=== PATIENT | female | born 1935 | race Caucasian/White ===

== ENCOUNTER → 2016-07-02 | Outpatient (CLI) | payer BC ==
[~2016-07-02] MED LIST: ADVIN25/60 INH; ALBU1AER9 INH; DABI150C PO; LEVO-18 PO; LEVO25TA5 PO; LORA-741 PO; TPRSR/25 PO; TSSP PO
--- NOTE | 2016-07-02 11:59 | DIAGNOSTIC IMAGING REPORT ---
CHEST 2 VIEWS ROUTINE CLINICAL HISTORY: COUGH DIFFICULTY BREATHING COMPARISON STUDY: 10/17/2015 FINDINGS: The cardiac and mediastinal contours are normal. There is no evidence of focal pulmonary consolidation. There is no evidence of failure. No pleural effusions are visualized.[ IMPRESSION: No active disease in the chest. Electronically signed by: Daniel Key M.D. 07/02/2016 11:57 AM Dictated Date/Time: 07/02/2016 11:57 AM
== END | disposition home or self-care (01) ==
LOC: C.RADPV 11:33
PROVIDERS: ATTEND Nurse Practitioner
DX: R05 Cough (principal)

== ENCOUNTER → 2016-07-09 | Outpatient (CLI) | payer BC ==
[2016-07-09 12:51] LABS: BASO % 0.3 %; BASO ABS # 0.03 K/uL (0-0.2); COMPLETE YES; EOS % 1.1 %; HEMATOCRIT 41.7 % (37-47); IG% 0.6 %; LYMPH % 19.6 %; MEAN CELL VOLUME 93.9 fL (80-100); MEAN CORPUSCULAR HEMOGLOBIN 32.7 pg (25-34); MEAN CORPUSCULAR HGB CONC 34.8 g/dl (32-36); MEAN PLATELET VOLUME 11.2 fL (7.4-10.4); MONO % 8.2 %; NEUT % 70.2 %; PLATELET COUNT 352 K/uL (130-400); RED BLOOD COUNT 4.44 M/uL (4.2-5.4); WHITE BLOOD COUNT 10.73 K/uL (4.8-10.8)
[2016-07-09 13:10] LABS: ALT/SGPT 27 U/L (12-78); BLOOD UREA NITROGEN 14 mg/dl (7-18); BUN/CREATININE RATIO 21.8 (10-20); CALCIUM 9.4 mg/dl (8.5-10.1); CARBON DIOXIDE 26 mmol/L (21-32); CHLORIDE 95 mmol/L (98-107); CREATININE 0.62 mg/dl (0.60-1.20); GLUCOSE 84 mg/dl (70-99); POTASSIUM 4.3 mmol/L (3.5-5.1); SODIUM 132 mmol/L (136-145)
[2016-07-09 13:20] LABS: ALB/GLOB RATIO 0.8 (0.9-2); ALKALINE PHOSPHATASE 91 U/L (45-117); AST/SGOT 21 U/L (15-37)
== END | disposition home or self-care (01) ==
LOC: C.LABPVFM 10:11
PROVIDERS: ATTEND Nurse Practitioner
DX: I10 Essential (primary) hypertension (principal); E55.9 Vitamin D deficiency, unspecified

== ENCOUNTER → 2016-08-02 | Outpatient (CLI) | payer BC | END | disposition home or self-care (01) | LOC: C.MAMM 14:09 | PROVIDERS: ATTEND Family Medicine | DX: M81.0 Age-related osteoporosis without current pathological fracture (principal); M85.88 Other specified disorders of bone density and structure, other site; M85.851 Other specified disorders of bone density and structure, right thigh; M85.852 Other specified disorders of bone density and structure, left thigh ==

== ENCOUNTER → 2016-08-11 | Outpatient (CLI) | payer BC | END | disposition home or self-care (01) | LOC: C.LABPVFM 12:20 | PROVIDERS: ATTEND Family Medicine | DX: R05 Cough (principal) ==

== ENCOUNTER → 2016-08-12 | Outpatient (CLI) | payer BC | END | disposition home or self-care (01) | LOC: C.LABPVFM 10:04 | PROVIDERS: ATTEND Family Medicine | DX: R05 Cough (principal) ==

== ENCOUNTER → 2016-08-13 | Outpatient (CLI) | payer BC ==
--- NOTE | 2016-08-13 09:48 | DIAGNOSTIC IMAGING REPORT ---
ULTRASOUND KIDNEYS AND BLADDER CLINICAL HISTORY: Hyponatremia. COMPARISON STUDY: Abdominal CT dated 12/31/2009. TECHNIQUE: Real-time, grayscale, and color flow sonography of the kidneys and bladder is performed. Images are reviewed in the transverse and longitudinal planes. FINDINGS: Kidneys: The kidneys are normal in size and echotexture. The right kidney measures 9.1 x 3.3 x 4.6 cm and the left kidney measures 9.8 x 4.8 x 4.8 cm. There is no hydronephrosis. No shadowing renal calculi are identified. There is no sonographic evidence of contour deforming renal mass lesion. No perinephric fluid is identified. Bladder: The bladder is normal in appearance. Bilateral ureteral jets were seen. Pleural spaces: There is a small right pleural effusion with associated volume of 75 cc. IMPRESSION: 1. The kidneys are normal in size and without hydronephrosis. 2. The bladder is normal as imaged. 3. Small right pleural effusion. Electronically signed by: Joe Simon M.D. 08/13/2016 9:46 AM Dictated Date/Time: 08/13/2016 9:45 AM
== END | disposition home or self-care (01) ==
LOC: C.ULTR 09:07
PROVIDERS: ATTEND Family Medicine
DX: E87.1 Hypo-osmolality and hyponatremia (principal)

== ENCOUNTER → 2016-08-24 | Outpatient (CLI) | payer BC ==
--- NOTE | 2016-08-24 13:02 | DIAGNOSTIC IMAGING REPORT ---
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 Cough. COMPARISON STUDY: Chest CT July 15, 2014 and chest radiograph July 02, 2016. CT DOSE: 208.73 mGy.cm TECHNIQUE: Axial images of the chest were obtained without IV contrast. Images were reviewed in the axial, sagittal, and coronal planes. IV contrast was not administered for this examination. FINDINGS: No enlarged axillary, mediastinal or hilar lymph nodes are present. Size of the heart is at the upper limits of normal. Small right and trace left pleural effusions are present. There is mild groundglass opacity. There is mild interlobular septal thickening. This suggests mild pulmonary edema. Scattered minimal tree-in-bud opacities are noted within the lungs and are most evident within the anterior basilar segment of the right lower lobe. There is no lobar consolidation. Central airways are patent. No cavitation is present. Bony thorax is stable. Upper abdomen is unremarkable on this unenhanced exam. IMPRESSION: 1. Small right and trace left pleural effusions. 2. Mild groundglass opacities and interlobular septal thickening which suggests mild pulmonary edema. 3. Minimal scattered tree-in-bud opacities, most evident within the right lower lobe. The findings suggest bronchiolitis and likely reflect a mild infectious process. No confluent consolidation. Electronically signed by: Reginaldo Barnes M.D. 08/24/2016 1:01 PM Dictated Date/Time: 08/24/2016 12:54 PM
== END | disposition home or self-care (01) ==
LOC: C.CTS 12:21
PROVIDERS: ATTEND Internal Medicine Pulmonary Disease
DX: B44.89 Other forms of aspergillosis (principal); J90 Pleural effusion, not elsewhere classified

== ENCOUNTER → 2016-08-27 | Outpatient (CLI) | payer BC | END | disposition home or self-care (01) | LOC: C.LABPVFM 10:14 | PROVIDERS: ATTEND Internal Medicine Pulmonary Disease | DX: B44.89 Other forms of aspergillosis (principal) ==

== ENCOUNTER → 2016-10-06 | Outpatient (CLI) | payer BC ==
--- NOTE | 2016-10-06 11:20 | DIAGNOSTIC IMAGING REPORT ---
LUMBAR SPINE MRI HISTORY: Right-sided back and leg pain. TECHNIQUE: Multiplanar multisequence MRI of the lumbar spine was performed without the use of contrast. COMPARISON: None. FINDINGS: For the purpose of the report the L5-S1 disc space will be located on axial image 23 of 25. Moderate dextroscoliosis. 5 mm of anterolisthesis of L4 on L5 and 9 mm of anterolisthesis of L5 on S1. Moderate to severe facet degenerative changes at L4-L5 and L5-S1. Moderate to severe disc space narrowing at L1-L2, L2-L3, and L5-S1. There is mild disc space narrowing at L3-L4 and L4-L5. There are endplate osteophytes seen at L1-L3. Endplate edema and mild prevertebral edema at L2-L3 is likely due to the degenerative change. No definite fractures identified. The conus terminates at the L1 level. The visualized retroperitoneal soft tissues are unremarkable. L1-L2: Small broad-based posterior disc bulge without significant central canal narrowing. There is mild left neural foraminal narrowing. L2-L3: Broad-based posterior disc bulge with mild ligamentum and facet hypertrophy resulting in mild central canal and mild right neural foraminal narrowing. There is moderate left neural foraminal narrowing. L3-L4: Broad-based posterior disc bulge with ligamentum and facet hypertrophy resulting in mild central canal and mild bilateral neural foraminal narrowing. L4-L5: Broad-based posterior disc bulge with ligamentum and facet hypertrophy. In conjunction with the spondylolisthesis this results in moderate central canal and mild to moderate bilateral neural foraminal narrowing. L5-S1: Broad-based posterior disc bulge with facet hypertrophy. In conjunction with the spondylolisthesis this results in moderate central canal narrowing and severe right neural foraminal narrowing. There is moderate to severe left neural foraminal narrowing. IMPRESSION: 1. Moderate dextroscoliosis. 2. Anterolisthesis of L4 on L5 and L5 on S1 as described above. 3. Multilevel degenerative disc disease as described above most pronounced at the L4-L5 and L5-S1 levels which results in moderate central canal narrowing. Electronically signed by: Bk Alvarez M.D. 10/06/2016 11:19 AM Dictated Date/Time: 10/06/2016 11:07 AM
== END | disposition home or self-care (01) ==
LOC: C.MRI 09:39
PROVIDERS: ATTEND Orthopaedic Surgery Orthopaedic Surgery of the Spine
DX: M54.5 Low back pain (principal); M41.80 Other forms of scoliosis, site unspecified; M43.16 Spondylolisthesis, lumbar region; M51.36 Other intervertebral disc degeneration, lumbar region; M51.37 Other intervertebral disc degeneration, lumbosacral region; I10 Essential (primary) hypertension

== ENCOUNTER → 2016-10-06 | Outpatient (CLI) | payer BC ==
[2016-10-06 10:33] LABS: BLOOD UREA NITROGEN 24 mg/dl (7-18); BUN/CREATININE RATIO 38.1 (10-20); CARBON DIOXIDE 31 mmol/L (21-32); CHLORIDE 97 mmol/L (98-107); CREATININE 0.62 mg/dl (0.60-1.20); GLUCOSE 71 mg/dl (70-99); POTASSIUM 4.5 mmol/L (3.5-5.1); SODIUM 133 mmol/L (136-145)
[2016-10-06 10:34] LABS: PHOSPHORUS 3.9 mg/dl (2.5-4.9)
== END | disposition home or self-care (01) ==
LOC: C.LAB 09:40
PROVIDERS: ATTEND Internal Medicine Nephrology
DX: I10 Essential (primary) hypertension (principal)

== ENCOUNTER → 2016-10-27 | Outpatient (CLI) | payer BC ==
[2016-10-27 18:37] LABS: BLOOD UREA NITROGEN 16 mg/dl (7-18); CALCIUM 9.2 mg/dl (8.5-10.1); CARBON DIOXIDE 31 mmol/L (21-32); CHLORIDE 93 mmol/L (98-107); GLUCOSE 87 mg/dl (70-99); PHOSPHORUS 3.4 mg/dl (2.5-4.9); POTASSIUM 4.5 mmol/L (3.5-5.1); SODIUM 130 mmol/L (136-145)
== END | disposition home or self-care (01) ==
LOC: C.LABPVFM 11:52
PROVIDERS: ATTEND Internal Medicine Nephrology
DX: E22.2 Syndrome of inappropriate secretion of antidiuretic hormone (principal); B44.89 Other forms of aspergillosis

== ENCOUNTER → 2016-12-02 | Outpatient (CLI) | payer BC ==
--- NOTE | 2016-12-02 13:49 | MAMMOGRAPHY REPORT ---
UNILATERAL LEFT DIGITAL DIAGNOSTIC MAMMOGRAM TOMOSYNTHESIS WITH CAD AND TARGETED LEFT ULTRASOUND: 12/02 CLINICAL HISTORY: 81-year-old woman presents after her physician found a lump in the lateral left demetra ast. Patient is unable to feel the lump herself. No skin erythema, thickening or nipple discharge. No family history of breast cancer. TECHNIQUE: Left breast tomosynthesis in addition to standard 2D mammography was performed. Current st udy was also evaluated with a Computer Aided Detection (CAD) system. COMPARISON: Comparison is made to exams dated: 12/30/2015 mammogram, 12/24/2014 mammogram, 09/19/2012 ma mmogram, 09/08/2010 mammogram - [facility], 09/23/2008, and 09/21/2007. BREAST COMPOSITION: There are scattered areas of fibroglandular density in the left breast. FINDINGS: No new suspicious mass, architectural distortion or cluster of microcalcifications is seen in the left breast. A skin palpable marker was not placed as the patient is unable to feel the lump herself. Targeted ultrasound was performed in the area of palpable lump identified by her physician, in the ap proximate 3:00 left breast, 4 cm from the nipple. Real-time high-resolution ultrasound performed fro m the 2:00, 3:00 and 4:00 axes demonstrates no suspicious solid or cystic mass. Normal fibroglandula r tissue is seen. IMPRESSION: ACR BI-RADS CATEGORY 2: BENIGN, TARGETED ULTRASOUND ACR BI-RADS CATEGORY 2: BENIGN Stable mammographic appearance of the left breast. There is no mammographic or targeted sonographic evidence of malignancy. No suspicious mammographic or sonographic abnormality is identified to expla in the palpable lump in the lateral left breast, identified by the patient's physician. Therefore, c linical follow-up is recommended, as biopsy of a clinically suspicious mass should not be precluded b y negative imaging. Otherwise, return to annual screening mammography schedule (due December 2016). Approximately 10% of breast cancers are not detected with mammography. A negative mammographic report should not delay biopsy if a clinically suggestive mass is present. Ann Mckeon M.D. ay/:12/02/2016 13:20:23 Accounting Manager Cpa: Maia Velazquez, [facility] letter sent: Normal 1/2 BI-RADS Code: ACR BI-RADS Category 2: Benign Ultrasound BI-RADS: ACR BI-RADS Category 2: Benign
== END | disposition home or self-care (01) ==
LOC: C.MAMM 12:49
PROVIDERS: ATTEND Family Medicine
DX: N63 Unspecified lump in breast (principal)

== ENCOUNTER → 2016-12-23 | Outpatient (CLI) | payer BC ==
[2016-12-23 18:30] LABS: BLOOD UREA NITROGEN 18 mg/dl (7-18); BUN/CREATININE RATIO 28.3 (10-20); CALCIUM 8.4 mg/dl (8.5-10.1); CARBON DIOXIDE 29 mmol/L (21-32); CHLORIDE 98 mmol/L (98-107); CREATININE 0.63 mg/dl (0.60-1.20); GLUCOSE 77 mg/dl (70-99); PHOSPHORUS 3.9 mg/dl (2.5-4.9); POTASSIUM 4.4 mmol/L (3.5-5.1); SODIUM 133 mmol/L (136-145)
== END | disposition home or self-care (01) ==
LOC: C.LABPVFM 10:28
PROVIDERS: ATTEND Internal Medicine Nephrology
DX: E03.9 Hypothyroidism, unspecified (principal); E22.2 Syndrome of inappropriate secretion of antidiuretic hormone

== ENCOUNTER → 2017-01-07 | Outpatient (CLI) | payer BC ==
--- NOTE | 2017-01-07 11:20 | DIAGNOSTIC IMAGING REPORT ---
CHEST 2 VIEWS ROUTINE HISTORY: 81 years-old Female R05 acute cough COMPARISON: Chest radiograph 07/02/2016, chest CT 08/24/2016 TECHNIQUE: Frontal and lateral views of the chest FINDINGS: Cardiomediastinal and hilar silhouettes are within normal limits. There is atherosclerosis of the aorta. Lungs are mildly hyperinflated. There is no pneumothorax, pleural effusion, focal airspace consolidation or overt pulmonary edema. There is convex left curvature of the lumbar spine with multilevel degenerative changes present. IMPRESSION: Mild hyperinflation without acute cardiopulmonary process. The above report was generated using voice recognition software. It may contain grammatical, syntax or spelling errors. Electronically signed by: Anthony Kitchen M.D. 01/07/2017 11:18 AM Dictated Date/Time: 01/07/2017 11:17 AM
== END | disposition home or self-care (01) ==
LOC: C.RAD1850 10:57
PROVIDERS: ATTEND Physician Assistant
DX: R05 Cough (principal)

== ENCOUNTER → 2017-05-03 | Outpatient (CLI) | payer BC ==
[2017-05-03 17:58] LABS: BLOOD UREA NITROGEN 21 mg/dl (7-18); BUN/CREATININE RATIO 34.9 (10-20); CALCIUM 8.9 mg/dl (8.5-10.1); CARBON DIOXIDE 29 mmol/L (21-32); CHLORIDE 97 mmol/L (98-107); CREATININE 0.61 mg/dl (0.60-1.20); GLUCOSE 93 mg/dl (70-99); MAGNESIUM 2.2 mg/dl (1.8-2.4); POTASSIUM 4.1 mmol/L (3.5-5.1); SODIUM 131 mmol/L (136-145)
[2017-05-03 17:59] LABS: PHOSPHORUS 3.9 mg/dl (2.5-4.9)
== END | disposition home or self-care (01) ==
LOC: C.LABPVFM 13:17
PROVIDERS: ATTEND Internal Medicine Nephrology
DX: E22.2 Syndrome of inappropriate secretion of antidiuretic hormone (principal)

== ENCOUNTER → 2017-06-01 | Outpatient (CLI) | payer BC ==
--- NOTE | 2017-06-01 15:45 | DIAGNOSTIC IMAGING REPORT ---
BILATERAL LOWER EXTREMITY VENOUS DOPPLER HISTORY: Acute pain of the right lower extremity R23.4 Recent skin [id number] COMPARISON STUDY: None. FINDINGS: There is normal compressibility, flow, and augmentation within the bilateral lower extremity deep venous systems. IMPRESSION: No sonographic evidence of deep venous thrombosis within the right or left lower extremity. Electronically signed by: Anthony Kitchen M.D. 06/01/2017 3:44 PM Dictated Date/Time: 06/01/2017 3:43 PM
--- NOTE | 2017-06-01 15:55 | DIAGNOSTIC IMAGING REPORT ---
ARTERIAL DOPPLER ULTRASOUND LOWER EXTREMITY BILATERAL CLINICAL HISTORY: R23.4 Recent skin [id number] possible arterial insufficiency. COMPARISON STUDY: No previous studies for comparison. FINDINGS: Color flow and spectral waveform analysis was performed. The right arm brachial systolic pressure was 178 mmHg. The left arm brachial systolic pressure was 177 mmHg. The right posterior tibial systolic pressure was 190 mmHg. The left posterior tibial systolic pressure was 189 mmHg. The right dorsalis pedis systolic pressure was 187 mmHg. The left dorsalis pedis systolic pressure was 188 mmHg. The ankle arm indices were normal bilaterally measuring 1.1. No elevated velocities are visualized. On the right there is triphasic flow within the common femoral superficial femoral and popliteal arteries. There is biphasic flow within the anterior tibial. There is triphasic flow within the posterior tibial. There is biphasic flow within the peroneal. In the left. There is triphasic flow within the common femoral and superficial femoral arteries. There is biphasic flow within the popliteal anterior tibial arteries. There is triphasic flow within the posterior tibial and peroneal arteries. IMPRESSION: No evidence of lower extremity arterial stenosis. Electronically signed by: Daniel Key M.D. 06/01/2017 3:54 PM Dictated Date/Time: 06/01/2017 3:51 PM
== END | disposition home or self-care (01) ==
LOC: C.ULTR 14:00
PROVIDERS: ATTEND Family Medicine
DX: R23.4 Changes in skin texture (principal); M79.604 Pain in right leg

== ENCOUNTER → 2017-06-13 | Outpatient (CLI) | payer BC | END | disposition home or self-care (01) | LOC: C.RDSM 09:00 | PROVIDERS: ATTEND Physical Medicine & Rehabilitation Sports Medicine | DX: M25.511 Pain in right shoulder (principal); M25.512 Pain in left shoulder ==

== ENCOUNTER → 2017-06-21 | Outpatient (CLI) | payer BC ==
--- NOTE | 2017-06-21 14:11 | DIAGNOSTIC IMAGING REPORT ---
FLUOROSCOPIC GUIDED LEFT SHOULDER ARTHROGRAM FLUOROSCOPY TIME: 5 seconds. HISTORY: Left shoulder pain.. PROCEDURE: After obtaining written informed consent, the patient was placed supine on the fluoroscopy table. A suitable site for needle insertion was marked using fluoroscopic guidance. The left shoulder was prepped and draped in the usual sterile fashion. 1% lidocaine was used for skin, subcutaneous and deep soft tissue anesthesia. Under intermittent fluoroscopic guidance, a 22 gauge 1.5 inch needle was inserted into the left glenohumeral joint. A total of 14 cc of one-to-one mixture of dilute Gadavist and Optiray 300 were injected. The needle was then removed. There were no apparent complications. The patient was transported to MR for further imaging. IMPRESSION: Fluoroscopic-guided left shoulder arthrogram without immediate complication. Total injected volume was 14 cc. MR portion of the examination will be dictated separately. Electronically signed by: Bk Alvarez M.D. 06/21/2017 2:10 PM Dictated Date/Time: 06/21/2017 2:10 PM
--- NOTE | 2017-06-22 07:38 | DIAGNOSTIC IMAGING REPORT ---
L UPPER EXTREMITY JOINT W/ CLINICAL HISTORY: 81 years-old Female with LT SHOULDER PAIN. Chronic left shoulder pain COMPARISON: Left shoulder radiographs 06/13/2017. TECHNIQUE: Multiplanar, multi sequence MRI of the left shoulder was performed following the intra-articular administration of contrast solution containing Gadavist. FINDINGS: The large field view kier pleater localizer images demonstrate no gross abnormality. ROTATOR CUFF: There is mild fraying of the anterior insertional fibers supraspinatus tendon suggesting low-grade articular sided insertional tearing. No high-grade or full-thickness tear. Mild supraspinatus and infraspinatus tendinosis. The teres minor tendon appears intact. Moderate tendinosis of the subscapularis tendon with interstitial contrast, likely secondary to recent procedure. No full-thickness tear. The rotator cuff musculature is normal in morphology and signal. BICEPS TENDON: The longhead biceps tendon is intact. No evidence of tendinosis. The biceps mitchel and anchor are intact. LABRUM: There is multifocal irregularity of the labrum which appears diminutive. Tear of the anterior and posterior portions of the superior labrum which is likely chronic without associated edema to suggest acute tear. There is no evidence for a paralabral cyst. GLENOHUMERAL JOINT: Severe joint space narrowing with multifocal chondral thinning and prominent marginal spurring with subchondral sclerosis involves the glenohumeral joint with large subchondral cysts within the glenoid. No definite intra-articular loose body identified. No acute fracture or dislocation identified. ACROMIOCLAVICULAR JOINT: Only minimal degenerative changes of the AC joint. No evidence of os acromiale. There is trace subacromial/subdeltoid bursitis. OUTLET SPACES: The suprascapular notch and quadrilateral space are without obstructing or space occupying lesions. BONE MARROW: No focal abnormality, fracture or marrow occupying lesion. SOFT TISSUES: The periarticular soft tissues are unremarkable. IMPRESSION: 1. Severe osteoarthritis of the left glenohumeral joint with chondral thinning, prominent marginal spurring and large subchondral cysts within the glenoid. No definite intra-articular loose body identified. 2. Mild fraying of the anterior insertional supraspinatus tendon without high-grade partial, full-thickness tear or retraction identified. Mild supraspinatus and infraspinatus tendinosis without muscular atrophy. 3. Intact long head biceps tendon. 4. Trace subacromial/subdeltoid bursitis. The above report was generated using voice recognition software. It may contain grammatical, syntax or spelling errors. Electronically signed by: Anthony Kitchen M.D. 06/22/2017 7:37 AM Dictated Date/Time: 06/21/2017 3:03 PM
== END | disposition home or self-care (01) ==
LOC: C.MRIBC 13:03
PROVIDERS: ATTEND Physical Medicine & Rehabilitation Sports Medicine
DX: M25.511 Pain in right shoulder (principal); M25.512 Pain in left shoulder; M19.012 Primary osteoarthritis, left shoulder; M75.92 Shoulder lesion, unspecified, left shoulder; M85.40 Solitary bone cyst, unspecified site

== ENCOUNTER 2020-02-14 08:03 | Inpatient (IN) ==
[2020-02-14] MEDS ORDERED: ASPIRIN CHEW 324 MG PO STA (08:21)
[2020-02-14] MEDS ORDERED: NITROGLYCERIN SL 0.4 MG/TAB TAB SL PRN ×2 (08:21→12:56)
--- NOTE | 2020-02-14 08:28 | Emergency Department Note ---
History of Present Illness General Chief complaint: Chest Pain Stated complaint: CHEST PAIN,HTN Time Seen by Provider: 02/14/20 08:11 Source: patient Mode of arrival: ambulatory Limitations: no limitations History of Present Illness Maximum Pain Intensity: 5 This patient is an 84-year-old female who presents to the emergency department accompanied by a friend for evaluation of chest pain. Patient reports she has had central chest pain which started about 2 hours prior to arrival. The patient reports she had gone outside to sweep up her shed and when she came back inside and started making coffee, she developed a pain in the center of her chest. She reports the pain is a 5/10. It feels like a pressure in the center of her chest. Pain is slightly worse on the left side of her chest. Pain does not radiate anywhere. She denies shortness of breath, nausea/vomiting or recent illness. She checked her blood pressure and noted it was very elevated. Patient has a history of asthma and reports that she used her albuterol inhaler without any improvement of the pain. She states that nothing makes the pain better or worse. It is not exertional. She has a history of atrial fibrillation and also notes that her blood pressure has been elevated recently and she has been working with her asset protection assistant and primary care provider to help control this. She denies any history of MO, noting that her most recent stress test was in 2004. She follows with Dr. Bal from cardiology. Home Medications Home Medications Medication Instructions Recorded Confirmed Type cholecalciferol (vitamin D3) 50 2,000 units PO DAILY 08/28/18 02/14/20 History mcg (2,000 unit) capsule lutein 20 mg capsule 20 mg PO DAILY 08/28/18 02/14/20 History calcium carbonate 500 mg calcium 500 mg PO DAILY tab 01/09/19 02/14/20 History (1,250 mg) chewable tablet omega-3 fatty acids 1,000 mg 1,000 mg PO DAILY 01/09/19 02/14/20 History capsule acetaminophen 500 mg capsule 500 mg PO BID PRN cap 03/20/19 02/14/20 History biotin 2,500 mcg capsule 2,500 mcg PO DAILY cap 03/20/19 02/14/20 History glucosamine sulfate 500 mg capsule 500 mg PO DAILY cap 03/20/19 02/14/20 History metoprolol tartrate 50 mg tablet 75 mg PO BID #90 tab 06/19/19 02/14/20 Rx apixaban 5 mg tablet 5 mg PO BID #60 tab 09/07/19 02/14/20 Rx montelukast 10 mg tablet 10 mg PO DAILY #90 tab 10/29/19 02/14/20 Rx albuterol sulfate 90 mcg/actuation 2 puffs INHALATION QID PRN gm 12/24/19 02/14/20 History aerosol inhaler budesonide-formoterol HFA 160 2 puffs INHALATION BID gm 12/24/19 02/14/20 History mcg-4.5 mcg/actuation aerosol inhaler zolpidem 5 mg tablet 5 mg PO DAILY #30 tab 01/23/20 02/14/20 Rx levothyroxine 25 mcg tablet 25 mcg PO DAILY #90 tab 02/08/20 02/14/20 Rx losartan 100 mg tablet 100 mg PO DAILY #90 tab 02/08/20 02/14/20 Rx Allergies Allergy/AdvReac Type Severity Reaction Status Date / Time clomipramine AdvReac Intermediate FLU-LIKE Verified 02/14/20 08:53 SYMPTOMS Dust Mite Extract Allergy Unknown Unknown Uncoded 02/14/20 08:53 Past Med/Surg History Medical History Diverticulosis Hypertension SIADH (syndrome of inappropriate ADH production) Surgical History H/O cataract removal with insertion of prosthetic lens H/O shoulder surgery History of dilatation and curettage History of gynecological procedure Insertion of pessary History of tooth extraction S/P cataract surgery S/P T&A (status post tonsillectomy and adenoidectomy) Family History Father Family history of asthma Pneumonia H/O heart bypass surgery Osteoporosis Asthma Mother Hypertension Osteoporosis Denies family history of Ovarian cancer Prostate cancer Myocardial infarction Breast cancer Colorectal cancer Social History Smoking Status: Former smoker Second Hand Exposure: No; Hx Alcohol Use: Yes Alcohol type: wine Hx Substance Use: No Preferred Language: Azerbaijani Communication Ability: Effective Visual Impairment: Limited Hearing Ability: Normal Clinical Operations Leader Required: No Beliefs That Will Affect Care: None marital status: single Current Living Situation: Spouse Current Living Situation Comment: in a house current occupational status: employed Other Information That Helps Us Care for You: No Feels Safe at Home: Yes Safety Concerns: Feels Safe At This Time caffeine: Yes Dental Care, Regularly: Yes Physical Activity Frequency: 3-4 Times per Week Seatbelt Use: always Sunscreen Use: Yes Review of Systems A total of 10 systems reviewed and were otherwise negative Physical Exam Vital Signs Vital Signs - 24 hr 02/14/20 08:07 02/14/20 08:18 02/14/20 08:35 Temperature 36.3 C L Temperature Source Oral Pulse Rate 97 H 87 Pulse Rate [Apical] 91 H Pulse Rhythm Irregular Pulse Rhythm [Apical] Irregular Pulse Strength [Apical] Normal Respiratory Rate 18 22 22 Respiratory Effort / Characteristics Non-Labored Spontaneous Non-Labored Spontaneous Respiratory Depth Normal Normal Respiratory Pattern Regular Blood Pressure 199/135 H Blood Pressure [Left Arm] 216/137 H Blood Pressure Mean 156 Blood Pressure Mean [Left Arm] 163 Blood Pressure Position Sitting Blood Pressure Position [Left Arm] Lying Pulse Oximetry 96 96 96 Oxygen Delivery Method Room Air Room Air Room Air Sepsis Recent Fever Within 48 Hours No Sepsis New/Unexplained Change in Mental Status N/A Sepsis Action Taken by Nursing No Action Required 02/14/20 10:12 02/14/20 12:08 Temperature Temperature Source Pulse Rate Pulse Rate [Apical] 89 95 H Pulse Rhythm Pulse Rhythm [Apical] Irregular Pulse Strength [Apical] Normal Respiratory Rate 20 20 Respiratory Effort / Characteristics Non-Labored Spontaneous Respiratory Depth Normal Respiratory Pattern Regular Blood Pressure Blood Pressure [Left Arm] 173/123 H 155/106 H Blood Pressure Mean Blood Pressure Mean [Left Arm] 139 122 Blood Pressure Position Blood Pressure Position [Left Arm] Sitting Pulse Oximetry 95 95 Oxygen Delivery Method Room Air Room Air Sepsis Recent Fever Within 48 Hours Sepsis New/Unexplained Change in Mental Status Sepsis Action Taken by Nursing VITALS: Vitals are noted on the nurse's note and reviewed by myself. GENERAL: This is an 84-year-old female, in no acute distress, nondiaphoretic. SKIN: The skin was without rashes. EARS: Moderate amount of cerumen in bilateral external auditory canals. EYES: Pupils equal round and reactive to light and accommodation. MOUTH: Mucous membranes moist. Tonsils are not enlarged. Pharynx without e rythema or exudate. NECK: Supple without nuchal rigidity. No lymphadenopathy. HEART: Regular rate, irregular rhythm without murmurs gallops or rubs. LUNGS: Clear to auscultation bilaterally without wheezes, rales or rhonchi. No retractions or accessory muscle use. ABDOMEN: Positive bowel sounds x 4. Soft, nontender to palpation. EXTREMITIES: No edema or calf tenderness. NEURO: Patient was alert and oriented to person place and time. Course Reevaluation(s) Reevaluation #1: Patient was reevaluated and reports her chest pain has resolved after the nitro. 0.5 inch Nitropaste was applied. Consultations Consultation #1: Dr. Aura ROTHMAN hospitalist Administered Medications Discontinued Medications Aspirin (Aspirin Chew 324 Mg) 324 mg PO NOW STA Stop: 02/14/20 08:22 Last Admin: 02/14/20 08:40 Dose: 324 mg Documented by: [id number] Nitroglycerin (Nitroglycerin Sl 0.4 Mg/Tab Tab) 0.4 mg SL UD PRN PRN Reason: Chest Pain Stop: 03/15/20 08:20 Last Admin: 02/14/20 08:40 Dose: 0.4 mg Documented by: [id number] Nitroglycerin (Nitroglycerin 2% Ointment 30gm Tube) 0.5 inch EXT NOW STA Stop: 02/14/20 09:37 Last Admin: 02/14/20 10:08 Dose: 0.5 inch Documented by: [id number] Medical Decision Making Differential Diagnosis Differential diagnosis includes acute coronary syndrome, pulmonary embolism, pneumothorax, pericarditis, myocarditis, endocarditis, anxiety, musculoskeletal pain, GERD, costochondritis, pneumonia, among others. Medical Records Attestation: I reviewed the patient's medical records. Home Medications Current Medication List: was personally reviewed by me Laboratory Data Attestation: I reviewed the patient's lab results. Result diagrams: 02/14/20 08:20 02/14/20 08:20 Lab Results 02/14/20 02/14/20 02/14/20 Range/Units 08:20 08:20 08:20 WBC 9.00 (4.8-10.8) K/uL RBC 4.67 (4.2-5.4) M/uL Hgb 15.6 (12.0-16.0) g/dL Hct 45.1 (37-47) % MCV 96.6 (80-100) fL MCH 33.4 (25-34) pg MCHC 34.6 (32-36) g/dL RDW Std Deviation 45.7 (36.4-46.3) fL RDW Coeff of Geo 13.0 (11.5-14.5) % Plt Count 304 (130-400) K/uL MPV 10.9 H (7.4-10.4) fL Immature Gran % (Auto) 0.2 % Neut % (Auto) 66.0 % Lymph % (Auto) 23.3 % [place] % (Auto) 9.1 % Eos % (Auto) 1.0 % Baso % (Auto) 0.4 % Neut # (Auto) 5.93 (1.4-6.5) K/uL Lymph # (Auto) 2.10 (1.2-3.4) K/uL [place] # (Auto) 0.82 H (0.11-0.59) K/uL Eos # (Auto) 0.09 (0-0.5) K/uL Baso # (Auto) 0.04 (0-0.2) K/uL Immature Gran # (Auto) 0.02 (0.00-0.02) K/uL PT 11.4 (9.0-12.0) Seconds INR 1.1 (0.9-1.1) APTT 32.3 H (21.0-31.0) Seconds PTT Ratio 1.2 Sodium 131 L (136-145) mmol/L Potassium 4.3 (3.5-5.1) mmol/L Chloride 97 L (98-107) mmol/L Carbon Dioxide 29 (21-32) mmol/L Anion Gap 5.0 (3-11) BUN 20 H (7-18) mg/dl Creatinine 0.80 (0.6-1.2) mg/dl Est Cr Clr Drug Dosing 36.5 ml/min Est GFR ( Amer) 79.6 Est GFR (Non-Af Amer) 68.7 BUN/Creatinine Ratio 24.9 H (10-20) Glucose 106 H (70-99) mg/dl Calcium 8.7 (8.5-10.1) mg/dl Magnesium (1.8-2.4) mg/dl Total Bilirubin 0.4 (0.2-1) mg/dl AST 29 (15-37) U/L ALT 40 (12-78) U/L Alkaline Phosphatase 134 H (45-117) U/L Troponin I < 0.015 (0-0.045) ng/ml Total Protein 7.5 (6.4-8.2) gm/dl Albumin 3.5 (3.4-5.0) gm/dl Globulin 4.0 (2.5-4.0) gm/dl Albumin/Globulin Ratio 0.9 (0.9-2) 02/14/20 02/14/20 02/14/20 Range/Units 10:43 11:36 11:38 WBC (4.8-10.8) K/uL RBC (4.2-5.4) M/uL Hgb (12.0-16.0) g/dL Hct (37-47) % MCV (80-100) fL MCH (25-34) pg MCHC (32-36) g/dL RDW Std Deviation (36.4-46.3) fL RDW Coeff of Geo (11.5-14.5) % Plt Count (130-400) K/uL MPV (7.4-10.4) fL Immature Gran % (Auto) % Neut % (Auto) % Lymph % (Auto) % [place] % (Auto) % Eos % (Auto) % Baso % (Auto) % Neut # (Auto) (1.4-6.5) K/uL Lymph # (Auto) (1.2-3.4) K/uL [place] # (Auto) (0.11-0.59) K/uL Eos # (Auto) (0-0.5) K/uL Baso # (Auto) (0-0.2) K/uL Immature Gran # (Auto) (0.00-0.02) K/uL PT (9.0-12.0) Seconds INR (0.9-1.1) APTT (21.0-31.0) Seconds PTT Ratio Sodium (136-145) mmol/L Potassium (3.5-5.1) mmol/L Chloride (98-107) mmol/L Carbon Dioxide (21-32) mmol/L Anion Gap (3-11) BUN (7-18) mg/dl Creatinine (0.6-1.2) mg/dl Est Cr Clr Drug Dosing ml/min Est GFR ( Amer) Est GFR (Non-Af Amer) BUN/Creatinine Ratio (10-20) Glucose (70-99) mg/dl Calcium (8.5-10.1) mg/dl Magnesium 2.2 (1.8-2.4) mg/dl Total Bilirubin (0.2-1) mg/dl AST (15-37) U/L ALT (12-78) U/L Alkaline Phosphatase (45-117) U/L Troponin I Cancelled 1.510 H* (0-0.045) ng/ml Total Protein (6.4-8.2) gm/dl Albumin (3.4-5.0) gm/dl Globulin (2.5-4.0) gm/dl Albumin/Globulin Ratio (0.9-2) Imaging Data Attestation: I personally reviewed and interpreted this imaging study as foll ows: Radiologist's Impression: XR chest 1V portable HISTORY: 84 years-old Female Chest Pain acute atypical chest pain COMPARISON: Chest radiograph 02/27/2019 TECHNIQUE: Portable AP view of the chest FINDINGS: Nipple shadow projects over the lateral left lung base. The cardiomediastinal and hilar silhouettes are within normal limits. Calcified plaque of the thoracic aortic arch. There is no pneumothorax, pleural effusion, airspace consolidation or overt pulmonary edema. Mild chronic interstitial coarsening. Degenerative changes of the shoulders and spine. IMPRESSION: No acute process. 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 Patient was placed on the equities trader. Patient was noted to be in atrial fibrillation at an initial rate of 91 bpm. The patient is an 84-year-old female who presents today complaining of chest pain which started about 2 hours prior to arrival. Labs revealed no leukocytosis, anemia or concerning electrolyte abnormalities. Patient is hyponatremic which is her baseline due to history of SIADH. Initial troponin was not elevated. Initial EKG shows no ST elevation or other acute ischemic changes. Patient is in atrial fibrillation which is normal for her. Patient received nitro with significant improvement of her symptoms. Nitropaste was applied. I am very suspicious of a cardiac source of her chest pain. The [facility] service was consulted and agrees to evaluate the patient for [facility] care. Impression & Plan Substernal chest pain Discharge Plan Visit Data Chief Complaint: Chest Pain Stated Complaint: CHEST PAIN,HTN ED Provider: Delfino Varghese ED Midlevel Provider: Guillermina Beard Discharge Problem: Substernal chest pain Patient Disposition: Admitted As Inpatient Discharge Instructions Interventions: ED Discharge Assessment Last Done: 02/14/20 13:45
[2020-02-14 08:30] LABS: Basophils # (auto) 0.04 K/uL (0-0.2); Basophils % (auto) 0.4 %; Eosinophils # (auto) 0.09 K/uL (0-0.5); Hematocrit (blood only) 45.1 % (37-47); Hemoglobin 15.6 g/dL (12.0-16.0); Immature Granulocytes # (auto) 0.02 K/uL (0.00-0.02); Immature Granulocytes % (auto) 0.2 %; Lymphocytes % (auto) 23.3 %; Mean Corpuscular Hemoglobin 33.4 pg (25-34); Mean Corpuscular Hgb Conc 34.6 g/dL (32-36); Mean Corpuscular Volume 96.6 fL (80-100); Mean Platelet Volume 10.9 fL (7.4-10.4); Monocytes # (auto) 0.82 K/uL (0.11-0.59); Monocytes % (auto) 9.1 %; Neutrophils # (auto) 5.93 K/uL (1.4-6.5); Platelet Count 304 K/uL (130-400); RDW Standard Deviation 45.7 fL (36.4-46.3); Red Blood Count 4.67 M/uL (4.2-5.4)
[2020-02-14 08:40] LABS: INR 1.1 (0.9-1.1); Partial Thromboplastin Ratio 1.2; Partial Thromboplastin Time 32.3 Seconds (21.0-31.0); Prothrombin Time 11.4 Seconds (9.0-12.0)
--- NOTE | 2020-02-14 08:51 | XRay Report ---
XR chest 1V portable HISTORY: 84 years-old Female Chest Pain acute atypical chest pain COMPARISON: Chest radiograph 02/27/2019 TECHNIQUE: Portable AP view of the chest FINDINGS: Nipple shadow projects over the lateral left lung base. The cardiomediastinal and hilar silhouettes a re within normal limits. Calcified plaque of the thoracic aortic arch. There is no pneumothorax, pleu ral effusion, airspace consolidation or overt pulmonary edema. Mild chronic interstitial coarsening. Degenerative changes of the shoulders and spine. IMPRESSION: No acute process. ACT 112: Negative or not required by law. The above report was generated using voice recognition software. It may contain grammatical, syntax o r spelling errors. Electronically signed by: Anthony Kitchen M.D. 02/14/2020 8:50 AM
[2020-02-14 08:58] LABS: Alanine Aminotransferase 40 U/L (12-78); Albumin Level 3.5 gm/dl (3.4-5.0); Aspartate Aminotransferase 29 U/L (15-37); BUN Creatinine Ratio 24.9 (10-20); Blood Urea Nitrogen 20 mg/dl (7-18); Calcium 8.7 mg/dl (8.5-10.1); Carbon Dioxide 29 mmol/L (21-32); Chloride 97 mmol/L (98-107); Creatinine Clr Calc Pharmacy 36.5 ml/min; Est GFR (African American) 79.6; Est GFR (Non-African American) 68.7; Glucose 106 mg/dl (70-99); Potassium 4.3 mmol/L (3.5-5.1); Sodium 131 mmol/L (136-145)
[2020-02-14 09:03] LABS: Albumin Globulin Ratio 0.9 (0.9-2); Alkaline Phosphatase 134 U/L (45-117); Bilirubin,Total 0.4 mg/dl (0.2-1); Total Protein 7.5 gm/dl (6.4-8.2); Troponin I < 0.015 ng/ml (0-0.045)
[2020-02-14] MEDS ORDERED: NITROGLYCERIN 2% OINTMENT 30GM TUBE EXT STA (09:36)
--- NOTE | 2020-02-14 10:08 | Emergency Department Note ---
ED Visit Note The patient was seen and examined with Guillermina Beard PA-C. I agree with the history, physical and findings. Please see the note for disposition and details. Chest pain relieved with nitroglycerin. Nitropaste applied. Patient was markedly hypertensive. Troponin negative. Further management necessary in the hospital. Patient in agreement. .
--- NOTE | 2020-02-14 12:09 | History & Physical Report ---
Date of Service February 14, 2020 Assessment & Plan (1) Chest pain: Hypertensive emergency vs. ACS. (2) NSTEMI (non-ST elevated myocardial infarction): Chest pain-free after nitro patch placed - we will continue 0.5 inch patch. ASA 324mg PO given in ER. Continue 81mg PO daily. Patient took Eliquis in ER around 11:30am with her other usual antihypertensives. Start heparin drip 11:30pm. Trend troponins to assess ACS versus hypertensive emergency with demand- ischemia. TTE Lipid panel and HbA1C with AM labs. Consult cardiology for consideration of cardiac catheterization. N.p.o. after midnight. (3) Hypertensive emergency: End organ damage with elevated troponin. States her blood pressure increases every time she gets colds due to her Raynauds disease. Exacerbated this morning due to sleeping in a tent overnight, in addition she did not take her morning medication until 11:30 AM. Patient took her own losartan and metoprolol while in the ER around 11:30am. Continue metoprolol tartrate 75 mg p.o. twice daily, losartan 100 mg p.o. daily (consider switching to taking this at night since her blood pressure is always elevated in the mornings suspect due to temperature overnight, see above) (4) Permanent atrial fibrillation: Continue metoprolol tartrate 75 mg p.o. twice daily for rate control. Switch Eliquis for heparin IV drip as above (5) Paroxysmal atrial flutter: As above for atrial fibrillation (6) Raynaud disease: Previously did poorly on amlodipine with increased swelling. Consider lower dose amlodipine vs ISMN While in hospital use heating pad/blankets to avoid vasoconstriction. 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 Continue home maintenance inhalers. (10) Subclinical hypothyroidism: Continue levothyroxine 25 mcg PO daily Admission and Anticipated Discharge Date Admission Date: 02/14/2020 History of Present Illness Chief Complaint: Chest pain Primary Care Provider: ELEUTERIO Randolph Annemarie Scanlon is an 84 year old female who presents to the ER with chest pain. Episode started this morning around 6:30am. Associated elevated sBP at home > 200, HR in 80s. Associated nausea, no SOB or diaphoresis. Severity 5/10 when it first came on. Substernal. No radiation. Non-exertional, non pleuritic. Fells like someone sitting on her chest. She tried her albuterol inhaler with not effect. She called her [facility] PCP answering service who advised her to come to the ER. At it's worse while coming to the ER by car. Relieved with nitroglycerin given in the ER. Current pain 0/10 with 0.5 inch nitro patch on. In the ER she was noticed to be hypertensive 216/137 maximum. She initially did not take her usual antihypertensives this morning, but took her home medications while in the ER around 11:30am. She does report having chest pains in the past related to her elevated blood pressure, however her pain today was more severe. She has known labile blood pressures which appear to be related to whenever she gets cold which exacerbated her Raynaud's disease. For example her blood pressure is more elevated in the mornings after being colder at night and in the winter. Last night she slept outside in a tent likely leading to her current hypertensive urgency/emergency. Allergies Allergy/AdvReac Type Severity Reaction Status Date / Time clomipramine AdvReac Intermediate FLU-LIKE Verified 02/14/20 08:53 SYMPTOMS Dust Mite Extract Allergy Unknown Unknown Uncoded 02/14/20 08:53 Home Medications Home Medications Medication Instructions Recorded Confirmed Type cholecalciferol (vitamin D3) 50 2,000 units PO DAILY 08/28/18 02/14/20 History mcg (2,000 unit) capsule lutein 20 mg capsule 20 mg PO DAILY 08/28/18 02/14/20 History calcium carbonate 500 mg calcium 500 mg PO DAILY tab 01/09/19 02/14/20 History (1,250 mg) chewable tablet omega-3 fatty acids 1,000 mg 1,000 mg PO DAILY 01/09/19 02/14/20 History capsule acetaminophen 500 mg capsule 500 mg PO BID PRN cap 03/20/19 02/14/20 History biotin 2,500 mcg capsule 2,500 mcg PO DAILY cap 03/20/19 02/14/20 History glucosamine sulfate 500 mg capsule 500 mg PO DAILY cap 03/20/19 02/14/20 History metoprolol tartrate 50 mg tablet 75 mg PO BID #90 tab 06/19/19 02/14/20 Rx apixaban 5 mg tablet 5 mg PO BID #60 tab 09/07/19 02/14/20 Rx montelukast 10 mg tablet 10 mg PO DAILY #90 tab 10/29/19 02/14/20 Rx albuterol sulfate 90 mcg/actuation 2 puffs INHALATION QID PRN gm 12/24/19 02/14/20 History aerosol inhaler budesonide-formoterol HFA 160 2 puffs INHALATION BID gm 12/24/19 02/14/20 History mcg-4.5 mcg/actuation aerosol inhaler zolpidem 5 mg tablet 5 mg PO DAILY #30 tab 01/23/20 02/14/20 Rx levothyroxine 25 mcg tablet 25 mcg PO DAILY #90 tab 02/08/20 02/14/20 Rx losartan 100 mg tablet 100 mg PO DAILY #90 tab 02/08/20 02/14/20 Rx Past Med/Surg History Medical History Asthma Diverticulosis Hypertension Permanent atrial fibrillation SIADH (syndrome of inappropriate ADH production) Surgical History H/O cataract removal with insertion of prosthetic lens H/O shoulder surgery History of dilatation and curettage History of gynecological procedure Insertion of pessary History of tooth extraction S/P cataract surgery S/P T&A (status post tonsillectomy and adenoidectomy) Family History Father Family history of asthma Pneumonia H/O heart bypass surgery Osteoporosis Asthma Mother Hypertension Osteoporosis Denies family history of Ovarian cancer Prostate cancer Myocardial infarction Breast cancer Colorectal cancer Social History Smoking Status: Former smoker Second Hand Exposure: No; Hx Alcohol Use: Yes Alcohol type: wine Hx Substance Use: No Preferred Language: Portuguese Communication Ability: Effective Visual Impairment: Limited Hearing Ability: Normal Outreach Librarian Required: No Beliefs That Will Affect Care: None marital status: single Current Living Situation: Spouse Current Living Situation Comment: in a house current occupational status: employed Other Information That Helps Us Care for You: No Feels Safe at Home: Yes Safety Concerns: Feels Safe At This Time caffeine: Yes Dental Care, Regularly: Yes Physical Activity Frequency: 3-4 Times per Week Seatbelt Use: always Sunscreen Use: Yes Review of Systems Review of Systems: All systems reviewed & are unremarkable except as noted in HPI & below Gastrointestinal: + dysphagia (intermittent once/6 months, not increasing in severity) Physical Exam Constitutional: well developed, well nourished and + frail appearing; no acute distress Eyes: + anicteric sclerae; normal pupil size ENMT: external ear and nose normal, oropharynx normal Neck: trachea midline, no thyromegaly Respiratory: normal respiratory effort, lungs clear to auscultation Cardiovascular: Rate/Rhythm: regular rate and + irregularly irregular Heart Sounds: no murmur Vessels: no JVD Extremities: normal capillary refill; no calf tenderness and no pedal edema Gastrointestinal (Abdomen): normal bowel sounds, soft, nontender, no hepatosplenomegaly Musculoskeletal: Enlarged but non-tender or swollen MCP joints b/l hands, equal Thenar eminence wasting b/l equal Skin: no rashes, warm and dry Neurologic: moves all extremities and awake; no focal motor deficits and not confused Speech / Cognition: normal speech Motor/Sensory: no tremor, no pronator drift and no sensory deficit Psychiatric: A+Ox3, euthymic affect Genitourinary: no CVA tenderness Lymphatic: no cervical or axillary lymphadenopathy Results & Data Results & Data ([facility]) Vital Signs (Past 12 Hours) Vital Signs Temp Pulse Pulse Resp BP BP Pulse Ox 02/14/20 10:12 89 20 173/123 H 95 02/14/20 08:35 87 22 96 02/14/20 08:18 91 H 22 216/137 H 96 02/14/20 08:07 36.3 C L 97 H 18 199/135 H 96 Diagnostic Findings XR chest 1V portable IMPRESSION: No acute process. ECG Indication: chest pain Rate (beats per minute): 94 Rhythm: atrial fibrillation Findings: no acute ischemic change Comparison ECG Date: from (Jul 04, 2014) Change: the following changes noted (Septal infarct now present, atrial fibrillation) Code Status & VTE Plan Code Status Full VTE Prophylaxis Plan VTE Prophylaxis will be ordered: Yes PG Care Time/CCT Total # of Minutes Spent Total Time Spent with Patient: Total time spent is greater than 50% in coordination of care (as documented) at patient's floor/unit and/or counseling patient: Coding Level of Care Code 35208 Initial Inpt Care Lvl 3 Diagnoses Chest pain R07.9 NSTEMI (non-ST elevated myocardial infarction) I21.4 Hypertensive emergency I16.1 Permanent atrial fibrillation I48.21 Paroxysmal atrial flutter I48.92 Raynaud disease I73.00 SIADH (syndrome of inappropriate ADH production) E22.2 Anxiety F41.9 COPD (chronic obstructive pulmonary disease) J44.9 Subclinical hypothyroidism E03.9
[2020-02-14] MEDS ORDERED: LOSARTAN POTASSIUM 50 MG TAB PO STA (12:10)
[2020-02-14] MEDS ORDERED: ACETAMINOPHEN 325 MG TAB PO PRN (12:56)
[2020-02-14] MEDS ORDERED: POLYETHYLENE (MIRALAX) 17 GM PACK PO PRN (12:56)
[2020-02-14] MEDS ORDERED: ALBUTEROL HFA 8 GM INHALER INH PRN (14:17)
[2020-02-14] MEDS ORDERED: ACETAMINOPHEN 500 MG TAB PO PRN (14:23)
[2020-02-14] MEDS ORDERED: HEPARIN IV BOLUS 3,000 UNITS in SYRINGE 0 ML IV ONE (14:45)
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
[2020-02-14] MEDS ORDERED: LORazepam 0.5 MG TAB PO PRN (16:48)
--- NOTE | 2020-02-14 18:57 | XCELERA ---
[id number]
[2020-02-14] MEDS: NITROGLYCERIN 2% OINTMENT 30GM TUBE EXT SCH ×2 (19:05→23:30)
[2020-02-14] MEDS: BUDESONIDE/FORMOTEROL FUMARATE 160/4.5 60 PUFFS/INHALER INH SCH (20:34)
[2020-02-14] MEDS: METOPROLOL TARTRATE 50 MG TAB PO SCH (20:35)
[2020-02-14] MEDS: MONTELUKAST SODIUM 10 MG TABLET PO SCH (20:35)
--- NOTE | 2020-02-14 22:25 | Electrocardiogram Report ---
Test Reason : Blood Pressure : / mmHG Vent. Rate : 091 BPM Atrial Rate : 081 BPM P-R Int : 000 ms QRS Dur : 076 ms QT Int : 354 ms P-R-T Axes : 000 -14 033 degrees QTc Int : 435 ms Atrial fibrillation Septal infarct , age undetermined Nonspecific ST abnormality Abnormal ECG When compared with ECG of 04-JUL-2014 06:25, Atrial fibrillation has replaced Sinus rhythm Septal infarct is now Present Confirmed by Cameron Hilliard ([id number]) on 02/14/2020 10:25:09 PM Referred By: REFERRED SELF Confirmed By:Cameron Hilliard
--- NOTE | 2020-02-14 22:38 | Electrocardiogram Report ---
Test Reason : Blood Pressure : / mmHG Vent. Rate : 094 BPM Atrial Rate : 220 BPM P-R Int : 000 ms QRS Dur : 080 ms QT Int : 382 ms P-R-T Axes : 000 -49 -10 degrees QTc Int : 477 ms Atrial fibrillation Left axis deviation Anteroseptal infarct (cited on or before 14-FEB-2020) Nonspecific T wave abnormality Abnormal ECG When compared with ECG of 14-FEB-2020 08:13, Nonspecific T wave abnormality, worse in Inferior leads Nonspecific T wave abnormality now evident in Lateral leads Confirmed by Cameron Hilliard ([id number]) on 02/14/2020 10:38:27 PM Referred By: REFERRED SELF Confirmed By:Cameron Hilliard
[2020-02-14] MEDS: ZOLPIDEM TARTRATE 5 MG TAB PO SCH (22:43)
[2020-02-14 23:03] LABS: Partial Thromboplastin Ratio 1.2; Partial Thromboplastin Time 32.2 Seconds (21.0-31.0)
[2020-02-14] MEDS: HEPARIN SODIUM/DEXTROSE 25,000 UNITS/500 ML BAG IV SCH (23:12)
[2020-02-14] MEDS ORDERED: HEPARIN IV BOLUS 3,000 UNITS in SYRINGE 0 ML IV SCH (23:30)
[2020-02-14] MEDS ORDERED: Heparin IV Low Dose WITH Bolus IV ONE (23:30)
[2020-02-15] MEDS: LEVOTHYROXINE SODIUM 25 MCG TABLET PO SCH (06:00)
[2020-02-15] MEDS: NITROGLYCERIN 2% OINTMENT 30GM TUBE EXT SCH ×3 (06:00→18:00)
[2020-02-15 06:06] LABS: Hematocrit (blood only) 37.9 % (37-47); Hemoglobin 13.2 g/dL (12.0-16.0); Mean Corpuscular Hemoglobin 32.5 pg (25-34); Mean Corpuscular Hgb Conc 34.8 g/dL (32-36); Mean Corpuscular Volume 93.3 fL (80-100); Mean Platelet Volume 10.8 fL (7.4-10.4); Platelet Count 241 K/uL (130-400); RDW Coefficient of Variation 12.8 % (11.5-14.5); RDW Standard Deviation 43.8 fL (36.4-46.3); Red Blood Count 4.06 M/uL (4.2-5.4); White Blood Count 8.43 K/uL (4.8-10.8)
[2020-02-15 06:40] LABS: BUN Creatinine Ratio 31.5 (10-20); Calcium 8.1 mg/dl (8.5-10.1); Creatinine Clr Calc Pharmacy 40.2 ml/min; Est GFR (African American) 88.9; Est GFR (Non-African American) 76.7; Potassium 3.9 mmol/L (3.5-5.1)
[2020-02-15 06:42] LABS: Partial Thromboplastin Ratio 2.3
[2020-02-15 06:44] LABS: Partial Thromboplastin Time 63.1 Seconds (21.0-31.0)
[2020-02-15 06:49] LABS: Troponin I 1.86 ng/ml (0-0.045)
[2020-02-15 06:51] LABS: Estimated Average Glucose 123 mg/dl; Hemoglobin A1C 5.9 % (4.5-5.6)
[2020-02-15] MEDS: BUDESONIDE/FORMOTEROL FUMARATE 160/4.5 60 PUFFS/INHALER INH SCH ×2 (07:28→21:53)
[2020-02-15] MEDS: ATORVASTATIN 40 MG TAB PO SCH (07:29)
[2020-02-15] MEDS: COZAAR PO SCH (07:29)
[2020-02-15] MEDS: ASPIRIN 81 MG ECTAB PO SCH (07:29)
[2020-02-15] MEDS: METOPROLOL TARTRATE 50 MG TAB PO SCH ×2 (07:30→21:51)
--- NOTE | 2020-02-15 08:12 | Pre Anesthesia Assessment ---
Date of Service February 15, 2020 Pre Sedation Assessment Vital Signs Temp Pulse Pulse Pulse Resp BP Pulse Ox 02/15/20 07:36 36.9 C 83 14 144/86 H 95 02/15/20 00:13 37 C 81 20 116/76 94 02/14/20 23:00 86 02/14/20 21:18 81 02/14/20 20:47 36.9 C 85 18 123/62 93 02/14/20 19:00 36.6 C 68 20 103/66 93 02/14/20 16:08 83 02/14/20 15:00 36.9 C 94 H 18 128/78 94 02/14/20 12:08 95 H 20 155/106 H 95 02/14/20 10:12 89 20 173/123 H 95 02/14/20 08:35 87 22 96 02/14/20 08:18 91 H 22 216/137 H 96 Cardiovascular + irregularly irregular Respiratory normal respiratory effort, lungs clear to auscultation Pre-Sedation Airway Assessment Smoking Status: Former smoker Mallampati Class: I ASA: ASA3 NPO Status Date of Last Intake of Fluids: 02/14/20 Time of Last Intake of Fluids: 22:00 Date of Last Intake of Solid Food: 02/14/20 Time of Last Intake of Solid Foods: 22:00 Procedure Planning Contraindications for Sedation: none Current Medications Reviewed: Yes Notes The planned sedation has been discussed with the patient. Informed Consent was obtained. I have identified the patient, determined the appropriateness of sedation and have assessed the patient immediately prior to the procedure. All medicine(s) and interventions are by my order.
--- NOTE | 2020-02-15 08:12 | Cardiology Progress Note ---
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 NSTEMI: Troponin peaked at 3.18. Apical wall motion abnormality however her most significant CAD was within the circumflex. There is potential that she could become ischemic from her left main coronary artery if it falls between the great vessels. She had not had angina until 84 years of age. She may also have become ischemic from her severe hypertension. Medical management for her underlying CAD. Cardiac rehabilitation. 2. Hypertensive emergency: Blood pressure has been well controlled today. She would like to take her losartan 50 mg twice daily. She is taking her home losartan while here. Continue beta-charlene. 3. 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 If this takes in inter arterial course, between pulmonary artery and aorta, ischemia could be induced with higher loads of exercise. This does not necessarily match her presentation as she was not strenuously exerting herself and she has not had an issue throughout the first 84 years of her life. Can consider outpatient CT angiogram to better evaluate if clinically appropriate. She did not seem overly enthusiastic about potentially undergoing CABG if found to have such findings. She indicated that she would prefer more of a conservative approach. This can be further discussed with her primary dielectric press operator, Dr. Bal, when she follows up in the office. 4. CAD: She did have severe CAD of a small caliber circumflex. Medical therapy recommended. Recommend high-intensity statin therapy and beta-charlene. Can consider nitrate therapy for symptoms. Her only chest pain occurred while severely hypertensive. Blood pressure control important. She was agreeable to take statin therapy after discussion. 5. Atrial fibrillation: Permanent atrial fibrillation. Heart rate is reasonably controlled. She is asymptomatic in this regard. Continue beta- charlene. Can resume Eliquis tomorrow in place of heparin. On heparin drip overnight. 6. Disposition: Recommend follow-up with Dr. Bal in 1-2 weeks. Patient care discussed with Dr. Campos of the primary hospitalist service. I will be away from the hospital tomorrow. Please call Dr. Altamirano for any questions or concerns as he will be materials and corrosion engineer. Admission and Anticipated Discharge Date Admission Date: February 14, 2020 Subjective She was seen earlier this morning. She underwent cardiac catheterization demonstrating anomalous left main coronary artery from the right coronary cusp. She has not had any further chest pain since admission. She denies shortness of breath, syncope, near-syncope, palpitations, edema, or bleeding. She was tolerating medications well. She would like to take her losartan b.i.d. dosing. When she was seen this morning, she was alone in her hospital room however her significant other, Handy, was personally updated in regards to her cardiac catheterization findings. Review of systems: As above. Physical Exam Physical Exam: Gen.: No acute distress. Alert and oriented. HEENT: Anicteric sclera. Neck: No JVD. Cardiac: No ventricular heave. Irregularly irregular. Normal heart rate. Normal S1-S2. No murmurs, rubs, or gallops. Pulmonary: Clear to auscultation bilaterally without wheezes, rales, or rhonchi. Abdomen: Soft, nontender, nondistended, with normoactive bowel sounds. No bruits noted. Extremities: 2+ radial pulses bilaterally. 2+ posterior tibialis pulses bilaterally. No edema or cyanosis. Psychiatric: Affect appears appropriate. Results & Data ([facility]) Vital Signs (Past 12 Hours) Vital Signs Temp Pulse Pulse Resp BP Pulse Ox 02/15/20 07:36 36.9 C 83 14 144/86 H 95 02/15/20 00:13 37 C 81 20 116/76 94 02/14/20 23:00 86 02/14/20 21:18 81 02/14/20 20:47 36.9 C 85 18 123/62 93 Laboratory Results Laboratory Results - last 24 hr 02/14/20 02/14/20 02/15/20 18:13 22:43 05:54 WBC RBC Hgb Hct MCV MCH MCHC RDW Std Deviation RDW Coeff of Geo Plt Count MPV APTT 32.2 H 63.1 H* PTT Ratio 1.2 2.3 Sodium Potassium Chloride Carbon Dioxide Anion Gap BUN Creatinine Est Cr Clr Drug Dosing Est GFR ( Amer) Est GFR (Non-Af Amer) BUN/Creatinine Ratio Glucose Estimat Average Glucose Hemoglobin A1c Calcium Troponin I 3.180 H* Triglycerides Cholesterol LDL Cholesterol, Calc VLDL Cholesterol, Calc HDL Cholesterol Cholesterol/HDL Ratio 02/15/20 02/15/20 02/15/20 05:54 05:54 05:54 WBC 8.43 RBC 4.06 L Hgb 13.2 Hct 37.9 MCV 93.3 MCH 32.5 MCHC 34.8 RDW Std Deviation 43.8 RDW Coeff of Geo 12.8 Plt Count 241 MPV 10.8 H APTT PTT Ratio Sodium 133 L Potassium 3.9 Chloride 99 Carbon Dioxide 27 Anion Gap 6.0 BUN 23 H Creatinine 0.73 Est Cr Clr Drug Dosing 40.2 Est GFR ( Amer) 88.9 Est GFR (Non-Af Amer) 76.7 BUN/Creatinine Ratio 31.5 H Glucose 98 Estimat Average Glucose 123 Hemoglobin A1c 5.9 H Calcium 8.1 L Troponin I 1.860 H* Triglycerides 50 Cholesterol 170 LDL Cholesterol, Calc 80 VLDL Cholesterol, Calc 10 HDL Cholesterol 80 Cholesterol/HDL Ratio 2 02/15/20 15:39 WBC RBC Hgb Hct MCV MCH MCHC RDW Std Deviation RDW Coeff of Geo Plt Count MPV APTT 30.5 PTT Ratio 1.1 Sodium Potassium Chloride Carbon Dioxide Anion Gap BUN Creatinine Est Cr Clr Drug Dosing Est GFR ( Amer) Est GFR (Non-Af Amer) BUN/Creatinine Ratio Glucose Estimat Average Glucose Hemoglobin A1c Calcium Troponin I Triglycerides Cholesterol LDL Cholesterol, Calc VLDL Cholesterol, Calc HDL Cholesterol Cholesterol/HDL Ratio Diagnostic Findings Telemetry personally Reviewed: Rate controlled atrial fibrillation. ECG personally reviewed: ECG 02/15/2020 at 6:50 a.m.: AFib 82 beats per minute. Diffuse deep T-wave inversions. Cardiac catheterization 02/15/2020: oronary angiography: 1. Anomalous left main coronary artery. 2. Left main coronary artery: The LMCA originates from the right coronary cusp, adjacent to the right coronary artery. It appears to have an anterior course. Mid LMCA luminal irregularities, 10%. Distal LMCA 20%. 3. Left anterior descending: LAD is a medium caliber vessel. The LAD extends towards the apex. D1 and D2. No significant CAD within the LAD system. 4. Circumflex: The circumflex is a small caliber vessel. Early distal circumflex 80%, followed by 40% stenosis. Small caliber OM1, OM 2, OM 3. HEATHER- 3 flow. 5. Right coronary artery: The RCA is large and dominant. Proximal RCA 50%. Mid RCA 30 to 40%. Distal RCA 10%. PDA, PL 1, PL 2 without significant CAD. Left heart catheterization: 1. Left ventriculography was not performed. 2. Normal LVEDP; 12 mmHg. 3. No aortic stenosis. Peak to peak gradient across the aortic valve was 0. Medications Administered Current Inpatient Medications Acetaminophen (Acetaminophen 325 Mg Tab) 650 mg PO Q4H PRN PRN Reason: Pain or Fever Stop: 03/15/20 12:55 Albuterol (Albuterol Hfa 8 Gm Inhaler) 2 puffs INH QID PRN PRN Reason: Shortness Of Breath Stop: 03/15/20 14:16 Aspirin (Aspirin 81 Mg Ectab) 81 mg PO QAM [facility] Stop: 03/16/20 08:59 Last Admin: 02/15/20 07:29 Dose: 81 mg Documented by: Atorvastatin Calcium (Atorvastatin 40 Mg Tab) 40 mg PO QAM [facility] Stop: 03/16/20 08:59 Last Admin: 02/15/20 07:29 Dose: 40 mg Documented by: Budesonide/Formoterol Fumarate (Budesonide/Formoterol Fumarate 160/4.5 60 Puffs/Inhaler) 2 puffs INH BID [facility] Stop: 03/15/20 20:59 Last Admin: 02/15/20 07:28 Dose: 2 puffs Documented by: Heparin Sodium/Dextrose (Heparin Sodium/Dextrose) 25,000 units in 500 mls @ 10 mls/hr IV .Q24H [facility]; Protocol Stop: 03/15/20 23:29 Last Titration: 02/15/20 17:42 Dose: 500 units/hr, 10 mls/hr Documented by: Sodium Chloride (Nss) 500 mls @ 999 mls/hr IV .Q31M PRN PRN Reason: IF SYS BP LESS THAN 90 Stop: 03/16/20 09:57 Levothyroxine Sodium (Levothyroxine Sodium 25 Mcg Tablet) 25 mcg PO DAILYBB [facility] Stop: 03/16/20 06:29 Last Admin: 02/15/20 06:00 Dose: 25 mcg Documented by: Lorazepam (Lorazepam 0.5 Mg Tab) 0.25 mg PO Q4H PRN PRN Reason: Anxiety Stop: 03/15/20 16:47 Last Admin: 02/14/20 16:57 Dose: 0.25 mg Documented by: Metoprolol Tartrate (Metoprolol Tartrate 50 Mg Tab) 75 mg PO BID [facility] Stop: 03/15/20 20:59 Last Admin: 02/15/20 07:30 Dose: 75 mg Documented by: Miscellaneous (Cozaar~Non-Formulary Medication) 1 ea PO DAILY [facility] Stop: 03/16/20 08:59 Last Admin: 02/15/20 07:29 Dose: 1 ea Documented by: Montelukast Sodium (Montelukast Sodium 10 Mg Tablet) 10 mg PO HS [facility] Stop: 03/16/20 20:59 Nitroglycerin (Nitroglycerin Sl 0.4 Mg/Tab Tab) 0.4 mg SL UD PRN PRN Reason: Chest Pain Stop: 03/15/20 12:55 Nitroglycerin (Nitroglycerin 2% Ointment 30gm Tube) 0.5 inch EXT Q6H [facility] Stop: 03/15/20 17:59 Last Admin: 02/15/20 18:00 Dose: 0.5 inch Documented by: Ondansetron HCl (Ondansetron Inj 2 Mg/Ml 2 Ml Vial) 4 mg IV Q6H PRN PRN Reason: Nausea Stop: 03/16/20 09:57 Polyethylene Glycol (Polyethylene (Miralax) 17 Gm Pack) 17 gm PO DAILY PRN PRN Reason: Constipation Stop: 03/15/20 12:55 Zolpidem Tartrate (Zolpidem Tartrate 5 Mg Tab) 5 mg PO HS [facility] Stop: 03/15/20 20:59 Last Admin: 02/14/20 22:43 Dose: 5 mg Documented by: PG Care Time/CCT Total # of Minutes Spent Total Time Spent with Patient: Total time spent is greater than 50% in coordination of care (as documented) at patient's floor/unit and/or counseling patient: Coding Level of Care Code 81298 Subseq Hosp Care Lvl 3 Diagnoses NSTEMI (non-ST elevated myocardial infarction) I21.4 Hypertensive emergency I16.1 Anomalous origin of left coronary artery Q24.5 CAD (coronary artery disease) I25.10 Permanent atrial fibrillation I48.21
[2020-02-15] MEDS ORDERED: HEPARIN (PORCINE) 1000 UNIT/ML 10 ML (CATH LAB USE ONLY) ONE (08:33)
[2020-02-15] MEDS ORDERED: MIDAZOLAM HCL 1 MG/ML 2ML VIAL ONE (08:33)
[2020-02-15] MEDS ORDERED: NiCARDipine HCL INJ 2.5 MG/ML 10 ML AMP ONE (08:33)
[2020-02-15] MEDS ORDERED: fentaNYL citrate 100 MCG/2 ML VIAL ONE (08:33)
[2020-02-15] MEDS ORDERED: NITROGLYCERIN/D5W 100MCG/ML 20ML SYR ONE (08:34)
--- NOTE | 2020-02-15 08:48 | Electrocardiogram Report ---
Test Reason : Blood Pressure : / mmHG Vent. Rate : 082 BPM Atrial Rate : 000 BPM P-R Int : 000 ms QRS Dur : 076 ms QT Int : 432 ms P-R-T Axes : 000 029 255 degrees QTc Int : 504 ms Atrial fibrillation Septal infarct (cited on or before 14-FEB-2020) Deep T-wave inversion in multiple leads , consider ischemia Abnormal ECG When compared with ECG of 14-FEB-2020 10:45, T-wave inversion in multiple leads now present Confirmed by Chris Sorensen ([id number]) on 02/15/2020 8:48:24 AM Referred By: REFERRED SELF Confirmed By:Chris Sorensen
[2020-02-15] MEDS ORDERED: NON-FORMULARY MEDICATION (Cholecalciferol (Vitamin D3) 2,000 UNITS) PO SCH (09:00)
[2020-02-15] MEDS ORDERED: NON-FORMULARY MEDICATION (Biotin 2,500 MCG) PO SCH (09:00)
[2020-02-15] MEDS ORDERED: OMEGA PO SCH (09:00)
[2020-02-15] MEDS ORDERED: GLUCOSAMINE SULFATE 500 MG CAP PO SCH (09:00)
[2020-02-15] MEDS ORDERED: NON-FORMULARY MEDICATION (Lutein 20 MG) PO SCH (09:00)
[2020-02-15] MEDS ORDERED: FATTY ACIDS PO SCH (09:00)
[2020-02-15] MEDS ORDERED: CALCIUM CARBONATE 500 MG PO SCH (09:00)
[2020-02-15] MEDS ORDERED: LOSARTAN POTASSIUM 50 MG TAB PO SCH (09:00)
[2020-02-15] MEDS ORDERED: Nursing to Pharmacy Communication SCH ×2 (09:30→11:45)
[2020-02-15] MEDS ORDERED: SODIUM CHLORIDE 0.9% 500 ML IV PRN (09:58)
[2020-02-15] MEDS ORDERED: ONDANSETRON INJ 2 MG/ML 2 ML VIAL IV PRN (09:58)
[2020-02-15] MEDS ORDERED: SODIUM CHLORIDE 0.9% 1000ML 500 ML IV SCH (10:00)
--- NOTE | 2020-02-15 10:09 | Cardiac Catheterization ---
[facility] Data: Tire Manager Cardiac Status Clinical evaluation leading to the procedure CAD Presenation: Non STEMI Anginal Classification: CCS III Heart Failure: No Cardiogenic Shock within 24 Hours: No Cardiac Arrest within 24 Hours: No Imaging Studies Past 6 Months: Yes Stress Studies Past 6 Months: No Standard Exercise Test: No Stress Echocardiogram: No Stress Testing w/SPECT MPI: No Cardiac CTA: No Coronary Anatomy Dominant: Right Left Ventricular Angiography EF (%): n/a Diagnostic Physicians Name: Cameron Hilliard MD Status: Elective Closure Device Percutaneous Entry Location: Femoral Closure Device: None-Manual Hold Recommendations: Medical Therapy and/or Counseling Cardiac Cath Procedure Full Procedure Date February 15, 2020 Pre-Procedure Diagnosis Pre-Procedure Diagnosis: Non STEMI AUC Score AUC Score: 9 Post-Procedure Diagnosis Post-Procedure Diagnosis: Severe CAD and Normal Intracardiac Pressures Procedure(s) Performed Procedure(s) Performed: Coronary Angiography, Left Heart Cath and Ultrasound Guided Vascular Access Golf Caddy Cameron Hilliard MD Supervisor Quality Control(s) Smuck Estimated Blood Loss Estimated Blood Loss: < 30 ml Medication(s) Medication(s): Fentanyl, Lidocaine 1% and Versed Summary of Findings Procedures: 1. Coronary angiography 2. Left heart catheterization 3. Ultrasound guidance for vascular access 4. Moderate sedation Coronary angiography: 1. Anomalous left main coronary artery. 2. Left main coronary artery: The LMCA originates from the right coronary cusp, adjacent to the right coronary artery. It appears to have an anterior course. Mid LMCA luminal irregularities, 10%. Distal LMCA 20%. 3. Left anterior descending: LAD is a medium caliber vessel. The LAD extends towards the apex. D1 and D2. No significant CAD within the LAD system. 3. Circumflex: The circumflex is a small caliber vessel. Early distal circumflex 80%, followed by 40% stenosis. Small caliber OM1, OM 2, OM 3. HEATHER- 3 flow. 4. Right coronary artery: The RCA is large and dominant. Proximal RCA 50%. Mid RCA 30 to 40%. Distal RCA 10%. PDA, PL 1, PL 2 without significant CAD. Left heart catheterization: 1. Left ventriculography was not performed. 2. Normal LVEDP; 12 mmHg. 3. No aortic stenosis. Peak to peak gradient across the aortic valve was 0. Ultrasound guidance for vascular access: 1. Right femoral artery was visualized with ultrasound. With 1 stick, access needle was successfully placed within the right femoral artery under ultrasound guidance. 5 Lebanese sheath was advanced over wire without known complication. Moderate sedation: 1. Sedation start time: 8:39 AM 2. Sedation end time: 9:45 AM Procedural notes: 1. Initial attempts at right radial arterial access were unsuccessful. The artery was cannulated with the access needle, but there was poor flow and the wire was unable to be advanced. Following this, there appeared to be spasm as her pulse diminished, despite normal blood pressure on the left arm. The decision is made to use right femoral artery. 2. The RCA was engaged with 5 Lebanese JR4 diagnostic catheter. 3. The LMCA was subselectively visualized with 5 Lebanese IVAN catheter. Attempts with AL-1, AR-2, AR-1 catheters were unsuccessful. Impression: 1. 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 2. Severe CAD involving small distal circumflex. 3. Otherwise, mild and moderate nonobstructive CAD. 4. Normal left-sided filling pressure. 5. No significant aortic stenosis. Plan: 1. Risk factor modification. 2. Medical therapy recommended. Hemodynamics Rest Ao:: 118/64 Final Ao: 147/77 LV: 123/56 Recommendations Recommendations: Medical Therapy and/or Counseling Specimens Specimens: None Radiation Exposure (mGy) 630 mGy. Fluoro time 28 min. Contrast (mls) 85 ml Procedural Complication(s) None Disposition Tire Manager Holding/Recovery I attest to the content of the Intraoperative Record and any orders documented therein. Any exceptions are noted below. [facility] Card Cath Procedure Codes Cardiac Catheterization Procedure 1: Cardiovascular Cath Procedures: 16712 Coronaries and LHC (+/-LV) Therapeutic Services & Ancillary Proc Procedure 1: Cardiovascular Tx and Anc Procedures: 10902 Ultrasonic Guidance Vascular Access Moderate Sedation Procedure 1: Sedation/Anesthesia: 92528 Mod Sedation by the same physician;Init15 Min Child Age 5 & Up Procedure 2: Sedation/Anesthesia: 15653 Mod Sedation by the same physician; Ea [id number] Minutes Procedure 3: Sedation/Anesthesia: 06912 Mod Sedation by the same physician; Ea [id number] Minutes Procedure 4: Sedation/Anesthesia: 25172 Mod Sedation by the same physician; Ea Additio nal15 Minutes PG Care Time/CCT Total # of Minutes Spent Total Time Spent with Patient: Total time spent is greater than 50% in coordination of care (as documented) at patient's floor/unit and/or counseling patient:
[2020-02-15 16:00] LABS: Partial Thromboplastin Ratio 1.1; Partial Thromboplastin Time 30.5 Seconds (21.0-31.0)
--- NOTE | 2020-02-15 16:08 | Hospitalist Progress Note ---
Date of Service February 15, 2020 Assessment & Plan (1) Chest pain: due to NSTEMI with acute rise and fall of troponin wall motion changes on echo, see below (2) NSTEMI (non-ST elevated myocardial infarction): Chest pain-free after nitro patch placed, no chest pain today ASA 324mg PO given in ER. Continue 81mg PO daily. continue heparin drip today until tomorrow morning troponin up to 3.1 and then down to 1.8 echo with large area of apical akinesis, EF 45% left heart cath on 02/14 with coronary anomaly, left main arising from right coronary cusp moderate to severe disease, most severe in left circumflex, vessel too small for stent discussed with Dr. Hilliard, medical management of her disease is recommended aspirin 81mg daily, Lipitor 40mg daily, Lopressor 75mg BID nitro paste q6 discussed with cardiology tomorrow, should be stable for discharge (3) Hypertensive emergency: could have contributed to NSTEMI now BP low normal on nitro paste will continue lopressor and losartan on discharge (4) Permanent atrial fibrillation: Continue metoprolol tartrate 75 mg p.o. twice daily for rate control. Switch Eliquis for heparin IV drip as above resume Eliquis in the morning (5) Paroxysmal atrial flutter: As above for atrial fibrillation (6) Raynaud disease: Previously did poorly on amlodipine with increased swelling. Consider lower dose amlodipine vs ISMN While in hospital use heating pad/blankets to avoid vasoconstriction. 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 Continue home maintenance inhalers. (10) Subclinical hypothyroidism: Continue levothyroxine 25 mcg PO daily Admission and Anticipated Discharge Date Admission Date: February 14, 2020 Subjective patient laying flat after her heart cath this morning discussed with Dr Hilliard, difficult case, he had to go through right femoral artery patient has a rare anomaly with her coronary anatomy, left main coronary arises from right coronary she had severe disease in her circumflex but it was small vessel, could not stent and it did not correlate with her wall motion changes will treat conservatively with heparin drip today and tonight patient felt fine, no chest pain, her only concern was when could she eat and when could she get out of bed to urinate, tired of using bed echavarria reviewed labs, reviewed chart from yesterday discussed taking statin, she says her HDL has always been high and her LDL has been low explained that it can help stabilize plaques, she is unsure if she wants to take it on discharge Review of Systems Review of Systems: All systems reviewed & are unremarkable except as noted in Subjective Physical Exam Constitutional: well developed, + thin and comfortable; no acute distress Eyes: PERRL, conjunctivae normal, anicteric sclerae ENMT: external ear and nose normal, oropharynx normal Neck: trachea midline, no thyromegaly Respiratory: normal respiratory effort, lungs clear to auscultation Cardiovascular: RRR, no murmur, no edema Gastrointestinal (Abdomen): normal bowel sounds, soft, nontender, no hepatosplenomegaly Musculoskeletal: no cyanosis or clubbing, extremities motor strength 5/5 Skin: no rashes, warm and dry Neurologic: patellar DTR's 2+ bilat, sensation intact and PERRL, EOMI, accommodation nl, no face palsy, no dysarthria Psychiatric: A+Ox3, euthymic affect Lymphatic: no cervical or axillary lymphadenopathy Results & Data Results & Data ([facility]) Vital Signs (Past 12 Hours) Vital Signs Temp Pulse Pulse Resp BP Pulse Ox 02/15/20 15:35 36.7 C 80 18 135/93 96 02/15/20 13:12 81 16 125/89 92 02/15/20 12:12 79 16 147/83 H 93 02/15/20 11:42 82 16 136/77 95 02/15/20 11:12 76 16 121/73 93 02/15/20 10:57 74 16 147/92 H 94 02/15/20 10:42 77 16 133/84 92 02/15/20 10:25 74 20 144/89 H 94 02/15/20 10:10 78 20 138/91 95 02/15/20 07:36 36.9 C 83 14 144/86 H 95 Laboratory Results Laboratory Results - last 24 hr 02/14/20 02/14/20 02/15/20 18:13 22:43 05:54 WBC RBC Hgb Hct MCV MCH MCHC RDW Std Deviation RDW Coeff of Geo Plt Count MPV APTT 32.2 H 63.1 H* PTT Ratio 1.2 2.3 Sodium Potassium Chloride Carbon Dioxide Anion Gap BUN Creatinine Est Cr Clr Drug Dosing Est GFR ( Amer) Est GFR (Non-Af Amer) BUN/Creatinine Ratio Glucose Estimat Average Glucose Hemoglobin A1c Calcium Troponin I 3.180 H* Triglycerides Cholesterol LDL Cholesterol, Calc VLDL Cholesterol, Calc HDL Cholesterol Cholesterol/HDL Ratio 02/15/20 02/15/20 02/15/20 05:54 05:54 05:54 WBC 8.43 RBC 4.06 L Hgb 13.2 Hct 37.9 MCV 93.3 MCH 32.5 MCHC 34.8 RDW Std Deviation 43.8 RDW Coeff of Geo 12.8 Plt Count 241 MPV 10.8 H APTT PTT Ratio Sodium 133 L Potassium 3.9 Chloride 99 Carbon Dioxide 27 Anion Gap 6.0 BUN 23 H Creatinine 0.73 Est Cr Clr Drug Dosing 40.2 Est GFR ( Amer) 88.9 Est GFR (Non-Af Amer) 76.7 BUN/Creatinine Ratio 31.5 H Glucose 98 Estimat Average Glucose 123 Hemoglobin A1c 5.9 H Calcium 8.1 L Troponin I 1.860 H* Triglycerides 50 Cholesterol 170 LDL Cholesterol, Calc 80 VLDL Cholesterol, Calc 10 HDL Cholesterol 80 Cholesterol/HDL Ratio 2 02/15/20 15:39 WBC RBC Hgb Hct MCV MCH MCHC RDW Std Deviation RDW Coeff of Geo Plt Count MPV APTT 30.5 PTT Ratio 1.1 Sodium Potassium Chloride Carbon Dioxide Anion Gap BUN Creatinine Est Cr Clr Drug Dosing Est GFR ( Amer) Est GFR (Non-Af Amer) BUN/Creatinine Ratio Glucose Estimat Average Glucose Hemoglobin A1c Calcium Troponin I Triglycerides Cholesterol LDL Cholesterol, Calc VLDL Cholesterol, Calc HDL Cholesterol Cholesterol/HDL Ratio Medications Administered Current Inpatient Medications Acetaminophen (Acetaminophen 325 Mg Tab) 650 mg PO Q4H PRN PRN Reason: Pain or Fever Stop: 03/15/20 12:55 Albuterol (Albuterol Hfa 8 Gm Inhaler) 2 puffs INH QID PRN PRN Reason: Shortness Of Breath Stop: 03/15/20 14:16 Aspirin (Aspirin 81 Mg Ectab) [facility] [place] Stop: 03/16/20 08:59 Last Admin: 02/15/20 07:29 Dose: 81 mg Documented by: Atorvastatin Calcium (Atorvastatin 40 Mg Tab) 40 mg PO QAM [facility] Stop: 03/16/20 08:59 Last Admin: 02/15/20 07:29 Dose: 40 mg Documented by: Budesonide/Formoterol Fumarate (Budesonide/Formoterol Fumarate 160/4.5 60 Puffs/Inhaler) 2 puffs INH BID GEOFFREY Stop: 03/15/20 20:59 Last Admin: 02/15/20 07:28 Dose: 2 puffs Documented by: Heparin Sodium/Dextrose (Heparin Sodium/Dextrose) 25,000 units in 500 mls @ 10 mls/hr IV .Q24H GEOFFREY; Protocol Stop: 03/15/20 23:29 Last Titration: 02/15/20 08:00 Dose: 0 units/hr, 0 mls/hr Documented by: Sodium Chloride (Nss) 500 mls @ 999 mls/hr IV .Q31M PRN PRN Reason: IF SYS BP LESS THAN 90 Stop: 03/16/20 09:57 Levothyroxine Sodium (Levothyroxine Sodium 25 Mcg Tablet) 25 mcg PO DAILYBB GEOFFREY Stop: 03/16/20 06:29 Last Admin: 02/15/20 06:00 Dose: 25 mcg Documented by: Lorazepam (Lorazepam 0.5 Mg Tab) 0.25 mg PO Q4H PRN PRN Reason: Anxiety Stop: 03/15/20 16:47 Last Admin: 02/14/20 16:57 Dose: 0.25 mg Documented by: Metoprolol Tartrate (Metoprolol Tartrate 50 Mg Tab) 75 mg PO BID GEOFFREY Stop: 03/15/20 20:59 Last Admin: 02/15/20 07:30 Dose: 75 mg Documented by: Miscellaneous (Cozaar~Non-Formulary Medication) 1 ea PO DAILY GEOFFREY Stop: 03/16/20 08:59 Last Admin: 02/15/20 07:29 Dose: 1 ea Documented by: Montelukast Sodium (Montelukast Sodium 10 Mg Tablet) 10 mg PO HS [facility] Stop: 03/16/20 20:59 Nitroglycerin (Nitroglycerin Sl 0.4 Mg/Tab Tab) 0.4 mg SL UD PRN PRN Reason: Chest Pain Stop: 03/15/20 12:55 Nitroglycerin (Nitroglycerin 2% Ointment 30gm Tube) 0.5 inch EXT Q6H GEOFFREY Stop: 03/15/20 17:59 Last Admin: 02/15/20 12:15 Dose: 0.5 inch Documented by: Ondansetron HCl (Ondansetron Inj 2 Mg/Ml 2 Ml Vial) 4 mg IV Q6H PRN PRN Reason: Nausea Stop: 03/16/20 09:57 Polyethylene Glycol (Polyethylene (Miralax) 17 Gm Pack) 17 gm PO DAILY PRN PRN Reason: Constipation Stop: 03/15/20 12:55 Zolpidem Tartrate (Zolpidem Tartrate 5 Mg Tab) 5 mg PO HS GEOFFREY Stop: 03/15/20 20:59 Last Admin: 02/14/20 22:43 Dose: 5 mg Documented by: PG Care Time/CCT Total # of Minutes Spent Total Time Spent with Patient: Total time spent is greater than 50% in coordination of care (as documented) at patient's floor/unit and/or counseling patient: Coding Level of Care Code 76332 Subseq Hosp Care Lvl 3 Diagnoses Chest pain R07.9 NSTEMI (non-ST elevated myocardial infarction) I21.4 Hypertensive emergency I16.1 Permanent atrial fibrillation I48.21 Paroxysmal atrial flutter I48.92 Raynaud disease I73.00 SIADH (syndrome of inappropriate ADH production) E22.2 Anxiety F41.9 COPD (chronic obstructive pulmonary disease) J44.9 Subclinical hypothyroidism E03.9
[2020-02-15] MEDS ORDERED: MONTELUKAST SODIUM 10 MG TABLET PO SCH (21:00)
[2020-02-15] MEDS: ZOLPIDEM TARTRATE 5 MG TAB PO SCH (22:03)
[2020-02-16 00:15] LABS: Partial Thromboplastin Ratio 1.4; Partial Thromboplastin Time 40.2 Seconds (21.0-31.0)
[2020-02-16] MEDS ORDERED: HEPARIN IV BOLUS 3,000 UNITS in SYRINGE 0 ML IV STA (00:57)
[2020-02-16] MEDS: HEPARIN SODIUM/DEXTROSE 25,000 UNITS/500 ML BAG IV SCH (01:01)
[2020-02-16] MEDS: NITROGLYCERIN 2% OINTMENT 30GM TUBE EXT SCH ×3 (01:04→10:52)
[2020-02-16] MEDS: MONTELUKAST SODIUM 10 MG TABLET PO SCH (01:26)
[2020-02-16] MEDS: LEVOTHYROXINE SODIUM 25 MCG TABLET PO SCH (05:55)
[2020-02-16 07:47] LABS: Partial Thromboplastin Ratio 3.2
[2020-02-16 07:55] LABS: Partial Thromboplastin Time 88.7 Seconds (21.0-31.0)
[2020-02-16] MEDS: ASPIRIN 81 MG ECTAB PO SCH (08:31)
[2020-02-16] MEDS: ATORVASTATIN 40 MG TAB PO SCH (08:31)
[2020-02-16] MEDS: METOPROLOL TARTRATE 50 MG TAB PO SCH (08:32)
[2020-02-16] MEDS: COZAAR PO SCH (08:32)
[2020-02-16] MEDS: BUDESONIDE/FORMOTEROL FUMARATE 160/4.5 60 PUFFS/INHALER INH SCH (08:35)
[2020-02-16] MEDS ORDERED: APIXABAN 5 MG TABLET PO SCH (09:30)
--- NOTE | 2020-02-16 11:38 | Cardiology Progress Note ---
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 NSTEMI: No obvious acute coronary syndrome. No intervention performed at the time of catheterization. Continue aggressive blood pressure control and risk factor modification. She will continue apixaban and 2. Hypertensive emergency: Blood pressure has been well controlled today. She has some questions regarding the usage of nitroglycerin on a p.r.n. basis. I suggested for symptoms of chest discomfort and severely elevated blood pressures this would be appropriate. Additionally, she had some questions about metoprolol and its poor effect on her blood pressure. Carvedilol may be a reasonable alternative. 3. 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 4. CAD: She did have severe CAD of a small caliber circumflex. Medical therapy recommended. Recommend high-intensity statin therapy and beta-charlene. Can consider nitrate therapy for symptoms. Her only chest pain occurred while severely hypertensive. Blood pressure control important. She was agreeable to take statin therapy after discussion. 5. Atrial fibrillation: Permanent atrial fibrillation. Adequate rate control. No symptoms. Continue systemic anticoagulation with Eliquis. 6. Disposition: She appears safe for discharge. 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 Bal in approximately 10 days. Admission and Anticipated Discharge Date Admission Date: February 14, 2020 Subjective This morning the patient claims to be feeling well. She is ambulatory around her room without symptoms of chest discomfort, dizziness or significant breathing difficulty. She had 15 separate written questions regarding her studies performed in the hospital, her blood pressure and future appointments. Review of Systems Review of Systems: Per HPI Physical Exam Physical Exam: Gen.: No acute distress. Alert and oriented. She answers all questions appropriately. HEENT: Anicteric sclera. Neck: No JVD. Cardiac: No ventricular heave. Irregularly irregular. Normal heart rate. Normal S1-S2. No murmurs, rubs, or gallops. Pulmonary: Clear to auscultation bilaterally without wheezes, rales, or rhonchi. Abdomen: Soft, nontender, nondistended, with normoactive bowel sounds. No bruits noted. Extremities: Palpable radial pulses with the right radial pulse somewhat weak. Good perfusion of the right hand. 2+ posterior tibialis pulses bilaterally. No edema or cyanosis. Access site in the right groin without hematoma. No pain or significant ecchymosis. No bruit on auscultation. Psychiatric: Affect appears appropriate. Results & Data ([facility]) Vital Signs (Past 12 Hours) Vital Signs Temp Pulse Pulse Resp BP Pulse Ox 02/16/20 07:05 36.8 C 86 19 149/96 H 97 02/16/20 04:17 36.7 C 86 18 109/62 93 02/16/20 00:00 83 02/15/20 23:47 36.6 C 75 18 101/55 L 92 Laboratory Results Abnormal Lab Results 02/15/20 02/15/20 02/16/20 15:39 23:48 07:14 APTT 30.5 40.2 H 88.7 H* PTT Ratio 1.1 1.4 3.2 Diagnostic Findings Cardiac catheterization performed yesterday revealed anomalous origin of the left main coronary artery. This arose from the right coronary cusp. She had approximately 80% distal circumflex stenosis and nonobstructive disease in the remaining vessels. No intervention performed. PG Care Time/CCT Total # of Minutes Spent Total Time Spent with Patient: Total time spent is greater than 50% in coordin ation of care (as documented) at patient's floor/unit and/or counseling patient: Coding Level of Care Code 86746 Subseq Hosp Care Lvl 3 Diagnoses NSTEMI (non-ST elevated myocardial infarction) I21.4 Hypertensive emergency I16.1 Anomalous origin of left coronary artery Q24.5 CAD (coronary artery disease) I25.10 Permanent atrial fibrillation I48.21
--- NOTE | 2020-02-16 13:08 | Discharge Summary ---
Date of Service February 16, 2020 Admission HPI Per Admitting Provider Annemarie Scanlon is an 84 year old female who presents to the ER with chest pain. Episode started this morning around 6:30am. Associated elevated sBP at home > 200, HR in 80s. Associated nausea, no SOB or diaphoresis. Severity 5/10 when it first came on. Substernal. No radiation. Non-exertional, non pleuritic. Fells like someone sitting on her chest. She tried her albuterol inhaler with not effect. She called her [facility] PCP answering service who advised her to come to the ER. At it's worse while coming to the ER by car. Relieved with nitroglycerin given in the ER. Current pain 0/10 with 0.5 inch nitro patch on. In the ER she was noticed to be hypertensive 216/137 maximum. She initially did not take her usual antihypertensives this morning, but took her home medications while in the ER around 11:30am. She does report having chest pains in the past related to her elevated blood pressure, however her pain today was more severe. She has known labile blood pressures which appear to be related to whenever she gets cold which exacerbated her Raynaud's disease. For example her blood pressure is more elevated in the mornings after being colder at night and in the winter. Last night she slept outside in a tent likely leading to her current hypertensive urgency/emergency. Principal Diagnosis Non ST elevation AR Discharge Exam Constitutional WD/WN, vitals as above Respiratory normal respiratory effort, lungs clear to auscultation Cardiovascular RRR, no murmur, no edema Gastrointestinal (Abdomen) normal bowel sounds, soft, nontender, no hepatosplenomegaly Musculoskeletal no cyanosis or clubbing, extremities motor strength 5/5 Skin no rashes, warm and dry Neurologic moves all extremities and awake Psychiatric A+Ox3, euthymic affect Discharge Data Allergies Allergy/AdvReac Type Severity Reaction Status Date / Time clomipramine AdvReac Intermediate FLU-LIKE Verified 02/14/20 08:53 SYMPTOMS Consultations 02/14/20 10:18 ED Decision to Admit Stat 02/14/20 14:17 Consult Cardiology Routine 02/15/20 09:58 Consult Cardiac Rehabilitation Routine Procedures Performed Operation Date: 02/15/20 08:30 Actual Procedures p Cath, Left with Cors and Vent - Cameron Hilliard MD s Cineradiography w/Routine Exam - Jacobo Acevedo MD Ordered Studies 02/15/20 08:06 CL Cath Imgs for PACS use only Stat Hospital Course (1) Chest pain: due to NSTEMI with acute rise and fall of troponin wall motion changes on echo, see below (2) NSTEMI (non-ST elevated myocardial infarction): Chest pain-free after nitro patch placed, no chest pain over radha last two days ASA 324mg PO given in ER. Continue 81mg PO daily. heparin gtt continued until this morning - discontinued and Eliquis restarted troponin up to 3.1 and then down to 1.8 echo with large area of apical akinesis, EF 45% left heart cath on 02/14 with coronary anomaly, left main arising from right coronary cusp moderate to severe disease, most severe in left circumflex, vessel too small for stent discussed with Dr. Hilliard, medical management of her disease is recommended aspirin 81mg daily, Lipitor 40mg daily, Lopressor 75mg BID nitro paste q6 discussed with cardiology - ok for discharge from their standpoint (3) Hypertensive emergency: could have contributed to NSTEMI now BPs acceptable will continue lopressor and losartan on discharge (4) Permanent atrial fibrillation: Continue metoprolol tartrate 75 mg p.o. twice daily for rate control. Switched to Eliquis for heparin IV drip as above (5) Paroxysmal atrial flutter: As above for atrial fibrillation (6) Raynaud disease: Previously did poorly on amlodipine with increased swelling. Consider lower dose amlodipine vs ISMN While in hospital use heating pad/blankets to avoid vasoconstriction. 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 Continue home maintenance inhalers. (10) Subclinical hypothyroidism: Continue levothyroxine 25 mcg PO daily Total Time Total Time Spent Total Time Spent (In Minutes): greater than 30 minutes Discharge Plan Discharge Items Patient Disposition: Home - Self-Care Reason For Visit: CHEST PAIN RULE OUT AR Discharge Diagnosis: NSTEMI Hypertension Severe coronary disease Left main coronary anomaly Ischemic cardiomyopathy Condition on Discharge: Good Activity: Per Instructions section Lifting: None Bathing: No limitations Exercise/Sports: Gradually increase as tolerated Driving/Machine Use: Resume 3 days after discharge Weightbearing: Full weightbearing Non-emergency contact: Primary Care Provider and Sponge [employer] Call non-emergency contact if: you have any medication questions and your symptoms worsen Follow-up/Referrals: Irasema Madera CRNP [Primary Care Provider] - (one week) Duglas Bal MD [Physician] - (1-2 weeks) Cameron Hilliard MD [Physician] - (Follow up with Dr. Bal in 1-2 weeks) Diet: Heart Healthy Addtl Attending Provider Instructions: Medications: - ASPIRIN: 81mg daily - LIPITOR: 40mg daily, purpose is to stabilize plaque in coronary arteries NSTEMI: chest pain with rise and fall in heart enzymes heart cath with left main coronary anomaly, arising from right coronary cusp severe disease in left circumflex but vessel too small for stent cardiology recommends medical management treat with aspirin, Lipitor, Lopressor, Losartan take Nitro as needed for chest pain ACTIVITY RECOMMENDATIONS: It is common to feel weak and fatigue for a few days. * Do not drive or operate any motorized equipment for the next three days. * Limit stair usage (2 or 3 trips a day only) for the next three days. * Do not lift anything heavier than 10 pounds for the next three days. * Do not engage in vigorous exercise or any sports for the next five days. * You may shower the day after your procedure, but do not immerse the area for three days. Cleanse the site gently with soap and water. SPECIAL CARE INSTRUCTIONS: * You may replace the pressure dressing or band-aid the morning after the procedure. * After your procedure, it is normal to have a small bruise or small lump at the site. Examine your site daily for any change in the bruise or lump, redness, swelling, drainage or numbness. Notify your doctor if any change. BLEEDING: * If there is a small amount of bleeding at the site, lie down and apply firm pressure with a clean cloth for ten minutes. When the bleeding stops, lie quietly keeping the procedure limb straight for six hours. Notify your doctor as soon as possible. * If the bleeding does not stop after ten minutes or if there is a large amount of bleeding or spurting, call 911 immediately. Continue to lie down and hold firm pressure until help arrives. SKIN IRRITATION: * You may experience some redness and/or swelling in the area where radiation was administered. If any skin irritation occurs, please contact your family physician. FOLLOW UP VISIT: 1. Follow up with Dr. Bal in 1-2 weeks. Pending Studies at Discharge: No Stand-Alone Forms: My [facility], Smoking Cessation Medications and DC Order Prescriptions: New nitroglycerin [Nitrostat] 0.4 mg Tablet, Sublingual 0.4 mg sublingual UD PRN (Reason: chest pain) 30 Days Qty: 60 RF: 0 atorvastatin 40 mg Tablet 40 mg PO QAM 30 Days Qty: 30 RF: 3 aspirin 81 mg Tablet,Delayed Release (Dr/Ec) 81 mg PO QAM 30 Days Qty: 30 RF: 0 Continued cholecalciferol (vitamin D3) 2,000 unit capsule 2,000 units PO DAILY RF: 0 lutein 20 mg capsule 20 mg PO DAILY RF: 0 metoprolol tartrate 50 mg tablet 75 mg PO BID Qty: 90 RF: 11 Eliquis 5 mg tablet 5 mg PO BID Qty: 60 RF: 11 montelukast 10 mg tablet 10 mg PO DAILY Qty: 90 RF: 1 zolpidem 5 mg tablet 5 mg PO DAILY Qty: 30 RF: 0 losartan 100 mg tablet 100 mg PO DAILY Qty: 90 RF: 3 levothyroxine 25 mcg tablet 25 mcg PO DAILY Qty: 90 RF: 3 albuterol sulfate [ProAir HFA] 90 mcg/actuation HFA aerosol inhaler 2 puffs inhalation QID PRN (Reason: Shortness Of Breath) RF: 0 calcium carbonate [Calcium 500] 500 mg calcium (1,250 mg) tablet,chewable 500 mg PO DAILY RF: 0 omega-3 fatty acids [Fish Oil Concentrate] 1,000 mg capsule 1,000 mg PO DAILY RF: 0 budesonide-formoterol [Symbicort] 160-4.5 mcg/actuation HFA aerosol inhaler 2 puffs inhalation BID RF: 0 acetaminophen 500 mg capsule 500 mg PO BID PRN (Reason: Pain) RF: 0 biotin 2,500 mcg capsule 2,500 mcg PO DAILY RF: 0 glucosamine sulfate 500 mg capsule 500 mg PO DAILY RF: 0 Discharge Orders: Discharge Order (Routine); Ordered 02/16/20 Ordered By: Annemarie Cintron Admission Data Admit Date/Time: 02/14/20 20:44 Attending Provider: Parrish Campos Admit Provider: Bertin Chavarria Primary Care Provider: Irasema Madera Other Providers: Bertin Chavarria ; Cameron Hilliard Other Interventions: Discharge Summary Assessment (RN) Last Done: 02/16/20 12:09 Supervising Physician Co-Signing Physician Notes Patient seen and examined within 24 hours of discharge. I agree with the discharge summary by Annemarie MCCLELLAN. I have reviewed the chart including labs, imaging and plans for discharge. patient completed her heparin drip will continue medical management of her CAD - NSTEMI: left heart cath with left main anomaly, arising form right coronary cusp left circumflex, small vessel, severe disease, cannot place stent continue aspirin, Lipitor, Lopressor could add lisinopril or Imdur if BP is elevated on follow up Coding Level of Care Code D/C Day Management >30 mins Diagnoses Chest pain R07.9 NSTEMI (non-ST elevated myocardial infarction) I21.4 Hypertensive emergency I16.1 Permanent atrial fibrillation I48.21 Paroxysmal atrial flutter I48.92 Raynaud disease I73.00 SIADH (syndrome of inappropriate ADH production) E22.2 Anxiety F41.9 COPD (chronic obstructive pulmonary disease) J44.9 Subclinical hypothyroidism E03.9
[2020-02-16 13:49] LABS: Partial Thromboplastin Ratio 1.1; Partial Thromboplastin Time 31.6 Seconds (21.0-31.0)
[2020-02-16] MEDS ORDERED: ATORVASTATIN 40 MG TAB PO SCH (14:45)
[2020-02-16] MEDS ORDERED: Nursing to Pharmacy Communication SCH (14:45)
== END 2020-02-16 14:51 | disposition home or self-care (01) | DRG 281 ==
LOC: ED 08:03 → 2N 08:03 → 2E 20:43 → SUATTDRO 20:44

== ENCOUNTER 2022-05-29 09:55 | Inpatient (IN) ==
[2022-05-29] MEDS ORDERED: LEVALBUTEROL HCL 0.63 MG/3 ML NEB NEB STA (10:33)
[2022-05-29] MEDS ORDERED: methylPREDNISolone 125 MG/2 ML VIAL IV STA (10:33)
[2022-05-29] MEDS ORDERED: STAT IV Infusion **Titration per Protocol STA (10:33)
[2022-05-29] MEDS ORDERED: dilTIAZem HCL 125 MG in DEXTROSE 5% 100 ML IV SCH (10:45)
[2022-05-29 10:47] LABS: Basophils # (auto) 0.02 K/uL (0-0.2); Basophils % (auto) 0.1 %; Eosinophils # (auto) 0.01 K/uL (0-0.50); Eosinophils % (auto) 0.1 %; Hematocrit (blood only) 38.1 % (34.1-44.9); Hemoglobin 13.2 g/dl (12.0-16.0); Immature Granulocytes # (auto) 0.07 K/uL (0.00-0.02); Immature Granulocytes % (auto) 0.5 %; Lymphocytes # (auto) 1.46 K/uL (1.2-3.4); Lymphocytes % (auto) 9.6 %; Mean Corpuscular Hemoglobin 33.7 pg (25.0-34.0); Mean Corpuscular Hgb Conc 34.6 g/dL (32.0-36.0); Mean Corpuscular Volume 97.2 fL (80.0-100.0); Mean Platelet Volume 11.1 fL (9.4-12.3); Monocytes # (auto) 1.18 K/uL (0.24-0.82); Monocytes % (auto) 7.8 %; Neutrophils # (auto) 12.42 K/uL (1.4-6.5); Neutrophils % (auto) 81.9 %; Platelet Count 243 K/uL (130-400); RDW Coefficient of Variation 12.2 % (11.5-14.5); RDW Standard Deviation 43.7 fL (36.4-46.3); Red Blood Count 3.92 M/uL (3.93-5.22); White Blood Count 15.16 K/ul (4.8-10.8)
--- NOTE | 2022-05-29 10:50 | XRay Report ---
XR chest 1V portable CLINICAL HISTORY: Dyspnea COMPARISON STUDY: Chest radiograph February 14, 2020. FINDINGS: Degenerative changes of the glenohumeral joints are incidentally noted. There is no pneumot horax. Trace bilateral pleural effusions are present. There is mild left basilar opacity. Mild inters titial thickening is present. Cardiomediastinal silhouette is stable. IMPRESSION: 1. Findings suggestive of mild interstitial pulmonary edema. Trace bilateral pleural effusions. 2. Mild left basilar opacity which likely reflects atelectasis. An infectious process could appear si milar. Radiographic follow-up is recommended. ACT 112: Negative or not required by law. Electronically signed by: Reginaldo Barnes M.D. 05/29/2022 10:48 AM
[2022-05-29] MEDS ORDERED: DOXYCYCLINE HYCLATE 100 MG in DEXTROSE 5% 100 ML IV STA (10:55)
[2022-05-29] MEDS ORDERED: cefTRIAXone SODIUM 2,000 MG/70 ML BAG IV STA (10:55)
[2022-05-29] MEDS ORDERED: LEVALBUTEROL 1.25MG/0.5ML NEB ONE (10:58)
[2022-05-29 10:59] LABS: Appearance Urine Clear (Clear); Bacteria Urine Automated Negative (Negative); Bilirubin Urine Negative (Negative); Blood Urine 2+ (Negative); Color Urine Yellow; Glucose Urine UA Negative (Negative); Ketones Urine Negative (Negative); Leukocyte Esterase Urine Negative (Negative); Nitrite Urine Negative (Negative); Protein Urine 2+ (Negative); RBC Urine Automated >30 /hpf (0-4); Specific Gravity Urine 1.013 (1.000-1.030); Urobilinogen Urine Negative (Negative)
[2022-05-29 11:10] LABS: Albumin Level 3.5 gm/dl (3.4-5.0); BUN Creatinine Ratio 31.9 (10-20); Bilirubin,Total 0.6 mg/dl (0.2-1.0); Calcium 8.6 mg/dl (8.5-10.1); Creatinine Clr Calc Pharmacy 63.6 ml/min; Est GFR (African American) 105.1 ml/min; Est GFR (Non-African American) 90.7 ml/min; Globulin 3.5 gm/dl (2.5-4.0); Magnesium 1.7 mg/dl (1.7-2.4); Potassium 2.8 mmol/L (3.5-5.1)
[2022-05-29 11:14] LABS: Troponin I High Sensitivity 15.6 pg/ml (0-14)
[2022-05-29] MEDS ORDERED: MAGNESIUM SULFATE / D5W 1 GM/100 ML BAG IV ONE (11:26)
--- NOTE | 2022-05-29 11:44 | Emergency Department Note ---
Impression & Plan Acute on chronic respiratory failure with hypoxemia, Left lower lobe pulmonary infiltrate, Atrial fibrillation with rapid ventricular response, Acute hypokalemia, RSV infection ED Provider Note INFORMANT: Patient ED PROVIDER(S): Delfino Varghese MD CHIEF COMPLAINT: Dyspnea PLAN: Disposition: Admitted Condition: Guarded Outpatient prescription management: none Referral: None MEDICAL DECISION MAKING: Patient presented due to dyspnea and shortness of breath. She was hypoxic down to 79%. She responded well to supplemental oxygen. She was still very tachypneic. Patient was given a dose of IV steroids and a Xopenex nebulizer treatment. She was wheezy but was very tachycardic with atrial fibrillation and RVR. Patient did not take her beta-charlene today. Because of the wheezing beta-blockers were held and the patient was placed on a Cardizem drip. She did feel better after the steroids and the Xopenex. The patient's heart rate was better controlled. She was able to titrate off the nonrebreather to nasal cannula oxygen. Chest x-ray was concerning for left lower lobe infiltrate. The patient had a bio fire test performed and RSV was isolated. No other abnormalities were found. Patient does have a leukocytosis of 15,000. She had a mildly elevated lactate. She was hydrated. The patient had a potassium of 2.8 and therefore IV potassium was administered. Her magnesium was also mildly low and that was repleted. Her troponin is elevated which I suspect is due to demand ischemia and from hypoxia. LFTs were minimally elevated. The patient will need further management in the hospital as she is severely impacted by this respiratory issue. Consultation was made with the [facility] service. The case was discussed and diagnostics were reviewed. Patient was evaluated by the team in the emergency department and admitted for further management. Triage Nursing notes reviewed and agree them. Vital Signs: reviewed and remarkable for tachypnea and hypoxia Differential diagnosis: Viral syndrome, reactive airway disease, pneumonia, pneumothorax, COPD, CHF, infections, cardiac ischemia, pulmonary embolism, musculoskeletal, gastrointestinal, as well as other pathologies. Diagnostics interpreted by me: ECG: Twelve-lead ECG reveals atrial fibrillation with rapid ventricular response at 113 bpm. Septal Q waves present. Lateral T wave inversions present. Cardiac Monitoring: Cardiac monitoring ordered by me: The patient was placed on continuous cardiac monitoring and observed. It revealed atrial fibrillation at 94 bpm. Imaging studies: Chest x-ray concerning for left lower lobe infiltrate. I refer you to the EMR for further details. HPI: The patient is a 86 year old female who presents to the Emergency Room with complaints of shortness of breath. This started over the last few days and is much worse today. The patient also notes the following associated symptoms, cough, weakness. The patient has found no relieving factors. Current pain is rated as 0/10. Patient reportedly was tested positive for RSV 2 days ago in the outpatient clinic. She was having difficulty breathing and EMS was summoned. Her O2 saturation was 79% and her respirations were 32. Pt denies LOC, headache, fevers, chills, diaphoresis, visual changes, neck pain, chest pain, nausea, vomiting, abdominal pain, back pain, melena, hematochezia, urinary symptoms, numbness, lymphadenopathy, rash, or other complaints. ROS: See above HPI for pertinent positives & negatives. A total of 10 systems reviewed and were otherwise negative. PAST MEDICAL HISTORY:See Below , COPD PAST SURGICAL HISTORY:See Below, FAMILY HISTORY:See Below SOCIAL HISTORY:See Below, former smoker HOME MEDICATIONS:See Below ALLERGIES:See Below VITALS:See Below PHYSICAL EXAMINATION: GENERAL: Awake, alert, ill appearing, in mild distress HEAD: Normocephalic, atraumatic. No edema. EYES: Normal conjunctiva. Sclera non-icteric. NOSE: Mild congestion. OROPHARYNX: Lips, tongue, and mucosa unremarkable. No erythema or exudate. NECK: Supple. No nuchal rigidity. FROM. No adenopathy. RESPIRATORY: Scattered wheezes and rales in the left base. Tachypnea. Increased respiratory effort. CARDIAC: Borderline tachycardic rate, normal rhythm. ABDOMEN: Soft, non distended. No tenderness to palpation. NEURO: Normal sensorium. SKIN: No rash or jaundice noted. CRITICAL CARE: I have personally spent greater than 50 minutes of critical care time in the direct management of this patient. This includes bedside care, interpretation of diagnostic studies, and testing, discussion with consultants, patient, and family members, and other required patient management activities. These minutes are in excess of all separately billable procedures. Delfino Varghese MD Past Med/Surg History Medical History Anomalous origin of left coronary artery Arthritis Asthma CAD (coronary artery disease) History of diverticulosis History of stomach ulcers Ocular migraine Paroxysmal atrial flutter Pneumonia SIADH (syndrome of inappropriate ADH production) Surgical History H/O shoulder surgery History of cardiac cath History of cataract surgery History of colonoscopy History of dilatation and curettage History of gynecological procedure History of tonsillectomy and adenoidectomy History of tooth extraction Family History Father Family history of asthma Pneumonia H/O heart bypass surgery Osteoporosis Asthma Mother Hypertension Osteoporosis Denies family history of Ovarian cancer Prostate cancer Myocardial infarction Breast cancer Colorectal cancer Social History Smoking Status: Never smoker Second Hand Exposure: No; Hx Alcohol Use: Yes Alcohol type: wine Alcohol Intake Frequency: 4 or More x per/Week Alcohol Intake Frequency Comment: Glass of wine in the evening Hx Substance Use: No Preferred Language: Telugu Communication Ability: Effective Visual Impairment: Limited Hearing Ability: Normal Inspector Machine Parts Required: No Beliefs That Will Affect Care: None marital status: single Current Living Situation: Significant Other Current Living Situation Comment: in a house current occupational status: employed current occupation: [employer] How many Children do You have: 2 Other Information That Helps Us Care for You: No Feels Safe at Home: Yes Safety Concerns: Feels Safe At This Time Childhood Exposure to Second-Hand Smoke: Yes Diet Comment: Educated to increase protein, vitamin c, d and zinc caffeine: Yes during the past year weight has: remained stable Dental Care, Regularly: Yes Physical Activity Frequency: Daily Seatbelt Use: always Sunscreen Use: Yes Do you think of yourself as: straight/heterosexual Gender Identity: Female Assistive Devices: Glasses Allergies Allergies Allergy/AdvReac Type Severity Reaction Status Date / Time clomipramine AdvReac Intermediate FLU-LIKE Verified 05/29/22 10:27 SYMPTOMS Home Meds Home Medications Medication Instructions Recorded Confirmed cholecalciferol (vitamin D3) 50 2,000 units PO QAM 08/28/18 05/29/22 mcg (2,000 unit) capsule calcium carbonate 500 mg calcium 500 mg PO BID 02/19/20 05/29/22 (1,250 mg) chewable tablet (Calcium 500) omega-3 360 vh-vft-izw-fish oil 1 cap PO QAM 02/19/20 05/29/22 1,200 mg capsule,delayed release (Fish Oil) biotin 5,000 mcg disintegrating 7,500 mcg PO QAM 08/27/21 05/29/22 tablet glucosamine sulf dipot 1 cap PO QAM 08/27/21 05/29/22 chlr,msm,chond 550 mg-C 30 mg-oscar 1 mg capsule (Glucosamine Chondroitin) acetaminophen 500 mg capsule 1,000 mg PO BID PRN Pain 04/07/22 05/29/22 Previous Rx's Medication Instructions Recorded atorvastatin 40 mg tablet 40 mg PO QAM 30 days #30 tabs 09/08/21 furosemide 20 mg tablet 20 mg PO QAM #30 tabs 09/08/21 isosorbide mononitrate 30 mg 30 mg PO QAM #30 tabs 09/08/21 tablet,extended release 24 hr metoprolol tartrate 50 mg tablet 75 mg PO BID #270 tabs 09/08/21 albuterol sulfate 90 mcg/actuation 2 puff inhalation QID PRN 10/06/21 aerosol inhaler (ProAir HFA) Shortness Of Breath #18 grams losartan 100 mg tablet 50 mg PO BID #90 tabs 10/30/21 apixaban 2.5 mg tablet (Eliquis) 2.5 mg PO BID #180 tabs 02/15/22 levothyroxine 25 mcg tablet 25 mcg PO QAM #90 tabs 02/23/22 montelukast 10 mg tablet 10 mg PO QAM #90 tabs 04/20/22 fluticasone fur. 200 mcg-umeclid 1 inh inhalation DAILY #3 Inhalers 04/26/22 62.5 mcg-vilant 25 mcg inhalat.powder (Trelegy Ellipta) zolpidem 5 mg tablet 5 mg PO HS #30 tabs 05/14/22 prednisone 20 mg tablet 20 mg PO .COMPLEX #30 tabs 05/27/22 Results & Data (ED) Vital Signs Vital Signs - 24 hr 05/29/22 10:00 05/29/22 10:00 05/29/22 10:00 Temperature 36.9 C Temperature Source Oral Pulse Rate 113 H Pulse Rate [Left Finger] Pulse Rate from SpO2 Sensor Pulse Rhythm Irregular Pulse Strength Normal Respiratory Rate 32 H Respiratory Effort / Characteristics Labored Labored Respiratory Depth Shallow Shallow Respiratory Pattern Tachypnea Tachypnea Blood Pressure 211/129 H Blood Pressure [Left Arm] Blood Pressure Mean 156 Blood Pressure Mean [Left Arm] Blood Pressure Position Lying Blood Pressure Position [Left Arm] Pulse Oximetry 79 L 79 L Oxygen Delivery Method Room Air Non-rebreather Non-rebreather Oxygen Flow Rate 15 15 Sepsis Recent Fever Within 48 Hours Yes Sepsis New/Unexplained Change in Mental Status No Sepsis Action Taken by Nursing Physician Notified Pulse Oximetry Post Tiitration 97 05/29/22 10:30 05/29/22 11:00 05/29/22 11:21 Temperature Temperature Source Pulse Rate 114 H 112 H Pulse Rate [Left Finger] Pulse Rate from SpO2 Sensor 122 H 111 H Pulse Rhythm Pulse Strength Respiratory Rate 29 H 31 H 26 H Respiratory Effort / Characteristics Non-Labored Spontaneous Respiratory Depth Respiratory Pattern Blood Pressure 204/116 H 182/106 H Blood Pressure [Left Arm] Blood Pressure Mean 145 131 Blood Pressure Mean [Left Arm] Blood Pressure Position Blood Pressure Position [Left Arm] Pulse Oximetry 99 100 Oxygen Delivery Method Non-rebreather Non-rebreather Non-rebreather Oxygen Flow Rate 10 10 15 Sepsis Recent Fever Within 48 Hours Sepsis New/Unexplained Change in Mental Status Sepsis Action Taken by Nursing Pulse Oximetry Post Tiitration 05/29/22 11:31 05/29/22 11:31 Temperature Temperature Source Pulse Rate 110 H Pulse Rate [Left Finger] 110 H Pulse Rate from SpO2 Sensor Pulse Rhythm Irregular Pulse Strength Respiratory Rate 26 H 26 H Respiratory Effort / Characteristics Grunting Labored Respiratory Depth Respiratory Pattern Blood Pressure Blood Pressure [Left Arm] 188/88 H Blood Pressure Mean Blood Pressure Mean [Left Arm] 121 Blood Pressure Position Blood Pressure Position [Left Arm] Sitting Pulse Oximetry 98 95 Oxygen Delivery Method Aerosol Mask Aerosol Mask Oxygen Flow Rate Sepsis Recent Fever Within 48 Hours Sepsis New/Unexplained Change in Mental Status Sepsis Action Taken by Nursing Pulse Oximetry Post Tiitration Laboratory Data Result diagrams: 05/29/22 10:10 05/29/22 10:10 Lab Results 05/29/22 05/29/22 05/29/22 Range/Units 10:10 10:10 10:10 WBC 15.16 H (4.8-10.8) K/ul RBC 3.92 L (3.93-5.22) M/uL Hgb 13.2 (12.0-16.0) g/dl Hct 38.1 (34.1-44.9) % MCV 97.2 (80.0-100.0) fL MCH 33.7 (25.0-34.0) pg MCHC 34.6 (32.0-36.0) g/dL RDW Std Deviation 43.7 (36.4-46.3) fL RDW Coeff of Geo 12.2 (11.5-14.5) % Plt Count 243 (130-400) K/uL MPV 11.1 (9.4-12.3) fL Immature Gran % (Auto) 0.5 % Neut % (Auto) 81.9 % Lymph % (Auto) 9.6 % [place] % (Auto) 7.8 % Eos % (Auto) 0.1 % Baso % (Auto) 0.1 % Neut # (Auto) 12.42 H (1.4-6.5) K/uL Lymph # (Auto) 1.46 (1.2-3.4) K/uL [place] # (Auto) 1.18 H (0.24-0.82) K/uL Eos # (Auto) 0.01 (0-0.50) K/uL Baso # (Auto) 0.02 (0-0.2) K/uL Immature Gran # (Auto) 0.07 H (0.00-0.02) K/uL Sodium 133 L (136-145) mmol/L Potassium 2.8 L (3.5-5.1) mmol/L Chloride 97 L (98-107) mmol/L Carbon Dioxide 26 (21-32) mmol/L Anion Gap 10 (3-11) BUN 15 (6-23) mg/dl Creatinine 0.47 L (0.6-1.2) mg/dl Est Cr Clr Drug Dosing 63.6 ml/min Est GFR ( Amer) 105.1 ml/min Est GFR (Non-Af Amer) 90.7 ml/min BUN/Creatinine Ratio 31.9 H (10-20) Glucose 112 H (70-99(Fasting)) mg/dl Lactate (0.4-2.0) mmol/L Calcium 8.6 (8.5-10.1) mg/dl Magnesium 1.7 (1.7-2.4) mg/dl Total Bilirubin 0.6 (0.2-1.0) mg/dl AST 43 H (13-39) U/L ALT 57 H (7-52) U/L Alkaline Phosphatase 173 H (34-104) U/L Troponin I High Sens 15.6 H (0-14) pg/ml Total Protein 7.0 (6.0-8.3) gm/dl Albumin 3.5 (3.4-5.0) gm/dl Globulin 3.5 (2.5-4.0) gm/dl Albumin/Globulin Ratio 1.0 (0.9-2) Urine Color Urine Appearance (Clear) Urine pH (4.5-7.5) Ur Specific [place] (1.000-1.030) Urine Protein (Negative) Urine Glucose (UA) (Negative) Urine Ketones (Negative) Urine Blood (Negative) Urine Nitrite (Negative) Urine Bilirubin (Negative) Urine Urobilinogen (Negative) Ur Leukocyte Esterase (Negative) Urine WBC (Auto) (0-5) /hpf Urine RBC (Auto) (0-4) /hpf U Hyaline Cast (Auto) (0-5) /lpf U Epithel Cells (Auto) (0-5) /lpf Urine Bacteria (Auto) (Negative) Adenovirus (PCR) Not Detected (NotDetected) B. pertussis DNA (PCR) Not Detected (NotDetected) B.parapertussis DNA PCR Not Detected (NotDetected) C. pneumoniae DNA (PCR) Not Detected (NotDetected) Coronavirus OC43 (PCR) Not Detected (NotDetected) Coronavirus HKU1 (PCR) Not Detected (NotDetected) Coronavirus 229E (PCR) Not Detected (NotDetected) SARS-CoV-2 (PCR) Not Detected (NotDetected) Coronavirus NL63 (PCR) Not Detected (NotDetected) Human Metapneumovir PCR Not Detected (NotDetected) Influenza Type A (PCR) Not Detected (NotDetected) Influenza Type B (PCR) Not Detected (NotDetected) M. pneumoniae (PCR) Not Detected (NotDetected) Parainfluenza 1 (PCR) Not Detected (NotDetected) Parainfluenza 2 (PCR) Not Detected (NotDetected) Parainfluenza 3 (PCR) Not Detected (NotDetected) Parainfluenza 4 (PCR) Not Detected (NotDetected) RSV (PCR) DETECTED A* (NotDetected) Entero/Rhino (PCR) Not Detected (NotDetected) 05/29/22 05/29/22 Range/Units 10:10 11:06 WBC (4.8-10.8) K/ul RBC (3.93-5.22) M/uL Hgb (12.0-16.0) g/dl Hct (34.1-44.9) % MCV (80.0-100.0) fL MCH (25.0-34.0) pg MCHC (32.0-36.0) g/dL RDW Std Deviation (36.4-46.3) fL RDW Coeff of Geo (11.5-14.5) % Plt Count (130-400) K/uL MPV (9.4-12.3) fL Immature Gran % (Auto) % Neut % (Auto) % Lymph % (Auto) % [place] % (Auto) % Eos % (Auto) % Baso % (Auto) % Neut # (Auto) (1.4-6.5) K/uL Lymph # (Auto) (1.2-3.4) K/uL [place] # (Auto) (0.24-0.82) K/uL Eos # (Auto) (0-0.50) K/uL Baso # (Auto) (0-0.2) K/uL Immature Gran # (Auto) (0.00-0.02) K/uL Sodium (136-145) mmol/L Potassium (3.5-5.1) mmol/L Chloride (98-107) mmol/L Carbon Dioxide (21-32) mmol/L Anion Gap (3-11) BUN (6-23) mg/dl Creatinine (0.6-1.2) mg/dl Est Cr Clr Drug Dosing ml/min Est GFR ( Amer) ml/min Est GFR (Non-Af Amer) ml/min BUN/Creatinine Ratio (10-20) Glucose (70-99(Fasting)) mg/dl Lactate 2.1 H* (0.4-2.0) mmol/L Calcium (8.5-10.1) mg/dl Magnesium (1.7-2.4) mg/dl Total Bilirubin (0.2-1.0) mg/dl AST (13-39) U/L ALT (7-52) U/L Alkaline Phosphatase (34-104) U/L Troponin I High Sens (0-14) pg/ml Total Protein (6.0-8.3) gm/dl Albumin (3.4-5.0) gm/dl Globulin (2.5-4.0) gm/dl Albumin/Globulin Ratio (0.9-2) Urine Color Yellow Urine Appearance Clear (Clear) Urine pH 7.0 (4.5-7.5) Ur Specific [place] 1.013 (1.000-1.030) Urine Protein 2+ H (Negative) Urine Glucose (UA) Negative (Negative) Urine Ketones Negative (Negative) Urine Blood 2+ H (Negative) Urine Nitrite Negative (Negative) Urine Bilirubin Negative (Negative) Urine Urobilinogen Negative (Negative) Ur Leukocyte Esterase Negative (Negative) Urine WBC (Auto) 1-5 (0-5) /hpf Urine RBC (Auto) >30 H (0-4) /hpf U Hyaline Cast (Auto) 1-5 (0-5) /lpf U Epithel Cells (Auto) 10-20 H (0-5) /lpf Urine Bacteria (Auto) Negative (Negative) Adenovirus (PCR) (NotDetected) B. pertussis DNA (PCR) (NotDetected) B.parapertussis DNA PCR (NotDetected) C. pneumoniae DNA (PCR) (NotDetected) Coronavirus OC43 (PCR) (NotDetected) Coronavirus HKU1 (PCR) (NotDetected) Coronavirus 229E (PCR) (NotDetected) SARS-CoV-2 (PCR) (NotDetected) Coronavirus NL63 (PCR) (NotDetected) Human Metapneumovir PCR (NotDetected) Influenza Type A (PCR) (NotDetected) Influenza Type B (PCR) (NotDetected) M. pneumoniae (PCR) (NotDetected) Parainfluenza 1 (PCR) (NotDetected) Parainfluenza 2 (PCR) (NotDetected) Parainfluenza 3 (PCR) (NotDetected) Parainfluenza 4 (PCR) (NotDetected) RSV (PCR) (NotDetected) Entero/Rhino (PCR) (NotDetected) Administered Medications Albuterol (Albut/Ipratrop 3mg/0.5mg Neb 3 Ml Vial) 3 ml INH Q6R GEOFFREY Stop: 06/28/22 15:52 Last Admin: 05/29/22 16:23 Dose: 3 ml Documented By: PAKO Discontinued Medications Albuterol (Albut/Ipratrop 3mg/0.5mg Neb 3 Ml Vial) 3 ml NEB NOW STA; Protocol Stop: 05/29/22 13:17 Last Admin: 05/29/22 13:15 Dose: 3 ml Documented By: REESE Diltiazem HCl 125 mg/ Dextrose 125 mls @ 5 mls/hr IV .Q24H GEOFFREY; Protocol Stop: 06/28/22 10:44 Last Admin: 05/29/22 11:25 Dose: 5 mg/hr, 5 mls/hr Documented By: JEAN-PAUL Co-signed By: REESE Ceftriaxone Sodium (Rocephin) 2,000 mg in 70 mls @ 140 mls/hr IV NOW STA Stop: 05/29/22 11:24 Last Infusion: 05/29/22 12:49 Dose: 0 mls/hr Documented By: Admin: 05/29/22 12:19 Dose: 140 mls/hr Documented By: REESE Doxycycline Hyclate 100 mg/ (Dextrose) 110 mls @ 50 mls/hr IV NOW STA Stop: 05/29/22 13:06 Last Infusion: 05/29/22 16:24 Dose: 0 mls/hr Documented By: Admin: 05/29/22 13:03 Dose: 50 mls/hr Documented By: REESE Potassium Chloride (K Serg[place] / Wtr) 10 meq in 100 mls @ 100 mls/hr IV Q1H GEOFFREY; Protocol Stop: 05/29/22 13:29 Last Infusion: 05/29/22 14:00 Dose: 0 mls/hr Documented By: Admin: 05/29/22 13:04 Dose: 100 mls/hr Documented By: Infusion: 05/29/22 13:04 Dose: 100 mls/hr Documented By: Admin: 05/29/22 12:05 Dose: 100 mls/hr Documented By: REESE Magnesium Sulfate/Dextrose (Magnesium Sulfate / D5w) 1 gm in 100 mls @ 50 mls/hr IV ONE ONE Stop: 05/29/22 13:25 Last Infusion: 05/29/22 13:10 Dose: 0 mls/hr Documented By: Admin: 05/29/22 12:05 Dose: 50 mls/hr Documented By: REESE Sodium Chloride (Nss 1000ml) 1,000 mls @ 999 mls/hr IV .Q1H1M ONE Stop: 05/29/22 12:52 Last Infusion: 05/29/22 13:08 Dose: 0 mls/hr Documented By: Admin: 05/29/22 12:07 Dose: 999 mls/hr Documented By: REESE Levalbuterol HCl (Levalbuterol Hcl 0.63 Mg/3 Ml Neb) 0.63 mg NEB NOW STA; Protocol Stop: 05/29/22 10:34 Last Admin: 05/29/22 11:20 Dose: 0.63 mg Documented By: PAKO Levalbuterol HCl (Levalbuterol 1.25mg/0.5ml Neb) Confirm Administered Dose 1.25 mg .ROUTE .STK-MED ONE Stop: 05/29/22 10:59 Last Admin: 05/29/22 11:26 Dose: Not Given Documented By: JEAN-PAUL Methylprednisolone (Methylprednisolone 125 Mg/2 Ml Vial) 60 mg IV NOW STA Stop: 05/29/22 10:34 Last Admin: 05/29/22 10:56 Dose: 60 mg Documented By: JEAN-PAUL Miscellaneous (Stat Iv Infusion Titration Per Protocol) 1 each N/A NOW STA Stop: 05/29/22 10:34 Last Admin: 05/29/22 11:56 Dose: Not Given Documented By: REESE Imaging Data Radiologist's Impression: Chest X-Ray 05/29/22 10:33 XR chest 1V portable CLINICAL HISTORY: Dyspnea COMPARISON STUDY: Chest radiograph February 14, 2020. FINDINGS: Degenerative changes of the glenohumeral joints are incidentally noted. There is no pneumothorax. Trace bilateral pleural effusions are present. There is mild left basilar opacity. Mild interstitial thickening is present. Cardiomediastinal silhouette is stable. IMPRESSION: 1. Findings suggestive of mild interstitial pulmonary edema. Trace bilateral pleural effusions. 2. Mild left basilar opacity which likely reflects atelectasis. An infectious process could appear similar. Radiographic follow-up is recommended. ACT 112: Negative or not required by law. Electronically signed by: Reginaldo Barnes M.D. 05/29/2022 10:48 AM Discharge Plan Visit Data Chief Complaint: Shortness of Breath/Dyspnea ED Provider: Delfino Varghese Discharge Problem: Acute on chronic respiratory failure with hypoxemia, Left lower lobe pulmonary infiltrate, Atrial fibrillation with rapid ventricular response, Acute hypokalemia, RSV infection Patient Disposition: Admitted As Inpatient Discharge Instructions Interventions: ED Discharge Assessment Last Done: 05/29/22 16:00
[2022-05-29 11:46] LABS: Adenovirus PCR Not Detected (NotDetected); Bordetella parapertussis PCR Not Detected (NotDetected); Bordetella pertussis PCR Not Detected (NotDetected); Chlamydia pneumoniae PCR Not Detected (NotDetected); Coronavirus 229E PCR Not Detected (NotDetected); Coronavirus CoV-2 (COVID19)PCR Not Detected (NotDetected); Coronavirus HKU1 PCR Not Detected (NotDetected); Coronavirus NL63 PCR Not Detected (NotDetected); Coronavirus OC43PCR Not Detected (NotDetected); Human Metapneumovirus PCR Not Detected (NotDetected); Influenza A PCR Not Detected (NotDetected); Influenza B PCR Not Detected (NotDetected); Mycoplasma pneumoniae PCR Not Detected (NotDetected); Parainfluenza Virus 1 PCR Not Detected (NotDetected); Parainfluenza Virus 2 PCR Not Detected (NotDetected); Parainfluenza Virus 3 PCR Not Detected (NotDetected); Parainfluenza Virus 4 PCR Not Detected (NotDetected); Rhinovirus/Enterovirus PCR Not Detected (NotDetected)
[2022-05-29 11:48] LABS: Respiratory Syncytial VirusPCR DETECTED (NotDetected)
[2022-05-29] MEDS ORDERED: SODIUM CHLORIDE 0.9% 1000ML 1,000 ML IV ONE (11:52)
[2022-05-29] MEDS: POTASSIUM CHLORIDE / WTR 10 MEQ/100 ML PLCT IV SCH ×2 (12:05→13:04)
--- NOTE | 2022-05-29 12:34 | History & Physical Report ---
Date of Service May 29, 2022 Assessment & Plan (1) Acute on chronic respiratory failure with hypoxemia: Plan: Pt has history of COPD now with acute RSV, LLL pneumonia, blood cultures pending will treat for CAP with Rocephin and doxycycline duonebs iv solumedrol will continue trelegy supplemental oxygen incentive spirometry (2) Abnormal ECG: Plan: pt had Afib RVR , has Afib history, on diltiazem gtt ( ER avoiding B Blockers with respiratory distress) very mild elevation of trop maybe demand ischemia from profound hypoxia in the field will trend troponins add low dose asprin to atorvastatin (3) Hypokalemia: Plan: repelte and also given magmesium, this maybe also influencing afib RVR (4) Atrial fibrillation with rapid ventricular response: Plan: curretly on diltiazem gtt, typically on metoprolol 75 bid and apixiban (5) CAD (coronary artery disease): Plan: starting low dose aspirin, continuing metoprolol and isosorbide, htn treatment with also losartain and lasix (6) Pulmonary hypertension: Plan: lasix to help volume reduce (7) SIADH (syndrome of inappropriate ADH production): Plan: sodium is 133 will follow with illness Plan synthroid for hypothyroidism eliquis for DVT prevention History of Present Illness Primary Care Provider: ELEUTERIO Randolph 86 year old female who presents with complaints of shortness of breath and found to have RSV with LLL pneumonia. This is associated with symptoms of cough & weakness. Patient reportedly was tested positive for RSV 2 days ago in the outpatient clinic. She was having difficulty breathing and EMS was summoned. Her O2 saturation was 79% and her respirations were 32. The pt has a history of COPD and CAD with Afib. She is profoundly hypokalemic typically on trelegy and singulair Allergies Allergy/AdvReac Type Severity Reaction Status Date / Time clomipramine AdvReac Intermediate FLU-LIKE Verified 05/29/22 10:27 SYMPTOMS Home Medications Medication Instructions Recorded Confirmed Type cholecalciferol (vitamin D3) 50 2,000 units PO QAM 08/28/18 05/29/22 History mcg (2,000 unit) capsule calcium carbonate 500 mg calcium 500 mg PO BID 02/19/20 05/29/22 History (1,250 mg) chewable tablet (Calcium 500) omega-3 360 ox-ehk-orn-fish oil 1 cap PO QAM 02/19/20 05/29/22 History 1,200 mg capsule,delayed release (Fish Oil) biotin 5,000 mcg disintegrating 7,500 mcg PO QAM 08/27/21 05/29/22 History tablet glucosamine sulf dipot 1 cap PO QAM 08/27/21 05/29/22 History chlr,msm,chond 550 mg-C 30 mg-oscar 1 mg capsule (Glucosamine Chondroitin) atorvastatin 40 mg tablet 40 mg PO QAM 30 days #30 tabs 09/08/21 05/29/22 Rx furosemide 20 mg tablet 20 mg PO QAM #30 tabs 09/08/21 05/29/22 Rx isosorbide mononitrate 30 mg 30 mg PO QAM #30 tabs 09/08/21 05/29/22 Rx tablet,extended release 24 hr metoprolol tartrate 50 mg tablet 75 mg PO BID #270 tabs 09/08/21 05/29/22 Rx albuterol sulfate 90 mcg/actuation 2 puff inhalation QID PRN 10/06/21 05/29/22 Rx aerosol inhaler (ProAir HFA) Shortness Of Breath #18 grams losartan 100 mg tablet 50 mg PO BID #90 tabs 10/30/21 05/29/22 Rx apixaban 2.5 mg tablet (Eliquis) 2.5 mg PO BID #180 tabs 02/15/22 05/18/22 Rx levothyroxine 25 mcg tablet 25 mcg PO QAM #90 tabs 02/23/22 05/29/22 Rx acetaminophen 500 mg capsule 1,000 mg PO BID PRN Pain 04/07/22 05/29/22 History montelukast 10 mg tablet 10 mg PO QAM #90 tabs 04/20/22 05/29/22 Rx fluticasone fur. 200 mcg-umeclid 1 inh inhalation DAILY #3 Inhalers 04/26/22 05/29/22 Rx 62.5 mcg-vilant 25 mcg inhalat.powder (Trelegy Ellipta) zolpidem 5 mg tablet 5 mg PO HS #30 tabs 05/14/22 05/29/22 Rx prednisone 20 mg tablet 20 mg PO .COMPLEX #30 tabs 05/27/22 05/29/22 Rx Past Med/Surg History Medical History (Updated 05/29/22 @ 12:25 by Andres Beth MD) Anomalous origin of left coronary artery Arthritis Asthma USES NEBULIZER 1X DAILY>DENIES RECENT USE OF RESCUE INHALER CAD (coronary artery disease) History of diverticulosis History of stomach ulcers Ocular migraine Paroxysmal atrial flutter FOLLOWED BY DR. SHIKHA Solitario SIADH (syndrome of inappropriate ADH production) Surgical History H/O shoulder surgery RT History of cardiac cath 01/2019 NO STENTS History of cataract surgery RT/LEFT History of colonoscopy History of dilatation and curettage History of gynecological procedure Insertion of pessary/REMOVED History of tonsillectomy and adenoidectomy History of tooth extraction Family History Father Family history of asthma Pneumonia H/O heart bypass surgery Osteoporosis Asthma Mother Hypertension Osteoporosis Denies family history of Ovarian cancer Prostate cancer Myocardial infarction Breast cancer Colorectal cancer Social History Smoking Status: Unknown if ever smoked Second Hand Exposure: No; Hx Alcohol Use: Yes Alcohol type: wine Alcohol Intake Frequency: 4 or More x per/Week Alcohol Intake Frequency Comment: Glass of wine in the evening Hx Substance Use: No Preferred Language: Kazakh Communication Ability: Effective Visual Impairment: Limited Hearing Ability: Normal Bit Tapper Required: No Beliefs That Will Affect Care: None marital status: single Current Living Situation: Significant Other Current Living Situation Comment: in a house current occupational status: employed current occupation: [employer] How many Children do You have: 2 Feels Safe at Home: Yes Childhood Exposure to Second-Hand Smoke: Yes Diet Comment: Educated to increase protein, vitamin c, d and zinc caffeine: Yes during the past year weight has: remained stable Dental Care, Regularly: Yes Physical Activity Frequency: Daily Seatbelt Use: always Sunscreen Use: Yes Do you think of yourself as: straight/heterosexual Gender Identity: Female Assistive Devices: Glasses Review of Systems Review of Systems: Mild distress and fatigue no headache, no visual changes no speech or swallowing issues no chest pain, pressure or palpitations no shortness of breath, cough or wheezes no abdominal pain, nausea or vomiting, diarrhea or constipation no dysuria, hematuria or frequency no focal joint pain or swelling no back pain, CVA tenderness or radicular pain no bruising, bleeding or rashes no focal signs of weakness or numbness or altered sensation no complaints of anxiety or depression.. Physical Exam Physical Exam: The patient appeared well nourished and normally developed. Vital signs as documented. Head exam is normocephalic atraumatic Neck is without JVD, thyromegaly, or carotid bruits. Lungs are clear to auscultation, no focal loss of breath sounds Cardiac exam, Rhythm is regular.. No murmurs, rubs or gallops. Abdominal exam reveals normal bowel sounds, soft non tender, no masses Extremities are nonedematous and both pedal pulses are present Neurologic exam is alert and oriented, no focal loss of strength or sensation Skin is without bruises or rashes Psychologically is without concerns for anxiety or depression.. Results & Data Results & Data ([facility]) Vital Signs (Past 12 Hours) Vital Signs Temp Pulse Pulse Resp BP BP Pulse Ox 05/29/22 11:31 110 H 26 H 95 05/29/22 11:31 110 H 26 H 188/88 H 98 05/29/22 11:21 26 H 05/29/22 11:00 112 H 31 H 182/106 H 100 05/29/22 10:30 114 H 29 H 204/116 H 99 05/29/22 10:00 79 L 05/29/22 10:00 05/29/22 10:00 98.4 F 113 H 32 H 211/129 H 79 L O2 Del Method O2 Flow Rate 05/29/22 11:31 Aerosol Mask 05/29/22 11:31 Aerosol Mask 05/29/22 11:21 Non-rebreather 15 05/29/22 11:00 Non-rebreather 10 05/29/22 10:30 Non-rebreather 10 05/29/22 10:00 Non-rebreather 15 05/29/22 10:00 Non-rebreather 15 05/29/22 10:00 Room Air Diagnostic Findings Chest X-Ray 05/29/22 10:33 XR chest 1V portable CLINICAL HISTORY: Dyspnea COMPARISON STUDY: Chest radiograph February 14, 2020. FINDINGS: Degenerative changes of the glenohumeral joints are incidentally noted. There is no pneumothorax. Trace bilateral pleural effusions are present. There is mild left basilar opacity. Mild interstitial thickening is present. Cardiomediastinal silhouette is stable. IMPRESSION: 1. Findings suggestive of mild interstitial pulmonary edema. Trace bilateral pleural effusions. 2. Mild left basilar opacity which likely reflects atelectasis. An infectious process could appear similar. Radiographic follow-up is recommended. ACT 112: Negative or not required by law. Electronically signed by: Reginaldo Barnes M.D. 05/29/2022 10:48 AM ECG Additional Comments: Atrial fibrillation with rapid ventricular response with lateral ST depression PG Care Time/CCT Total # of Minutes Spent Total Time Spent with Patient: Total time spent is greater than 50% in coordination of care (as documented) at patient's floor/unit and/or counseling patient: Coding Level of Care Code 74383 Initial Inpt Care Lvl 3 Diagnoses Acute on chronic respiratory failure with hypoxemia J96.21 Abnormal ECG R94.31 Hypokalemia E87.6 Atrial fibrillation with rapid ventricular response I48.91 CAD (coronary artery disease) I25.10 Pulmonary hypertension I27.20 SIADH (syndrome of inappropriate ADH production) E22.2
[2022-05-29] MEDS ORDERED: ALBUT/IPRATROP 3MG/0.5MG NEB 3 ML VIAL NEB STA (13:16)
--- NOTE | 2022-05-29 14:55 | Electrocardiogram Report ---
Test Reason : Blood Pressure : / mmHG Vent. Rate : 113 BPM Atrial Rate : 110 BPM P-R Int : 000 ms QRS Dur : 084 ms QT Int : 320 ms P-R-T Axes : 000 023 199 degrees QTc Int : 438 ms Atrial fibrillation with rapid ventricular response Septal infarct (cited on or before 14-FEB-2020) Abnormal ECG When compared with ECG of 15-FEB-2020 06:50, ST now depressed in Lateral leads Nonspecific T wave abnormality has replaced inverted T waves in Inferior leads T wave inversion no longer evident in Anterior leads Confirmed by Duglas Bal ([id number]) on 05/29/2022 2:54:53 PM Referred By: REFERRED SELF Confirmed By:Duglas Bal
[2022-05-29] MEDS ORDERED: METOPROLOL TARTRATE 1 MG/ML VIAL IV PRN (15:53)
[2022-05-29] MEDS ORDERED: NITROGLYCERIN SL 0.4 MG/TAB TAB SL PRN (15:53)
[2022-05-29] MEDS ORDERED: POTASSIUM CHLORIDE 40 MEQ in SODIUM CHLORIDE 0.9% 1000ML 1,000 ML IV SCH (15:53)
[2022-05-29] MEDS ORDERED: ACETAMINOPHEN 500 MG TAB PO PRN (15:53)
[2022-05-29] MEDS ORDERED: ONDANSETRON INJ 2 MG/ML 2 ML VIAL IV PRN (15:53)
[2022-05-29] MEDS ORDERED: ALUMINUM/MAGNESIUM SUSP 30 ML UDC PO PRN (15:53)
[2022-05-29] MEDS: ALBUT/IPRATROP 3MG/0.5MG NEB 3 ML VIAL INH SCH ×2 (16:23→19:09)
[2022-05-29] MEDS: guaiFENesin/CODEINE 100MG/10MG 5ML UDC PO PRN (17:55)
[2022-05-29] MEDS ORDERED: ASPIRIN 81 MG CHEW PO SCH (18:15)
[2022-05-29] MEDS: APIXABAN 2.5 MG TAB PO SCH (21:13)
[2022-05-29] MEDS: METOPROLOL TARTRATE 50 MG TAB PO SCH (21:13)
[2022-05-29] MEDS: ZOLPIDEM TARTRATE 5 MG TAB PO SCH (21:13)
[2022-05-29] MEDS: LOSARTAN POTASSIUM 50 MG TAB PO SCH (21:13)
[2022-05-29] MEDS: POTASSIUM CHLORIDE CRTAB 20 MEQ TABCR PO SCH (21:13)
[2022-05-30] MEDS: ALBUT/IPRATROP 3MG/0.5MG NEB 3 ML VIAL INH SCH ×4 (00:31→13:07)
[2022-05-30] MEDS: DOXYCYCLINE HYCLATE 100 MG in DEXTROSE 5% 100 ML IV SCH ×2 (01:29→12:23)
[2022-05-30] MEDS ORDERED: ALBUT/IPRATROP 3MG/0.5MG NEB 3 ML VIAL NEB PRN (03:28)
[2022-05-30 06:47] LABS: Hematocrit (blood only) 36.4 % (34.1-44.9); Hemoglobin 12.4 g/dl (12.0-16.0); Mean Corpuscular Hemoglobin 33.1 pg (25.0-34.0); Mean Corpuscular Hgb Conc 34.1 g/dL (32.0-36.0); Mean Corpuscular Volume 97.1 fL (80.0-100.0); Mean Platelet Volume 10.5 fL (9.4-12.3); Platelet Count 269 K/uL (130-400); RDW Coefficient of Variation 12.5 % (11.5-14.5); RDW Standard Deviation 44.9 fL (36.4-46.3); Red Blood Count 3.75 M/uL (3.93-5.22); White Blood Count 16.34 K/ul (4.8-10.8)
[2022-05-30 07:21] LABS: BUN Creatinine Ratio 33.3 (10-20); Calcium 8.2 mg/dl (8.5-10.1); Creatinine Clr Calc Pharmacy 55.7 ml/min; Est GFR (African American) 100.4 ml/min; Est GFR (Non-African American) 86.7 ml/min; Magnesium 1.9 mg/dl (1.7-2.4); Potassium 4.6 mmol/L (3.5-5.1); Troponin I High Sensitivity 37.9 pg/ml (0-14)
[2022-05-30] MEDS ORDERED: METOPROLOL TARTRATE 1 MG/ML VIAL IV STA (08:43)
[2022-05-30] MEDS: ATORVASTATIN 40 MG TAB PO SCH (08:50)
[2022-05-30] MEDS: APIXABAN 2.5 MG TAB PO SCH ×2 (08:50→20:23)
[2022-05-30] MEDS: ASPIRIN 81 MG ECTAB PO SCH (08:51)
[2022-05-30] MEDS: POTASSIUM CHLORIDE CRTAB 20 MEQ TABCR PO SCH (08:51)
[2022-05-30] MEDS: METOPROLOL TARTRATE 50 MG TAB PO SCH ×2 (08:51→20:24)
[2022-05-30] MEDS: ISOSORBIDE MONO EXTENDED REL 30 MG TABCR PO SCH (08:52)
[2022-05-30] MEDS: LEVOTHYROXINE SODIUM 25 MCG TABLET PO SCH (08:52)
[2022-05-30] MEDS: FUROSEMIDE 20 MG TAB PO SCH (08:52)
[2022-05-30] MEDS: MONTELUKAST SODIUM 10 MG TABLET PO SCH (08:52)
[2022-05-30] MEDS: LOSARTAN POTASSIUM 50 MG TAB PO SCH ×2 (08:52→20:24)
[2022-05-30] MEDS ORDERED: FLUTICASONE FUROATE 200MCG 14 PUFFS/INHALER INH SCH (09:00)
[2022-05-30] MEDS ORDERED: UMECLIDINIUM/VILANTEROL 62.5/25MCG 7 PUFFS/INHALER INH SCH (09:00)
[2022-05-30] MEDS ORDERED: predniSONE 20 MG TAB PO SCH (09:00)
[2022-05-30] MEDS: guaiFENesin/CODEINE 100MG/10MG 5ML UDC PO PRN ×2 (10:59→18:15)
[2022-05-30] MEDS: cefTRIAXone SODIUM 2,000 MG in DEXTROSE 5% 50 ML IV SCH (11:19)
--- NOTE | 2022-05-30 12:27 | Cardiology Consultation ---
Date of Consultation May 30, 2022 Assessment & Plan (1) Atrial fibrillation with rapid ventricular response: (2) Acute on chronic respiratory failure with hypoxemia: (3) CAD (coronary artery disease): Plan 1. Atrial fibrillation: She is known to have permanent atrial fibrillation. Her rates were rapid time of presentation and had been rapid intermittently during her hospitalization. 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 Diltiazem for short. During her admission. Currently now on her home dose of metoprolol and intermittent doses of intravenous metoprolol. Think this is reasonable. I would anticipate some episodes of tachycardia based on her clinical status. As her pulmonary process improves and her tachypnea resolves, heart rates are likely to return to normal. Continue systemic anticoagulation. 2. Coronary artery disease: She is known to have some disease involving the circumflex artery. She generally does not have symptoms of ischemic heart disease. He is on appropriate secondary prevention to include apixaban and atorvastatin. 3. Elevated troponin: She has mildly elevated troponin in the setting tachycardia and hypoxia. This is anticipated in the setting of her known obstructive coronary disease. Treatment at this point is supportive. Maintain good oxygenation, limit tachycardia, hypertension or hypotension. 4. Hypoxia: This appears to be primarily related to a pulmonary process, underlying COPD/asthma and RSV. There was a comment about some mild pulmonary vascular congestion on x-ray. I suppose this could looks similar to a viral pneumonia. She did receive her daily dose of Lasix today. Additional doses could be given if there is any concern about pulmonary edema in the setting of her underlying pulmonary process. History of Present Illness Reason for Consultation: Atrial fibrillation Requesting Physician: Kirit Attending Physician: All Banda MD History of Present Illness The patient is an 86-year-old woman with a history of permanent atrial fibrillation, transient left ventricular dysfunction and coronary artery disease who was admitted the hospital with hypoxic respiratory failure. Patient states that approximately 5 days ago she began have symptoms of breathing difficulty. Associated with a nonproductive cough and other constitutional symptoms. Due to the progressive nature of her symptoms she presents to the hospital where she was discovered to be hypoxic, tachypneic and tachycardic. The remainder of the history could not be obtained as the patient did not wish to speak. She was tachypneic and wanted to concentrate on breathing. Review of her record and discussion with the family member suggest she is typically quite active. She is used to exercising regularly. She does suffer from asthma and COPD. Recently she has been on steroids worsening breathing difficulty. Allergies Allergy/AdvReac Type Severity Reaction Status Date / Time clomipramine AdvReac Intermediate FLU-LIKE Verified 05/29/22 10:27 SYMPTOMS Home Medications Medication Instructions Recorded Confirmed Type cholecalciferol (vitamin D3) 50 2,000 units PO QAM 08/28/18 05/29/22 History mcg (2,000 unit) capsule calcium carbonate 500 mg calcium 500 mg PO BID 02/19/20 05/29/22 History (1,250 mg) chewable tablet (Calcium 500) omega-3 360 ca-uuz-mmf-fish oil 1 cap PO QAM 02/19/20 05/29/22 History 1,200 mg capsule,delayed release (Fish Oil) biotin 5,000 mcg disintegrating 7,500 mcg PO QAM 08/27/21 05/29/22 History tablet glucosamine sulf dipot 1 cap PO QAM 08/27/21 05/29/22 History chlr,msm,chond 550 mg-C 30 mg-oscar 1 mg capsule (Glucosamine Chondroitin) atorvastatin 40 mg tablet 40 mg PO QAM 30 days #30 tabs 09/08/21 05/29/22 Rx furosemide 20 mg tablet 20 mg PO QAM #30 tabs 09/08/21 05/29/22 Rx isosorbide mononitrate 30 mg 30 mg PO QAM #30 tabs 09/08/21 05/29/22 Rx tablet,extended release 24 hr metoprolol tartrate 50 mg tablet 75 mg PO BID #270 tabs 09/08/21 05/29/22 Rx albuterol sulfate 90 mcg/actuation 2 puff inhalation QID PRN 10/06/21 05/29/22 Rx aerosol inhaler (ProAir HFA) Shortness Of Breath #18 grams losartan 100 mg tablet 50 mg PO BID #90 tabs 10/30/21 05/29/22 Rx apixaban 2.5 mg tablet (Eliquis) 2.5 mg PO BID #180 tabs 02/15/22 05/29/22 Rx levothyroxine 25 mcg tablet 25 mcg PO QAM #90 tabs 02/23/22 05/29/22 Rx acetaminophen 500 mg capsule 1,000 mg PO BID PRN Pain 04/07/22 05/29/22 History montelukast 10 mg tablet 10 mg PO QAM #90 tabs 04/20/22 05/29/22 Rx fluticasone fur. 200 mcg-umeclid 1 inh inhalation DAILY #3 Inhalers 04/26/22 05/29/22 Rx 62.5 mcg-vilant 25 mcg inhalat.powder (Trelegy Ellipta) zolpidem 5 mg tablet 5 mg PO HS #30 tabs 05/14/22 05/29/22 Rx prednisone 20 mg tablet 20 mg PO .COMPLEX #30 tabs 05/27/22 05/29/22 Rx Patient History Medical History Anomalous origin of left coronary artery Arthritis Asthma CAD (coronary artery disease) History of diverticulosis History of stomach ulcers Ocular migraine Paroxysmal atrial flutter Pneumonia SIADH (syndrome of inappropriate ADH production) Surgical History H/O shoulder surgery History of cardiac cath History of cataract surgery History of colonoscopy History of dilatation and curettage History of gynecological procedure History of tonsillectomy and adenoidectomy History of tooth extraction Family History Father Family history of asthma Pneumonia H/O heart bypass surgery Osteoporosis Asthma Mother Hypertension Osteoporosis Denies family history of Ovarian cancer Prostate cancer Myocardial infarction Breast cancer Colorectal cancer Social History Smoking Status: Never smoker Second Hand Exposure: No; Hx Alcohol Use: Yes Alcohol type: wine Alcohol Intake Frequency: 4 or More x per/Week Alcohol Intake Frequency Comment: Glass of wine in the evening Hx Substance Use: No Preferred Language: Mohawk Communication Ability: Effective Visual Impairment: Limited Hearing Ability: Normal 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 Beliefs That Will Affect Care: None marital status: single Current Living Situation: Significant Other Current Living Situation Comment: in a house current occupational status: employed current occupation: [employer] How many Children do You have: 2 Other Information That Helps Us Care for You: No Feels Safe at Home: Yes Safety Concerns: Feels Safe At This Time Childhood Exposure to Second-Hand Smoke: Yes Diet Comment: Educated to increase protein, vitamin c, d and zinc caffeine: Yes during the past year weight has: remained stable Dental Care, Regularly: Yes Physical Activity Frequency: Daily Seatbelt Use: always Sunscreen Use: Yes Do you think of yourself as: straight/heterosexual Gender Identity: Female Assistive Devices: Glasses Review of Systems Review of Systems: Per HPI. No significant improvement with beta agonists. Physical Exam Physical Exam: She is alert and oriented x3. She was in respiratory distress. She answers all questions appropriately. Tachypneic. HEENT: Sclerae are anicteric. Pupils are equal and reactive to light and accommodation. Extraocular movements were intact. Neuro: Cranial nerves intact Lungs: Poor air movement overall. Tachypneic. Significant expiratory wheezing and bronchial breath sounds. Cardiac: The rhythm was irregular. S1 and S2 were normal. There are no murmurs on examination. The PMI was not markedly displaced on palpation. Abdomen: The abdomen was soft and nontender. Extremities: Patient has bilateral radial pulses that are equal in intensity. There is no evidence cyanosis or clubbing. There was no evidence of significant peripheral edema bilaterally. Skin: There are no rashes noted on examination today. Results & Data ([facility]) Vital Signs (Past 12 Hours) Vital Signs Temp Pulse Pulse Resp BP BP Pulse Ox 05/30/22 11:53 109 H 26 H 92 05/30/22 08:00 05/30/22 08:56 124 H 166/81 H 05/30/22 08:45 152 H 180/68 H 05/30/22 08:25 184 H 197/104 H 05/30/22 08:45 150 H 180/68 H 05/30/22 08:25 189 H 173/102 H 05/30/22 08:11 103 H 20 96 05/30/22 07:38 36.9 C 113 H 23 173/102 H 93 05/30/22 03:45 97 H 20 96 05/30/22 03:19 36.5 C 98 H 22 173/104 H 98 05/30/22 00:32 95 H 20 96 O2 Del Method O2 Flow Rate 05/30/22 11:53 Nasal Cannula 4 05/30/22 08:00 Room Air 3 05/30/22 08:56 01/01/23 08:45 05/30/22 08:25 05/30/22 08:45 05/30/22 08:25 05/30/22 08:11 Nasal Cannula 3 05/30/22 07:38 Nasal Cannula 3 05/30/22 03:45 Nasal Cannula 3 05/30/22 03:19 Nasal Cannula 2 05/30/22 00:32 Nasal Cannula 3 Laboratory Results Abnormal Lab Results 05/29/22 05/29/22 05/29/22 10:10 13:00 21:00 WBC RBC Hgb Hct MCV MCH MCHC RDW Std Deviation RDW Coeff of Geo Plt Count MPV Sodium Potassium Chloride Carbon Dioxide Anion Gap BUN Creatinine Est Cr Clr Drug Dosing Est GFR ( Amer) Est GFR (Non-Af Amer) BUN/Creatinine Ratio Glucose Lactate 1.5 Calcium Magnesium Troponin I High Sens 19.6 H D Procalcitonin 0.37 05/30/22 05/30/22 06:25 06:25 WBC 16.34 H RBC 3.75 L Hgb 12.4 Hct 36.4 MCV 97.1 MCH 33.1 MCHC 34.1 RDW Std Deviation 44.9 RDW Coeff of Geo 12.5 Plt Count 269 MPV 10.5 Sodium 132 L Potassium 4.6 D Chloride 102 Carbon Dioxide 24 Anion Gap 6 BUN 18 Creatinine 0.54 L Est Cr Clr Drug Dosing 55.7 Est GFR ( Amer) 100.4 Est GFR (Non-Af Amer) 86.7 BUN/Creatinine Ratio 33.3 H Glucose 142 H Lactate Calcium 8.2 L Magnesium 1.9 Troponin I High Sens 37.9 H D Procalcitonin Diagnostic Findings Echocardiogram performed 03/10/2020: Normal LV systolic function with ejection fraction of 60 65%. Mild mitral regurgitation. 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 20% distal left main. No significant LAD disease. Distal circumflex 80% stenosis. Nonobstructive disease in the right coronary artery. Chest x-ray obtained the time admission revealed mild interstitial pulmonary edema. Left lower lobe atelectasis versus infiltrate. ECG Additional Comments: EKG obtained the time admission revealed atrial fibrillation with rapid ventricular response. Nonspecific ST and T-wave changes and poor R-wave progression in precordial leads. Diffuse T-wave inversions noted in 2019 have resolved. PG Care Time/CCT Total # of Minutes Spent Total Time Spent with Patient: Total time spent is greater than 50% in coordination of care (as documented) at patient's floor/unit and/or counseling patient: Coding Level of Care Code 29219 Initial Inpt Care Lvl 3 Diagnoses Atrial fibrillation with rapid ventricular response I48.91 Acute on chronic respiratory failure with hypoxemia J96.21 CAD (coronary artery disease) I25.10
--- NOTE | 2022-05-30 12:41 | Pulmonary Consultation ---
Date of Consultation May 30, 2022 Assessment & Plan (1) RSV infection: (2) Hypoxia: (3) Osteoporosis: (4) Atrial fibrillation with rapid ventricular response: (5) Asthma-COPD overlap syndrome: Plan Her symptoms are due to multifactorial reasons including acute exacerbation of o bstructive lung disease from RSV which is causing her to go into atrial fibrillation with rapid ventricular response. Transition from p.o. prednisone to IV Solu-Medrol. Continue monitoring respiratory status closely. We will start hypertonic saline twice daily and percussive vest therapy 4 times daily. Will restart diltiazem drip to control heart rate. Goal heart rate less than 110, goal systolic blood pressures greater than 100. This was discussed with the nurse. Limit noncardioselective beta-blockers given acute wheezing. DC ICS/LABA/LAMA inhaler. Start nebulized budesonide and arformoterol twice daily due to poor inspiratory effort and tachypnea. Start Xopenex every 6 hours. Will give 2 grams of magnesium IV. Continue broad-spectrum antibiotics. Low threshold for ICU transfer. Patient for the consult. We will continue to follow. Discussed with bedside nurse, patient and at bedside. History of Present Illness Reason for Consultation: RSV Attending Physician: All Banda MD History of Present Illness 86-year-old female with reported history of atrial fibrillation, COPD and GERD who presented to the hospital due to increasing shortness of breath and nonproductive cough. She was found to be RSV positive on admission. She is being treated for community-acquired pneumonia with ceftriaxone and doxycycline. She is also on prednisone 40 mg daily. Chest x-ray personally reviewed with mild interstitial pulmonary edema. Minimal left basilar opacity. On exam for short of breath with minimal exertion. Her heart rate occasionally goes to the 120s. She is very anxious as well as her . She notes shortness of breath and cough with occasional sputum production. No fevers, chills or night sweats. She was previously a smoker in her 20s. Carries a long history of asthma. 05/11/2021 revealed an FEV1 of 52% predicted with a significant postbronchodilator response. Mild air trapping and moderately reduced DLCO. Follows with Dr. Riggs in the outpatient clinic. Allergies Allergy/AdvReac Type Severity Reaction Status Date / Time clomipramine AdvReac Intermediate FLU-LIKE Verified 05/29/22 10:27 SYMPTOMS Home Medications Medication Instructions Recorded Confirmed Type cholecalciferol (vitamin D3) 50 2,000 units PO QAM 08/28/18 05/29/22 History mcg (2,000 unit) capsule calcium carbonate 500 mg calcium 500 mg PO BID 02/19/20 05/29/22 History (1,250 mg) chewable tablet (Calcium 500) omega-3 360 ve-tdc-fmc-fish oil 1 cap PO QAM 02/19/20 05/29/22 History 1,200 mg capsule,delayed release (Fish Oil) biotin 5,000 mcg disintegrating 7,500 mcg PO QAM 08/27/21 05/29/22 History tablet glucosamine sulf dipot 1 cap PO QAM 08/27/21 05/29/22 History chlr,msm,chond 550 mg-C 30 mg-oscar 1 mg capsule (Glucosamine Chondroitin) atorvastatin 40 mg tablet 40 mg PO QAM 30 days #30 tabs 09/08/21 05/29/22 Rx furosemide 20 mg tablet 20 mg PO QAM #30 tabs 09/08/21 05/29/22 Rx isosorbide mononitrate 30 mg 30 mg PO QAM #30 tabs 09/08/21 05/29/22 Rx tablet,extended release 24 hr metoprolol tartrate 50 mg tablet 75 mg PO BID #270 tabs 09/08/21 05/29/22 Rx albuterol sulfate 90 mcg/actuation 2 puff inhalation QID PRN 10/06/21 05/29/22 Rx aerosol inhaler (ProAir HFA) Shortness Of Breath #18 grams losartan 100 mg tablet 50 mg PO BID #90 tabs 10/30/21 05/29/22 Rx apixaban 2.5 mg tablet (Eliquis) 2.5 mg PO BID #180 tabs 02/15/22 05/29/22 Rx levothyroxine 25 mcg tablet 25 mcg PO QAM #90 tabs 02/23/22 05/29/22 Rx acetaminophen 500 mg capsule 1,000 mg PO BID PRN Pain 04/07/22 05/29/22 History montelukast 10 mg tablet 10 mg PO QAM #90 tabs 04/20/22 05/29/22 Rx fluticasone fur. 200 mcg-umeclid 1 inh inhalation DAILY #3 Inhalers 04/26/22 05/29/22 Rx 62.5 mcg-vilant 25 mcg inhalat.powder (Trelegy Ellipta) zolpidem 5 mg tablet 5 mg PO HS #30 tabs 05/14/22 05/29/22 Rx prednisone 20 mg tablet 20 mg PO .COMPLEX #30 tabs 05/27/22 05/29/22 Rx Patient History Medical History (Updated 05/30/22 @ 13:06 by Finesse Hoffman MD) Anomalous origin of left coronary artery Arthritis Asthma USES NEBULIZER 1X DAILY>DENIES RECENT USE OF RESCUE INHALER Atrial fibrillation with rapid ventricular response CAD (coronary artery disease) History of diverticulosis History of stomach ulcers Hypoxia Ocular migraine Paroxysmal atrial flutter FOLLOWED BY DR. SHIKHA Solitario SIADH (syndrome of inappropriate ADH production) Surgical History H/O shoulder surgery RT History of cardiac cath 01/2019 NO STENTS History of cataract surgery RT/LEFT History of colonoscopy History of dilatation and curettage History of gynecological procedure Insertion of pessary/REMOVED History of tonsillectomy and adenoidectomy History of tooth extraction Family History Father Family history of asthma Pneumonia H/O heart bypass surgery Osteoporosis Asthma Mother Hypertension Osteoporosis Denies family history of Ovarian cancer Prostate cancer Myocardial infarction Breast cancer Colorectal cancer Social History Smoking Status: Never smoker Second Hand Exposure: No; Hx Alcohol Use: Yes Alcohol type: wine Alcohol Intake Frequency: 4 or More x per/Week Alcohol Intake Frequency Comment: Glass of wine in the evening Hx Substance Use: No Preferred Language: Iraqi Communication Ability: Effective Visual Impairment: Limited Hearing Ability: Normal Manager Fixed Income Required: No Beliefs That Will Affect Care: None marital status: single Current Living Situation: Significant Other Current Living Situation Comment: in a house current occupational status: employed current occupation: [employer] How many Children do You have: 2 Other Information That Helps Us Care for You: No Feels Safe at Home: Yes Safety Concerns: Feels Safe At This Time Childhood Exposure to Second-Hand Smoke: Yes Diet Comment: Educated to increase protein, vitamin c, d and zinc caffeine: Yes during the past year weight has: remained stable Dental Care, Regularly: Yes Physical Activity Frequency: Daily Seatbelt Use: always Sunscreen Use: Yes Do you think of yourself as: straight/heterosexual Gender Identity: Female Assistive Devices: Glasses Review of Systems Review of Systems: All systems reviewed & are unremarkable except as noted in HPI & below Physical Exam Physical Exam: Constitutional: Patient appears to be of their stated age. Patient is in no apparent distress. Patient is well-developed. Eyes: Pupils are equal round and reactive to light. Conjunctivae are normal. Anicteric sclera. Ears nose, mouth and throat: Deferred. Neck: Trachea is midline. Visual inspection is normal. Respiratory: Rhonchorous sounding. Tachypneic. Cardiovascular: Irregularly irregular. No murmurs. Gastrointestinal: Normal bowel sounds, soft, nontender and nondistended. No hepatosplenomegaly noted. Musculoskeletal: No cyanosis. Patient is able to move all extremities. Skin: No rashes, warm dry and intact. Neurologic: No obvious focal neurological deficits seen. Psychiatric: Alert and oriented x3 with a euthymic affect. Results & Data Results & Data ([facility]) Vital Signs (Past 12 Hours) Vital Signs Temp Pulse Pulse Resp BP BP Pulse Ox 05/30/22 12:16 36.5 C 112 H 31 H 184/99 H 94 05/30/22 11:53 109 H 26 H 92 05/30/22 08:00 05/30/22 08:56 124 H 166/81 H 05/30/22 08:45 152 H 180/68 H 05/30/22 08:25 184 H 197/104 H 05/30/22 08:45 150 H 180/68 H 05/30/22 08:25 189 H 173/102 H 05/30/22 08:11 103 H 20 96 05/30/22 07:38 36.9 C 113 H 23 173/102 H 93 05/30/22 03:45 97 H 20 96 05/30/22 03:19 36.5 C 98 H 22 173/104 H 98 O2 Del Method O2 Flow Rate 05/30/22 12:16 Nasal Cannula 4 05/30/22 11:53 Nasal Cannula 4 05/30/22 08:00 Room Air 3 05/30/22 08:56 05/30/22 08:45 05/30/22 08:25 05/30/22 08:45 05/30/22 08:25 05/30/22 08:11 Nasal Cannula 3 05/30/22 07:38 Nasal Cannula 3 05/30/22 03:45 Nasal Cannula 3 05/30/22 03:19 Nasal Cannula 2 PG Care Time/CCT Total # of Minutes Spent Total Time Spent with Patient: Total time spent is greater than 50% in coordination of care (as documented) at patient's floor/unit and/or counseling patient: Coding Level of Care Code 39633 Initial Inpt Care Lvl 3 Diagnoses RSV infection B33.8 Hypoxia R09.02 Osteoporosis M81.0 Atrial fibrillation with rapid ventricular response I48.91 Asthma-COPD overlap syndrome J44.9
[2022-05-30] MEDS ORDERED: dilTIAZem HCl 5 MG/ML 5 ML VIAL IV STA ×2 (12:55→13:07)
[2022-05-30] MEDS ORDERED: STAT IV Infusion **Titration per Protocol STA ×2 (13:03→13:07)
[2022-05-30] MEDS ORDERED: dilTIAZem HCL 125 MG in DEXTROSE 5% 100 ML IV SCH (13:15)
[2022-05-30] MEDS: dilTIAZem HCL 125 MG in DEXTROSE 5% 100 ML IV SCH (13:33)
[2022-05-30] MEDS: MAGNESIUM SULFATE / D5W 1 GM/100 ML BAG IV SCH ×2 (13:45→15:34)
[2022-05-30] MEDS ORDERED: XOPENEX/ATROVENT 0.63mg/0.5MG NEB COMBO NEB SCH (19:00)
--- NOTE | 2022-05-30 19:59 | Hospitalist Progress Note ---
Date of Service May 30, 2022 Assessment & Plan (1) Acute on chronic respiratory failure with hypoxemia: Plan: Pt has history of COPD now with acute RSV, LLL pneumonia, blood cultures pending will treat for CAP with Rocephin and doxycycline duonebs iv solumedrol Pulmonary consultation appreciated Continue supplemental oxygen incentive spirometry (2) Abnormal ECG: Plan: pt had Afib RVR , has Afib history, on diltiazem gtt ( ER avoiding B Blockers with respiratory distress) very mild elevation of trop maybe demand ischemia from profound hypoxia in the field will trend troponins add low dose asprin to atorvastatin (3) Hypokalemia: Plan: repelte and also given magmesium, this maybe also influencing afib RVR (4) Atrial fibrillation with rapid ventricular response: Plan: curretly on diltiazem gtt, typically on metoprolol 75 bid and apixiban (5) CAD (coronary artery disease): Plan: starting low dose aspirin, continuing metoprolol and isosorbide, htn treatment with also losartain and lasix (6) Pulmonary hypertension: Plan: Monitor input output closely (7) SIADH (syndrome of inappropriate ADH production): Plan: sodium is 133 will follow with illness Plan synthroid for hypothyroidism eliquis for DVT prevention Admission and Anticipated Discharge Date Admission Date: May 29, 2022 Subjective Patient had earlier developed increasing anxiety and shortness of breath Seen with pulmonology and patient started on Cardizem for rate control along with IV steroids started with improvement in symptoms Physical Exam Physical Exam: Constitutional: Mild distress in a.m. that is improved upon reexamination HEENT: No scleral injection or discharge. . Clear oropharynx without exudate. Neck: Supple without lymphadenopathy or thyromegaly. Trachea midline. Lungs: Clear to auscultation bilaterally with good effort. Cardiac: Normal rhythm. No murmurs.No extremity edema. 2+ distal peripheral pulses. Abdomen:Bowel sounds present. Soft and nondistended. . No guarding MSK: No cyanosis or clubbing. . Skin: No rashes, warm, dry. Neurologic: Grossly intact cranial nerves. Results & Data Results & Data ([facility]) Vital Signs (Past 12 Hours) Vital Signs Temp Pulse Pulse Resp BP BP Pulse Ox 05/30/22 16:32 36.5 C 95 H 23 136/70 94 05/30/22 13:18 112 H 128/60 94 05/30/22 13:07 118 H 28 H 91 05/30/22 12:16 36.5 C 112 H 31 H 184/99 H 94 05/30/22 11:53 109 H 26 H 92 05/30/22 08:00 05/30/22 08:56 124 H 166/81 H 05/30/22 08:45 152 H 180/68 H 05/30/22 08:25 184 H 197/104 H 05/30/22 08:45 150 H 180/68 H 05/30/22 08:25 189 H 173/102 H 05/30/22 08:11 103 H 20 96 O2 Del Method O2 Flow Rate 05/30/22 16:32 Nasal Cannula 4 05/30/22 13:18 Nasal Cannula 3 05/30/22 13:07 Nasal Cannula 4 05/30/22 12:16 Nasal Cannula 4 05/30/22 11:53 Nasal Cannula 4 05/30/22 08:00 Room Air 3 05/30/22 08:56 05/30/22 08:45 05/30/22 08:25 05/30/22 08:45 05/30/22 08:25 05/30/22 08:11 Nasal Cannula 3 Laboratory Results Short CBC 05/30/22 Range/Units 06:25 WBC 16.34 H (4.8-10.8) K/ul Hgb 12.4 (12.0-16.0) g/dl Hct 36.4 (34.1-44.9) % Plt Count 269 (130-400) K/uL BMP 05/30/22 06:25 Sodium 132 L Potassium 4.6 D Chloride 102 Carbon Dioxide 24 BUN 18 Creatinine 0.54 L Glucose 142 H Calcium 8.2 L PG Care Time/CCT Total # of Minutes Spent Total Time Spent with Patient: Total time spent is greater than 50% in coordination of care (as documented) at patient's floor/unit and/or counseling patient: Coding Level of Care Code 49943 Subseq Hosp Care Lvl 2 Diagnoses Acute on chronic respiratory failure with hypoxemia J96.21 Abnormal ECG R94.31 Hypokalemia E87.6 Atrial fibrillation with rapid ventricular response I48.91 CAD (coronary artery disease) I25.10 Pulmonary hypertension I27.20 SIADH (syndrome of inappropriate ADH production) E22.2
[2022-05-30] MEDS: SODIUM CHLOR 7% 4 ML NEB NEB SCH (20:16)
[2022-05-30] MEDS: IPRATROPIUM BROMIDE NEB SOLN 0.02% 2.5 ML VIAL INH SCH (20:16)
[2022-05-30] MEDS: LEVALBUTEROL HCL 0.63 MG/3 ML NEB NEB SCH (20:16)
[2022-05-30] MEDS: BUDESONIDE 0.5 MG/2 ML VIAL (PULMICORT) NEB SCH (20:16)
[2022-05-30] MEDS: FORMOTEROL 20 MCG/2 ML VIAL INH SCH (20:16)
[2022-05-30] MEDS: ZOLPIDEM TARTRATE 5 MG TAB PO SCH (20:23)
[2022-05-30] MEDS ORDERED: methylPREDNISolone 40 MG in SYRINGE 0 ML IV SCH (21:00)
[2022-05-30] MEDS: methylPREDNISolone 40 MG in SYRINGE 0 ML IV SCH (21:49)
[2022-05-31] MEDS: DOXYCYCLINE HYCLATE 100 MG in DEXTROSE 5% 100 ML IV SCH ×2 (01:08→12:29)
[2022-05-31] MEDS: LEVALBUTEROL HCL 0.63 MG/3 ML NEB NEB SCH ×4 (01:43→20:05)
[2022-05-31] MEDS: IPRATROPIUM BROMIDE NEB SOLN 0.02% 2.5 ML VIAL INH SCH ×4 (01:43→20:05)
[2022-05-31 05:57] LABS: Hematocrit (blood only) 33.4 % (34.1-44.9); Hemoglobin 11.5 g/dl (12.0-16.0); Mean Corpuscular Hgb Conc 34.4 g/dL (32.0-36.0); Mean Corpuscular Volume 95.7 fL (80.0-100.0); Mean Platelet Volume 10.8 fL (9.4-12.3); Platelet Count 263 K/uL (130-400); RDW Coefficient of Variation 12.4 % (11.5-14.5); RDW Standard Deviation 43.8 fL (36.4-46.3); Red Blood Count 3.49 M/uL (3.93-5.22); White Blood Count 15.58 K/ul (4.8-10.8)
[2022-05-31 06:23] LABS: BUN Creatinine Ratio 41.3 (10-20); Calcium 7.9 mg/dl (8.5-10.1); Creatinine Clr Calc Pharmacy 65.4 ml/min; Est GFR (African American) 105.9 ml/min; Est GFR (Non-African American) 91.3 ml/min; Magnesium 2.1 mg/dl (1.7-2.4); Potassium 3.9 mmol/L (3.5-5.1)
[2022-05-31 06:43] LABS: Basophils # (auto) 0.02 K/uL (0-0.2); Basophils % (auto) 0.1 %; Immature Granulocytes # (auto) 0.09 K/uL (0.00-0.02); Immature Granulocytes % (auto) 0.6 %; Lymphocytes # (auto) 0.52 K/uL (1.2-3.4); Lymphocytes % (auto) 3.3 %; Monocytes # (auto) 0.64 K/uL (0.24-0.82); Monocytes % (auto) 4.1 %; Neutrophils # (auto) 14.31 K/uL (1.4-6.5); Neutrophils % (auto) 91.9 %
[2022-05-31] MEDS ORDERED: Nursing to Pharmacy Communication SCH (07:15)
[2022-05-31] MEDS: BUDESONIDE 0.5 MG/2 ML VIAL (PULMICORT) NEB SCH ×2 (07:46→20:05)
[2022-05-31] MEDS: SODIUM CHLOR 7% 4 ML NEB NEB SCH ×2 (07:46→20:05)
[2022-05-31] MEDS: FORMOTEROL 20 MCG/2 ML VIAL INH SCH ×2 (07:46→20:05)
[2022-05-31] MEDS ORDERED: SODIUM CHLORIDE 0.65% NA SOLN 45 ML (OCEAN) ONE (08:44)
--- NOTE | 2022-05-31 09:06 | Pulmonology Progress Note ---
Date of Service May 31, 2022 Assessment & Plan (1) RSV infection: (2) Hypoxia: (3) Atrial fibrillation with rapid ventricular response: (4) Asthma-COPD overlap syndrome: Plan -- Acute hypoxic respiratory failure Likely secondary to exacerbation of patient's underlying asthma-COPD from RSV infection A. 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 Right ventricle is normal in size and function mild TR, mild MR -- Ex-smoker Only 4-pack-year smoking history Quit at the age of 22 Encouraged to continue abstinence from smoking Plan: In/out: -218, +2.7 L since coming to the hospital Continue with hypertonic saline nebulized, budesonide and Perforomist nebulized along with flutter valve and chest vest therapy Continue with Solu-Medrol 40 mg twice a day Patient is as well as nurse stated that she did find some improvement when it comes to her breathing once metoprolol was held today. Would recommend to hold the metoprolol and rather transition diltiazem to p.o. Recommend continue with diuresis as well to keep the patient negative balance Complete the course of antibiotics for total of 5 days Rib chest x-ray in the morning Case was discussed with RN and hospitalist Please note the above document was generated using voice recognition software. It may contain grammatical, syntax or spelling errors.Any formal questions or concerns about the content, text or information contained within the body of this dictation should be directly addressed to the provider for clarification. Admission and Anticipated Discharge Date Admission Date: May 29, 2022 Subjective Patient seen and examined at bedside. Case discussed with outgoing product technician Patient follows up with me as an outpatient, I saw the patient last on 04/20/2022. At the time of examination patient was saturating 94% on 3 L, I went down to 2 L. Patient stated that she has been still having coughing and difficulty bringing u p phlegm. She has been getting the chest vest therapy. Did not use the flutter valve much. Denies any nausea vomiting Shortness of breath is still there. Review of Systems Review of Systems: All systems reviewed & are unremarkable except as noted in Subjective Physical Exam Physical Exam: Constitutional: No acute distress HEENT: EOMI, PERRLA Respiratory system: Decreased air entry bilaterally, no rhonchi, positive ex piratory wheeze bilaterally, positive crackles bilateral lower lobes CVS: S1-S2 positive, no murmurs or gallops, tachycardia Abdomen: Soft, nontender, nondistended, positive bowel sounds x4 Extremities: +2 pulses bilaterally radialis/ dorsalis pedis, no cyanosis, no edema Neuro: Awake alert oriented x3 Psych: Normal mood and affect G/U: No [place] Skin: no rashes, warm and dry Lymphatic: no cervical or axillary lymphadenopathy Results & Data Results & Data ([facility]) Vital Signs (Past 12 Hours) Vital Signs Temp Pulse Pulse Resp BP BP Pulse Ox 05/31/22 07:50 90 20 95 05/31/22 07:33 36.8 C 90 22 162/89 H 95 05/31/22 04:15 36.6 C 81 20 135/65 97 05/31/22 01:44 74 18 96 05/30/22 23:27 36.7 C 70 22 132/76 97 05/30/22 23:01 75 O2 Del Method O2 Flow Rate 05/31/22 07:50 Nasal Cannula 4 05/31/22 07:33 Nasal Cannula 4 05/31/22 04:15 Nasal Cannula 4.0 05/31/22 01:44 Nasal Cannula 4 05/30/22 23:27 Nasal Cannula 4.0 05/30/22 23:01 Laboratory Results 05/31/22 05:13 05/31/22 05:13 PG Care Time/CCT Total # of Minutes Spent Total Time Spent with Patient: Total time spent is greater than 50% in coordination of care (as documented) at patient's floor/unit and/or counseling patient: Coding Level of Care Code 57771 Subseq Hosp Care Lvl 3 Diagnoses RSV infection B33.8 Hypoxia R09.02 Atrial fibrillation with rapid ventricular response I48.91 Asthma-COPD overlap syndrome J44.9
[2022-05-31] MEDS: MONTELUKAST SODIUM 10 MG TABLET PO SCH (09:16)
[2022-05-31] MEDS: LOSARTAN POTASSIUM 50 MG TAB PO SCH ×2 (09:16→21:40)
[2022-05-31] MEDS: ATORVASTATIN 40 MG TAB PO SCH (09:16)
[2022-05-31] MEDS: methylPREDNISolone 40 MG in SYRINGE 0 ML IV SCH ×2 (09:16→21:40)
[2022-05-31] MEDS: LEVOTHYROXINE SODIUM 25 MCG TABLET PO SCH (09:16)
[2022-05-31] MEDS: FUROSEMIDE 20 MG TAB PO SCH (09:17)
[2022-05-31] MEDS: ISOSORBIDE MONO EXTENDED REL 30 MG TABCR PO SCH (09:17)
[2022-05-31] MEDS: APIXABAN 2.5 MG TAB PO SCH ×2 (09:17→21:40)
[2022-05-31] MEDS: ASPIRIN 81 MG ECTAB PO SCH (09:17)
[2022-05-31] MEDS: cefTRIAXone SODIUM 2,000 MG in DEXTROSE 5% 50 ML IV SCH (11:47)
[2022-05-31] MEDS: METOPROLOL TARTRATE 50 MG TAB PO SCH ×2 (14:34→21:24)
[2022-05-31] MEDS: dilTIAZem HCL 125 MG in DEXTROSE 5% 100 ML IV SCH (15:55)
--- NOTE | 2022-05-31 18:43 | Electrocardiogram Report ---
Test Reason : Blood Pressure : / mmHG Vent. Rate : 117 BPM Atrial Rate : 107 BPM P-R Int : 000 ms QRS Dur : 074 ms QT Int : 318 ms P-R-T Axes : 000 077 -50 degrees QTc Int : 443 ms Atrial fibrillation with rapid ventricular response Poor R wave progression, consider anterior OK vs. lead placement vs. LVH Abnormal ECG When compared with ECG of 29-MAY-2022 10:07, T wave inversion no longer evident in Lateral leads Confirmed by Da Altamirano ([id number]) on 05/31/2022 6:42:49 PM Referred By: REFERRED SELF Confirmed By:Anuj Altamirano
--- NOTE | 2022-05-31 19:02 | Electrocardiogram Report ---
Test Reason : Blood Pressure : / mmHG Vent. Rate : 081 BPM Atrial Rate : 357 BPM P-R Int : 000 ms QRS Dur : 082 ms QT Int : 384 ms P-R-T Axes : 000 060 269 degrees QTc Int : 446 ms Atrial fibrillation Low voltage QRS Abnormal ECG When compared with ECG of 30-MAY-2022 06:06, (unconfirmed) No significant change was found Confirmed by Da Altamirano ([id number]) on 05/31/2022 7:01:53 PM Referred By: REFERRED SELF Confirmed By:Anuj Altamirano
[2022-05-31] MEDS: ZOLPIDEM TARTRATE 5 MG TAB PO SCH (21:40)
--- NOTE | 2022-06-01 00:17 | Hospitalist Progress Note ---
Date of Service June 01, 2022 Assessment & Plan (1) Acute on chronic respiratory failure with hypoxemia: Plan: Pt has history of COPD now with acute RSV, LLL pneumonia, blood cultures pending will treat for CAP with Rocephin and doxycycline duonebs iv solumedrol Pulmonary consultation appreciated Continue supplemental oxygen incentive spirometry Based on pulmonary recommendations we will hold beta blockers and use Cardizem (2) Abnormal ECG: Plan: pt had Afib RVR , has Afib history, on diltiazem gtt ( ER avoiding B Blockers with respiratory distress) very mild elevation of trop maybe demand ischemia from profound hypoxia in the field will trend troponins add low dose asprin to atorvastatin Based on pulmonary recommendation we will use Cardizem for rate control and hold beta-blockers (3) Hypokalemia: Plan: repelte and also given magmesium, this maybe also influencing afib RVR (4) Atrial fibrillation with rapid ventricular response: Plan: curretly on diltiazem gtt, typically on metoprolol 75 bid and apixiban (5) CAD (coronary artery disease): Plan: starting low dose aspirin, continuing metoprolol and isosorbide, htn treatment with also losartain and lasix (6) Pulmonary hypertension: Plan: Monitor input output closely (7) SIADH (syndrome of inappropriate ADH production): Plan: sodium is 133 will follow with illness Plan synthroid for hypothyroidism eliquis for DVT prevention Admission and Anticipated Discharge Date Admission Date: May 29, 2022 Subjective Patient reports slight improvement in symptoms still coughing and has some difficulty mobilizing expectoration Patient receiving chest vest therapy but not fully compliant with flutter valve Still has persistent dyspnea but is improved compared to yesterday Physical Exam Physical Exam: Constitutional: Respiratory distress improved compared to yesterday HEENT: No scleral injection or discharge. Neck: Supple without lymphadenopathy or thyromegaly. Trachea midline. Lungs: Bilateral air entry slightly improved compared to yesterday Cardiac: Normal rhythm. No murmurs.No extremity edema. 2+ distal peripheral pulses. Abdomen:Bowel sounds present. Soft and nondistended. . No guarding MSK: No cyanosis or clubbing. . Skin: No rashes, warm, dry. Neurologic: Grossly intact cranial nerves. Results & Data Results & Data ([facility]) Vital Signs (Past 12 Hours) Vital Signs Temp Pulse Resp BP BP Pulse Ox O2 Del Method 05/31/22 23:03 36.6 C 93 H 22 138/70 96 Nasal Cannula 05/31/22 21:25 Nasal Cannula 05/31/22 20:06 91 H 18 94 Nasal Cannula 05/31/22 19:14 36.6 C 95 H 22 135/75 95 Nasal Cannula 05/31/22 16:29 36.5 C 96 H 23 118/61 92 Nasal Cannula 05/31/22 13:21 103 H 18 94 Nasal Cannula O2 Flow Rate 05/31/22 23:03 4 05/31/22 21:25 2 05/31/22 20:06 1 05/31/22 19:14 1.5 05/31/22 16:29 1.5 05/31/22 13:21 3 PG Care Time/CCT Total # of Minutes Spent Total Time Spent with Patient: Total time spent is greater than 50% in coordination of care (as documented) at patient's floor/unit and/or counseling patient: Coding Level of Care Code 56629 Subseq Hosp Care Lvl 2 Diagnoses Acute on chronic respiratory failure with hypoxemia J96.21 Abnormal ECG R94.31 Hypokalemia E87.6 Atrial fibrillation with rapid ventricular response I48.91 CAD (coronary artery disease) I25.10 Pulmonary hypertension I27.20 SIADH (syndrome of inappropriate ADH production) E22.2
[2022-06-01] MEDS: LEVALBUTEROL HCL 0.63 MG/3 ML NEB NEB SCH ×4 (01:06→19:21)
[2022-06-01] MEDS: IPRATROPIUM BROMIDE NEB SOLN 0.02% 2.5 ML VIAL INH SCH ×4 (01:06→19:21)
[2022-06-01] MEDS: DOXYCYCLINE HYCLATE 100 MG in DEXTROSE 5% 100 ML IV SCH ×2 (02:17→12:45)
[2022-06-01 04:57] LABS: Hematocrit (blood only) 32.4 % (34.1-44.9); Hemoglobin 11.5 g/dl (12.0-16.0); Mean Corpuscular Hemoglobin 33.4 pg (25.0-34.0); Mean Corpuscular Hgb Conc 35.5 g/dL (32.0-36.0); Mean Corpuscular Volume 94.2 fL (80.0-100.0); Mean Platelet Volume 10.4 fL (9.4-12.3); Platelet Count 267 K/uL (130-400); RDW Coefficient of Variation 12.3 % (11.5-14.5); RDW Standard Deviation 42.6 fL (36.4-46.3); Red Blood Count 3.44 M/uL (3.93-5.22); White Blood Count 12.56 K/ul (4.8-10.8)
[2022-06-01 05:20] LABS: Basophils # (auto) 0.02 K/uL (0-0.2); Basophils % (auto) 0.2 %; Echinocytes 1+; Immature Granulocytes # (auto) 0.14 K/uL (0.00-0.02); Immature Granulocytes % (auto) 1.1 %; Lymphocytes # (auto) 0.59 K/uL (1.2-3.4); Lymphocytes % (auto) 4.7 %; Monocytes # (auto) 0.46 K/uL (0.24-0.82); Monocytes % (auto) 3.7 %; Neutrophils # (auto) 11.35 K/uL (1.4-6.5); Neutrophils % (auto) 90.3 %
[2022-06-01 05:23] LABS: BUN Creatinine Ratio 36.8 (10-20); Calcium 7.6 mg/dl (8.5-10.1); Creatinine Clr Calc Pharmacy 79.2 ml/min; Est GFR (African American) 112.7 ml/min; Est GFR (Non-African American) 97.3 ml/min; Magnesium 2.1 mg/dl (1.7-2.4); Potassium 3.5 mmol/L (3.5-5.1)
[2022-06-01] MEDS: FORMOTEROL 20 MCG/2 ML VIAL INH SCH ×2 (07:17→15:25)
[2022-06-01] MEDS: SODIUM CHLOR 7% 4 ML NEB NEB SCH ×2 (07:17→15:26)
[2022-06-01] MEDS: BUDESONIDE 0.5 MG/2 ML VIAL (PULMICORT) NEB SCH ×2 (07:17→15:25)
[2022-06-01] MEDS: ISOSORBIDE MONO EXTENDED REL 30 MG TABCR PO SCH (09:07)
[2022-06-01] MEDS: ATORVASTATIN 40 MG TAB PO SCH (09:07)
[2022-06-01] MEDS: FUROSEMIDE 20 MG TAB PO SCH (09:07)
[2022-06-01] MEDS: methylPREDNISolone 40 MG in SYRINGE 0 ML IV SCH ×2 (09:07→20:52)
[2022-06-01] MEDS: ASPIRIN 81 MG ECTAB PO SCH (09:07)
[2022-06-01] MEDS: LEVOTHYROXINE SODIUM 25 MCG TABLET PO SCH (09:07)
[2022-06-01] MEDS: APIXABAN 2.5 MG TAB PO SCH ×2 (09:08→20:52)
[2022-06-01] MEDS: LOSARTAN POTASSIUM 50 MG TAB PO SCH ×2 (09:08→20:52)
[2022-06-01] MEDS: MONTELUKAST SODIUM 10 MG TABLET PO SCH (09:08)
--- NOTE | 2022-06-01 09:28 | XRay Report ---
XR chest 1V portable CLINICAL HISTORY: f/u TECHNIQUE: Single frontal radiograph of the chest was obtained. Comparison: Comparison is made to chest radiograph 05/29/2022 FINDINGS: No lines and tubes are seen. The cardiomediastinal silhouette is stable. Right lower lung airspace op acity is new from prior exam. Previously noted pulmonary edema has resolved. No evidence of pleural e ffusion or pneumothorax. IMPRESSION: Right lower lung airspace opacity is seen which may represent pneumonia and/or aspiration. Interval r esolution of previously noted interstitial edema. ACT 112: Negative or not required by law. Electronically signed by: Parrish Simons M.D. 06/01/2022 9:26 AM
[2022-06-01] MEDS: METOPROLOL TARTRATE 50 MG TAB PO SCH (09:37)
--- NOTE | 2022-06-01 10:27 | Cardiology Progress Note ---
Date of Service June 01, 2022 Assessment & Plan (1) Atrial fibrillation with rapid ventricular response: Plan: -ventricular response seems appropriate for her clinical state. -metoprolol tartrate discontinue this morning to avoid beta-charlene induced bronchospasm. -will transition from intravenous to oral diltiazem. -continue Eliquis. (2) Acute on chronic respiratory failure with hypoxemia: Plan: -management per primary team and Pulmonary Medicine. (3) CAD (coronary artery disease): Plan: -anomalous LM, 80% distal non dominant LCx, and 50% proximal RCA, January 2020. -continue medical management. Admission and Anticipated Discharge Date Admission Date: May 29, 2022 Subjective The patient is resting comfortably at the bedside without complaints chest discomfort palpitations. Her dyspnea is improving. Physical Exam Physical Exam: In general this is an elderly white female in no acute distress. HEENT exam is negative. Neck is supple with full carotid upstrokes. There no carotid bruits. No jugular venous distention. There is no thyromegaly. Cardiovascular exam reveals an irregularly irregular rhythm with distant heart sounds. There are no obvious murmurs. No S3. Lungs note coarse breath sounds throughout. Abdomen is benign without bruits. Extremities reveal intact radial artery and posterior tibial pulses bilaterally. There is no peripheral edema. Results & Data ([facility]) Vital Signs (Past 12 Hours) Vital Signs Temp Pulse Pulse Resp BP Pulse Ox O2 Del Method 06/01/22 08:00 Nasal Cannula 06/01/22 08:01 36.9 C 96 H 21 168/92 H 91 Nasal Cannula 06/01/22 07:17 105 H 18 94 Nasal Cannula 06/01/22 06:44 20 94 Nasal Cannula 06/01/22 04:00 36.5 C 95 H 18 148/79 H 98 Nasal Cannula 06/01/22 01:34 88 06/01/22 01:07 92 H 20 96 Nasal Cannula 05/31/22 23:03 36.6 C 93 H 22 138/70 96 Nasal Cannula O2 Flow Rate 06/01/22 08:00 1.5 06/01/22 08:01 1.5 06/01/22 07:17 1.5 06/01/22 06:44 2 06/01/22 04:00 4 06/01/22 01:34 06/01/22 01:07 4 01/02/23 23:03 4 Diagnostic Findings clinical staff rn notes atrial fibrillation with a ventricular response of approximately 100 beats per minute. PG Care Time/CCT Total # of Minutes Spent Total Time Spent with Patient: Total time spent is greater than 50% in coordination of care (as documented) at patient's floor/unit and/or counseling patient: Coding Level of Care Code 67983 Subseq Hosp Care Lvl 3 Diagnoses Atrial fibrillation with rapid ventricular response I48.91 Acute on chronic respiratory failure with hypoxemia J96.21 CAD (coronary artery disease) I25.10
[2022-06-01] MEDS: cefTRIAXone SODIUM 2,000 MG in DEXTROSE 5% 50 ML IV SCH (11:30)
[2022-06-01] MEDS: dilTIAZem HCL 30 MG TAB PO SCH ×2 (12:45→20:52)
--- NOTE | 2022-06-01 12:47 | Pulmonology Progress Note ---
Date of Service June 01, 2022 Assessment & Plan (1) RSV infection: (2) Hypoxia: (3) Atrial fibrillation with rapid ventricular response: (4) Asthma-COPD overlap syndrome: Plan -- Acute hypoxic respiratory failure Likely secondary to exacerbation of patient's underlying asthma-COPD from RSV infection A. 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 Right ventricle is normal in size and function mild TR, mild MR -- Ex-smoker Only 4-pack-year smoking history Quit at the age of 22 Encouraged to continue abstinence from smoking Plan: In/out: -1 L +1.7 L since coming to the hospital Continue with hypertonic saline nebulized, budesonide and Perforomist nebulized along with flutter valve and chest vest therapy Continue with diuresis Metoprolol has been changed to diltiazem Case was discussed with RN and RT at bedside Please note the above document was generated using voice recognition software. It may contain grammatical, syntax or spelling errors.Any formal questions or concerns about the content, text or information contained within the body of this dictation should be directly addressed to the provider for clarification. Admission and Anticipated Discharge Date Admission Date: May 29, 2022 Subjective Patient seen and examined at bedside. No acute distress, no adverse events overnight She was sitting on a chair saturating 96-97% on room air. She stated she is feeling better compared to yesterday Has been using chest vest. Still complains of cough and inability to bring it up. No nausea vomiting, fair appetite. No dizziness, no headache. Review of Systems Review of Systems: All systems reviewed & are unremarkable except as noted in Subjective Physical Exam Physical Exam: Constitutional: No acute distress HEENT: EOMI, PERRLA Respiratory system: Decreased air entry bilaterally, no rhonchi, expiratory wheeze bilaterally, positive crackles bilateral lower lobes CVS: S1-S2 positive, no murmurs or gallops Abdomen: Soft, nontender, nondistended, positive bowel sounds x4 Extremities: +2 pulses bilaterally radialis/ dorsalis pedis, no cyanosis, no edema Neuro: Awake alert oriented x3 Psych: Normal mood and affect G/U: No Watts Skin: no rashes, warm and dry Lymphatic: no cervical or axillary lymphadenopathy Results & Data Results & Data ([facility]) Vital Signs (Past 12 Hours) Vital Signs Temp Pulse Pulse Resp BP BP Pulse Ox 06/01/22 12:37 36.3 C L 105 H 24 167/92 H 105 H 06/01/22 12:09 104 H 18 91 06/01/22 08:00 06/01/22 08:01 36.9 C 96 H 21 168/92 H 91 06/01/22 07:17 105 H 18 94 06/01/22 06:44 20 94 06/01/22 04:00 36.5 C 95 H 18 148/79 H 98 06/01/22 01:34 88 06/01/22 01:07 92 H 20 96 O2 Del Method O2 Flow Rate 06/01/22 12:37 Room Air 06/01/22 12:09 Room Air 06/01/22 08:00 Nasal Cannula 1.5 06/01/22 08:01 Nasal Cannula 1.5 06/01/22 07:17 Nasal Cannula 1.5 06/01/22 06:44 Nasal Cannula 2 06/01/22 04:00 Nasal Cannula 4 06/01/22 01:34 06/01/22 01:07 Nasal Cannula 4 Laboratory Results 06/01/22 04:34 06/01/22 04:34 PG Care Time/CCT Total # of Minutes Spent Total Time Spent with Patient: Total time spent is greater than 50% in coordination of care (as documented) at patient's floor/unit and/or counseling patient: Coding Level of Care Code 92423 SUB INP/OBS CARE 2/35MIN Diagnoses RSV infection B33.8 Hypoxia R09.02 Atrial fibrillation with rapid ventricular response I48.91 Asthma-COPD overlap syndrome J44.9
--- NOTE | 2022-06-01 14:25 | Hospitalist Progress Note ---
Date of Service June 01, 2022 Assessment & Plan (1) Acute on chronic respiratory failure with hypoxemia: Plan: Pt has history of COPD now with acute RSV, LLL pneumonia, blood cultures pending will treat for CAP with Rocephin and doxycycline duonebs iv solumedrol Pulmonary consultation appreciated Continue supplemental oxygen incentive spirometry Based on pulmonary recommendations we will hold beta blockers and use Cardizem Changed to oral Cardizem at this time (2) Abnormal ECG: Plan: pt had Afib RVR , has Afib history, on diltiazem gtt ( ER avoiding B Blockers with respiratory distress) very mild elevation of trop maybe demand ischemia from profound hypoxia in the field will trend troponins add low dose asprin to atorvastatin Based on pulmonary recommendation we will use Cardizem for rate control and hold beta-blockers (3) Hypokalemia: Plan: repelte and also given magmesium, this maybe also influencing afib RVR (4) Atrial fibrillation with rapid ventricular response: Plan: curretly on diltiazem gtt, typically on metoprolol 75 bid and apixiban (5) CAD (coronary artery disease): Plan: starting low dose aspirin, continuing metoprolol and isosorbide, htn treatment with also losartain and lasix (6) Pulmonary hypertension: Plan: Monitor input output closely (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 Physical Exam Physical Exam: Constitutional: Respiratory distress improved compared to yesterday HEENT: No scleral injection or discharge. Neck: Supple without lymphadenopathy or thyromegaly. Trachea midline. Lungs: Bilateral air entry slightly improved compared to yesterday Cardiac: Normal rhythm. No murmurs.No extremity edema. Abdomen:Bowel sounds present. Soft and nondistended. . No guarding MSK: No cyanosis or clubbing. . Skin: No rashes, warm, dry. Neurologic: Grossly intact cranial nerves. Results & Data Results & Data ([facility]) Vital Signs (Past 12 Hours) Vital Signs Temp Pulse Resp BP BP Pulse Ox O2 Del Method 06/01/22 12:37 36.3 C L 105 H 24 167/92 H 105 H Room Air 06/01/22 12:09 104 H 18 91 Room Air 06/01/22 08:00 Nasal Cannula 06/01/22 08:01 36.9 C 96 H 21 168/92 H 91 Nasal Cannula 06/01/22 07:17 105 H 18 94 Nasal Cannula 06/01/22 06:44 20 94 Nasal Cannula 06/01/22 04:00 36.5 C 95 H 18 148/79 H 98 Nasal Cannula O2 Flow Rate 06/01/22 12:37 06/01/22 12:09 06/01/22 08:00 1.5 06/01/22 08:01 1.5 06/01/22 07:17 1.5 06/01/22 06:44 2 06/01/22 04:00 4 PG Care Time/CCT Total # of Minutes Spent Total Time Spent with Patient: Total time spent is greater than 50% in coordination of care (as documented) at patient's floor/unit and/or counseling patient: Coding Level of Care Code 45754 SUB INP/OBS CARE 35 MIN Diagnoses Acute on chronic respiratory failure with hypoxemia J96.21 Abnormal ECG R94.31 Hypokalemia E87.6 Atrial fibrillation with rapid ventricular response I48.91 CAD (coronary artery disease) I25.10 Pulmonary hypertension I27.20 SIADH (syndrome of inappropriate ADH production) E22.2
[2022-06-01] MEDS: ZOLPIDEM TARTRATE 5 MG TAB PO SCH (21:29)
[2022-06-01] MEDS: POLYETHYLENE (MIRALAX) 17 GM PACK PO PRN (22:26)
[2022-06-02] MEDS: LEVALBUTEROL HCL 0.63 MG/3 ML NEB NEB SCH ×4 (00:26→19:54)
[2022-06-02] MEDS: IPRATROPIUM BROMIDE NEB SOLN 0.02% 2.5 ML VIAL INH SCH ×4 (00:26→20:00)
[2022-06-02] MEDS: DOXYCYCLINE HYCLATE 100 MG in DEXTROSE 5% 100 ML IV SCH ×2 (01:00→12:26)
[2022-06-02 06:24] LABS: Basophils # (auto) 0.02 K/uL (0-0.2); Basophils % (auto) 0.2 %; Hematocrit (blood only) 35.2 % (34.1-44.9); Hemoglobin 12.6 g/dl (12.0-16.0); Immature Granulocytes # (auto) 0.17 K/uL (0.00-0.02); Immature Granulocytes % (auto) 1.5 %; Lymphocytes # (auto) 0.63 K/uL (1.2-3.4); Lymphocytes % (auto) 5.4 %; Mean Corpuscular Hemoglobin 33.2 pg (25.0-34.0); Mean Corpuscular Hgb Conc 35.8 g/dL (32.0-36.0); Mean Corpuscular Volume 92.6 fL (80.0-100.0); Mean Platelet Volume 10.1 fL (9.4-12.3); Monocytes # (auto) 0.59 K/uL (0.24-0.82); Neutrophils # (auto) 10.29 K/uL (1.4-6.5); Neutrophils % (auto) 87.9 %; Platelet Count 289 K/uL (130-400); RDW Coefficient of Variation 11.9 % (11.5-14.5); RDW Standard Deviation 40.7 fL (36.4-46.3)
[2022-06-02 06:43] LABS: Calcium 7.8 mg/dl (8.5-10.1); Creatinine Clr Calc Pharmacy 60.2 ml/min; Est GFR (Non-African American) 88.9 ml/min; Potassium 3.1 mmol/L (3.5-5.1)
[2022-06-02] MEDS: FORMOTEROL 20 MCG/2 ML VIAL INH SCH ×2 (07:13→19:54)
[2022-06-02] MEDS: BUDESONIDE 0.5 MG/2 ML VIAL (PULMICORT) NEB SCH ×2 (07:13→19:54)
[2022-06-02] MEDS: SODIUM CHLOR 7% 4 ML NEB NEB SCH ×2 (07:13→19:54)
[2022-06-02] MEDS: dilTIAZem HCL 30 MG TAB PO SCH (08:04)
[2022-06-02] MEDS: methylPREDNISolone 40 MG in SYRINGE 0 ML IV SCH ×2 (08:04→21:12)
[2022-06-02] MEDS: LOSARTAN POTASSIUM 50 MG TAB PO SCH ×2 (08:05→21:12)
[2022-06-02] MEDS: ASPIRIN 81 MG ECTAB PO SCH (08:05)
[2022-06-02] MEDS: APIXABAN 2.5 MG TAB PO SCH ×2 (08:05→21:12)
[2022-06-02] MEDS: ISOSORBIDE MONO EXTENDED REL 30 MG TABCR PO SCH (08:06)
[2022-06-02] MEDS: FUROSEMIDE 20 MG TAB PO SCH (08:06)
[2022-06-02] MEDS: ATORVASTATIN 40 MG TAB PO SCH (08:06)
[2022-06-02] MEDS: LEVOTHYROXINE SODIUM 25 MCG TABLET PO SCH (08:06)
[2022-06-02] MEDS: MONTELUKAST SODIUM 10 MG TABLET PO SCH (08:06)
--- NOTE | 2022-06-02 09:58 | Pulmonology Progress Note ---
Date of Service June 02, 2022 Assessment & Plan (1) RSV infection: (2) Hypoxia: (3) Atrial fibrillation with rapid ventricular response: (4) Asthma-COPD overlap syndrome: Plan -- Acute hypoxic respiratory failure Likely secondary to exacerbation of patient's underlying asthma-COPD from RSV infection A. 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 Right ventricle is normal in size and function mild TR, mild MR -- Ex-smoker Only 4-pack-year smoking history Quit at the age of 22 Encouraged to continue abstinence from smoking --A. fib Beta-charlene has been changed to diltiazem Given the heart rate might need to increase the dose. Will defer to hospitalist team Plan: In/out: -1.3 L + 300 mL since coming to the hospital Continue with hypertonic saline nebulized, budesonide and Perforomist nebulized along with flutter valve and chest vest therapy Continue with diuresis Case was discussed with RN at bedside Please note the above document was generated using voice recognition software. It may contain grammatical, syntax or spelling errors.Any formal questions or concerns about the content, text or information contained within the body of this dictation should be directly addressed to the provider for clarification. Admission and Anticipated Discharge Date Admission Date: May 29, 2022 Subjective Patient seen and examined at bedside. No acute distress, no adverse events overnight Patient's heart rate was in the 140s when I saw her saturation being in the 94- 95% at room air. She was just put on the chair from the bed. Overall she says she is feeling better. She is has been using flutter valve, chest vest as well as CoughAssist. Able to bring up a little bit of phlegm. Denies any chest pain. No headache, no dizziness. Review of Systems Review of Systems: All systems reviewed & are unremarkable except as noted in Subjective Physical Exam Physical Exam: Constitutional: No acute distress HEENT: EOMI, PERRLA Respiratory system: Decreased air entry bilaterally, no rhonchi, no wheeze, positive crackles bilateral lower lobes CVS: S1-S2 positive, no murmurs or gallops Abdomen: Soft, nontender, nondistended, positive bowel sounds x4 Extremities: +2 pulses bilaterally radialis/ dorsalis pedis, no cyanosis, no edema Neuro: Awake alert oriented x3 Psych: Normal mood and affect G/U: No Watts Skin: no rashes, warm and dry Lymphatic: no cervical or axillary lymphadenopathy Results & Data Results & Data ([facility]) Vital Signs (Past 12 Hours) Vital Signs Temp Pulse Pulse Resp BP BP Pulse Ox 06/02/22 09:46 133 H 171/101 H 92 06/02/22 08:00 06/02/22 07:54 36.4 C L 118 H 16 192/110 H 196/109 H 92 06/02/22 07:13 112 H 18 92 06/02/22 02:59 36.3 C L 116 H 19 158/99 H 95 06/02/22 00:50 107 H 06/02/22 00:27 85 18 92 06/01/22 23:22 36.4 C L 106 H 18 158/96 H 91 O2 Del Method O2 Flow Rate 06/02/22 09:46 Room Air 06/02/22 08:00 Room Air 06/02/22 07:54 Room Air 06/02/22 07:13 Nasal Cannula 1 06/02/22 02:59 Nasal Cannula 06/02/22 00:50 06/02/22 00:27 Room Air 06/01/22 23:22 Room Air Laboratory Results 06/02/22 06:13 06/02/22 06:13 PG Care Time/CCT Total # of Minutes Spent Total Time Spent with Patient: Total time spent is greater than 50% in coordination of care (as documented) at patient's floor/unit and/or counseling patient: Coding Level of Care Code 49627 SUB INP/OBS CARE 235MIN Diagnoses RSV infection B33.8 Hypoxia R09.02 Atrial fibrillation with rapid ventricular response I48.91 Asthma-COPD overlap syndrome J44.9
[2022-06-02] MEDS ORDERED: POTASSIUM CHLORIDE CRTAB 20 MEQ TABCR PO STA (10:12)
[2022-06-02] MEDS: POTASSIUM CHLORIDE / WTR 10 MEQ/100 ML PLCT IV SCH ×2 (10:24→11:27)
[2022-06-02] MEDS: cefTRIAXone SODIUM 2,000 MG in DEXTROSE 5% 50 ML IV SCH (11:40)
[2022-06-02] MEDS: dilTIAZem HCl 60 MG TAB PO SCH ×2 (14:18→21:11)
--- NOTE | 2022-06-02 14:32 | Cardiology Progress Note ---
Date of Service June 02, 2022 Assessment & Plan (1) Atrial fibrillation with rapid ventricular response: Plan: -ventricular response remains elevated. -diltiazem dose increased this afternoon. -metoprolol tartrate discontinued to avoid beta-charlene induced bronchospasm. -continue Eliquis. (2) Acute on chronic respiratory failure with hypoxemia: Plan: -management per primary team and Pulmonary Medicine. (3) CAD (coronary artery disease): Plan: -anomalous LM, 80% distal non dominant LCx, and 50% proximal RCA, January 2020. -continue medical management. Admission and Anticipated Discharge Date Admission Date: May 29, 2022 Subjective The patient is resting comfortably in the bedside chair without complaints of chest pain or palpitations. Her dyspnea is improving. Physical Exam Physical Exam: In general this is an elderly white female in no acute di stress. HEENT exam is negative. Neck is supple with full carotid upstrokes. There no carotid bruits. No jugular venous distention. There is no thyromegaly. Cardiovascular exam reveals an irregularly irregular rhythm with distant heart sounds. There are no obvious murmurs. No S3. Lungs are clear without rales, rhonchi, or wheezes. Abdomen is benign without bruits. Extremities reveal intact radial artery and posterior tibial pulses bilaterally. There is no peripheral edema. Results & Data ([facility]) Vital Signs (Past 12 Hours) Vital Signs Temp Pulse Resp BP BP Pulse Ox O2 Del Method 06/02/22 13:55 112 H 20 91 Room Air 06/02/22 12:09 36.5 C 110 H 16 159/99 H 92 Room Air 06/02/22 09:46 133 H 171/101 H 92 Room Air 06/02/22 08:00 Room Air 06/02/22 07:54 36.4 C L 118 H 16 192/110 H 196/109 H 92 Room Air 06/02/22 07:13 112 H 18 92 Nasal Cannula 06/02/22 02:59 36.3 C L 116 H 19 158/99 H 95 Nasal Cannula O2 Flow Rate 06/02/22 13:55 06/02/22 12:09 06/02/22 09:46 06/02/22 08:00 06/02/22 07:54 06/02/22 07:13 1 06/02/22 02:59 Diagnostic Findings panel monitor notes atrial fibrillation with a rapid ventricular response. PG Care Time/CCT Total # of Minutes Spent Total Time Spent with Patient: Total time spent is greater than 50% in coordination of care (as documented) at patient's floor/unit and/or counseling patient: Coding Level of Care Code 35530 SUB INP/OBS CARE 3/50MIN Diagnoses Atrial fibrillation with rapid ventricular response I48.91 Acute on chronic respiratory failure with hypoxemia J96.21 CAD (coronary artery disease) I25.10
--- NOTE | 2022-06-02 16:28 | Hospitalist Progress Note ---
Date of Service June 02, 2022 Assessment & Plan (1) Acute on chronic respiratory failure with hypoxemia: Plan: * Pt has history of COPD now with acute RSV, LLL pneumonia * Continue with Rocephin and doxycycline * Duonebs * iv solumedrol * Pulmonary consultation appreciated * Continue supplemental oxygen * incentive spirometry (2) Abnormal ECG: Plan: * pt had Afib RVR , has Afib history, on diltiazem gtt ( ER avoiding B Blockers with respiratory distress) * very mild elevation of trop maybe demand ischemia from profound hypoxia in the field * add low dose asprin to atorvastatin * Based on pulmonary recommendation we will use Cardizem for rate control and hold beta-blockers (3) Hypokalemia: Plan: Replete and also given magnesium, this maybe also influencing afib RVR (4) Atrial fibrillation with rapid ventricular response: Plan: * With continued tachycardia throughout the day. * Increased Cardizem to 60 TID (5) CAD (coronary artery disease): Plan: * ASCVD Rx per her typical when appropriate. 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 She reports that her shortness of breath is improved, but she does have shortness of breath on exertion alone. She has been utilizing her incentive spirometer and flutter valve. Heart rates remain elevated as is blood pressure. Orders placed to increase her Cardizem. Review of Systems Review of Systems: A complete 10 point review of systems was reviewed with the patient with pertinent positives and negatives as per history of present illness. All else were negative. Physical Exam Physical Exam: VITAL SIGNS - Vital signs and nursing notes were reviewed. GENERAL - 86-year-old female appearing her stated age who is in no acute distress. Communicates well with provider and answers questions appropriately. LUNGS - Distant breath sounds. Coarse. CARDIAC - Irregularly irregular rhythm. ABDOMEN - Abdominal contour flat without pulsations or visible masses. BS normoactive all four quadrants. No tenderness, palpable masses, hepatosplenomegaly, or ascites noted. EXTREMITIES - No clubbing or peripheral cyanosis. No pretibial edema present. +3/5 radial and dorsalis pedis pulses palpated throughout. +4/5 strength noted in UE/LE bilaterally. NEUROLOGIC - Cranial nerves II through XII grossly intact. PSYCH - A&Ox3 and cooperates fully with examiner. Pt is very pleasant and interacts well with examiner. Results & Data Results & Data ([facility]) Vital Signs (Past 12 Hours) Vital Signs Temp Pulse Resp BP BP Pulse Ox O2 Del Method 06/02/22 15:47 36.8 C 112 H 24 163/96 H 91 Room Air 06/02/22 13:55 112 H 20 91 Room Air 06/02/22 12:09 36.5 C 110 H 16 159/99 H 92 Room Air 06/02/22 09:46 133 H 171/101 H 92 Room Air 06/02/22 08:00 Room Air 06/02/22 07:54 36.4 C L 118 H 16 192/110 H 196/109 H 92 Room Air 06/02/22 07:13 112 H 18 92 Nasal Cannula O2 Flow Rate 06/02/22 15:47 06/02/22 13:55 06/02/22 12:09 06/02/22 09:46 06/02/22 08:00 06/02/22 07:54 06/02/22 07:13 1
[2022-06-02] MEDS: POLYETHYLENE (MIRALAX) 17 GM PACK PO PRN (21:22)
[2022-06-02] MEDS: ZOLPIDEM TARTRATE 5 MG TAB PO SCH (22:13)
[2022-06-03] MEDS: LEVALBUTEROL HCL 0.63 MG/3 ML NEB NEB SCH ×4 (00:51→19:44)
[2022-06-03] MEDS: IPRATROPIUM BROMIDE NEB SOLN 0.02% 2.5 ML VIAL INH SCH ×4 (00:51→19:44)
[2022-06-03] MEDS: DOXYCYCLINE HYCLATE 100 MG in DEXTROSE 5% 100 ML IV SCH ×2 (01:07→12:57)
[2022-06-03] MEDS: guaiFENesin/CODEINE 100MG/10MG 5ML UDC PO PRN (04:33)
[2022-06-03 06:24] LABS: Basophils # (auto) 0.02 K/uL (0-0.2); Basophils % (auto) 0.2 %; Hematocrit (blood only) 36.6 % (34.1-44.9); Hemoglobin 13.1 g/dl (12.0-16.0); Immature Granulocytes # (auto) 0.19 K/uL (0.00-0.02); Immature Granulocytes % (auto) 1.9 %; Lymphocytes # (auto) 0.59 K/uL (1.2-3.4); Lymphocytes % (auto) 5.8 %; Mean Corpuscular Hemoglobin 32.7 pg (25.0-34.0); Mean Corpuscular Hgb Conc 35.8 g/dL (32.0-36.0); Mean Corpuscular Volume 91.3 fL (80.0-100.0); Mean Platelet Volume 10.1 fL (9.4-12.3); Monocytes % (auto) 5.9 %; Neutrophils % (auto) 86.2 %; Platelet Count 308 K/uL (130-400); RDW Coefficient of Variation 11.9 % (11.5-14.5); RDW Standard Deviation 40.1 fL (36.4-46.3); Red Blood Count 4.01 M/uL (3.93-5.22)
[2022-06-03 06:55] LABS: BUN Creatinine Ratio 35.4 (10-20); Calcium 7.7 mg/dl (8.5-10.1); Creatinine Clr Calc Pharmacy 62.7 ml/min; Est GFR (African American) 104.4 ml/min; Est GFR (Non-African American) 90.1 ml/min; Magnesium 1.9 mg/dl (1.7-2.4); Phosphorus 3.3 mg/dl (2.5-4.9); Potassium 3.6 mmol/L (3.5-5.1)
[2022-06-03] MEDS: FORMOTEROL 20 MCG/2 ML VIAL INH SCH ×2 (07:46→19:50)
[2022-06-03] MEDS: BUDESONIDE 0.5 MG/2 ML VIAL (PULMICORT) NEB SCH ×2 (07:46→19:44)
[2022-06-03] MEDS: SODIUM CHLOR 7% 4 ML NEB NEB SCH ×2 (07:46→19:44)
[2022-06-03] MEDS: ISOSORBIDE MONO EXTENDED REL 30 MG TABCR PO SCH (08:34)
[2022-06-03] MEDS: LEVOTHYROXINE SODIUM 25 MCG TABLET PO SCH (08:34)
[2022-06-03] MEDS: ASPIRIN 81 MG ECTAB PO SCH (08:34)
[2022-06-03] MEDS: FUROSEMIDE 20 MG TAB PO SCH (08:34)
[2022-06-03] MEDS: MONTELUKAST SODIUM 10 MG TABLET PO SCH (08:35)
[2022-06-03] MEDS: ATORVASTATIN 40 MG TAB PO SCH (08:35)
[2022-06-03] MEDS: LOSARTAN POTASSIUM 50 MG TAB PO SCH ×2 (09:23→21:53)
[2022-06-03] MEDS: APIXABAN 2.5 MG TAB PO SCH ×2 (09:23→21:52)
[2022-06-03] MEDS: dilTIAZem HCl 60 MG TAB PO SCH ×2 (09:23→13:57)
[2022-06-03] MEDS: methylPREDNISolone 40 MG in SYRINGE 0 ML IV SCH (09:24)
--- NOTE | 2022-06-03 10:29 | Cardiology Progress Note ---
Date of Service June 03, 2022 Assessment & Plan (1) Atrial fibrillation with rapid ventricular response: Plan: -ventricular response remains somewhat elevated. -consider increasing diltiazem to 90 mg t.i.d. -consider addition of intravenous followed by oral digoxin. -consider Re initiating metoprolol as she has been stable on this medication for the long-term. -continue Eliquis. (2) Acute on chronic respiratory failure with hypoxemia: Plan: -management per primary team and Pulmonary Medicine. (3) CAD (coronary artery disease): Plan: -anomalous LM, 80% distal non dominant LCx, and 50% proximal RCA, January 2020. -continue medical management. Admission and Anticipated Discharge Date Admission Date: May 29, 2022 Subjective The patient is resting comfortably in bedside chair without complaints of chest pain or palpitations. Her dyspnea continues to improve. Physical Exam Physical Exam: In general this is an elderly white female in no acute distress. HEENT exam is negative. Neck is supple with full carotid upstrokes. There no carotid bruits. No jugular venous distention. There is no thyromegaly. Cardiovascular exam reveals an irregularly irregular rhythm with distant heart sounds. There are no obvious murmurs. No S3. Lungs are clear without rales or rhonchi. An occasional wheezes noted. Abdomen is benign without bruits. Extremities reveal intact radial artery and posterior tibial pulses bilaterally. There is no peripheral edema. Results & Data ([facility]) Vital Signs (Past 12 Hours) Vital Signs Temp Pulse Pulse Resp BP BP Pulse Ox 06/03/22 07:55 36.6 C 108 H 18 178/92 H 90 06/03/22 07:47 115 H 18 92 06/03/22 07:46 95 H 06/03/22 03:16 36.3 C L 106 H 18 167/88 H 90 06/03/22 00:53 94 H 18 92 06/03/22 00:05 141/86 H 06/02/22 22:54 36.5 C 106 H 18 90 O2 Del Method 06/03/22 07:55 Room Air 06/03/22 07:47 Room Air 06/03/22 07:46 06/03/22 03:16 Room Air 06/03/22 00:53 Room Air 06/03/22 00:05 06/02/22 22:54 Room Air Diagnostic Findings clinical research monitor notes atrial fibrillation with a ventricular response of approximately 100 beats per minute. PG Care Time/CCT Total # of Minutes Spent Total Time Spent with Patient: Total time spent is greater than 50% in coordination of care (as documented) at patient's floor/unit and/or counseling patient: Coding Level of Care Code 47799 SUB INP/OBS CARE 3/50MIN Diagnoses Atrial fibrillation with rapid ventricular response I48.91 Acute on chronic respiratory failure with hypoxemia J96.21 CAD (coronary artery disease) I25.10
--- NOTE | 2022-06-03 10:38 | Hospitalist Progress Note ---
Date of Service June 03, 2022 Assessment & Plan (1) Acute on chronic respiratory failure with hypoxemia: Plan: * Pt has history of COPD now with acute RSV, LLL pneumonia * Continue with Rocephin and doxycycline * Duonebs * iv solumedrol tapering dose per pulmonary * Pulmonary consultation appreciated * Continue supplemental oxygen * incentive spirometry (2) Abnormal ECG: Plan: * pt had Afib RVR , has Afib history, on diltiazem gtt ( ER avoiding B Blockers with respiratory distress) * very mild elevation of trop maybe demand ischemia from profound hypoxia in the field * add low dose asprin to atorvastatin * Difficulty controlling rate with Cardizem alone with discussion of possibly needing an additional agent such as digoxin. Decision was made to test dose beta-charlene in the afternoon of 06/03 without evidence of respiratory decline subsequently we will add 25 twice daily in the evening and will reassess in the morning (3) Hypokalemia: Plan: Replete (4) Atrial fibrillation with rapid ventricular response: Plan: * With continued tachycardia throughout the day. * Increased Cardizem to 90 TID * Added back metoprolol 25 twice daily (5) CAD (coronary artery disease): Plan: * ASCVD Rx per her typical when appropriate. 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 She had no decline in her respiratory event. The patient was having escalating needs for rate control with other agents and metoprolol and initially metoprolol was held for concern of lung disease however the patient was on metoprolol for many years with good control of her atrial fibrillation rate. Subsequently decision was made to give her a test dose of metoprolol tartrate this afternoon when she tolerated very well subsequently we will restart her metoprolol twice daily a lower dose that she continues to be on diltiazem. After conversation with cardiology in the morning of 06/04 we may transition back to metoprolol and hopefully relieve the escalation of diltiazem need. Review of Systems Review of Systems: Mild distress and fatigue no headache, no visual changes no speech or swallowing issues no chest pain, pressure patient cannot sense her palpitations Patient still some but breathless when she walks her cough is reduced with only being occasionally now nonproductive no abdominal pain, nausea or vomiting, diarrhea or constipation no dysuria, hematuria or frequency no focal joint pain or swelling no back pain, CVA tenderness or radicular pain no bruising, bleeding or rashes no focal signs of weakness or numbness or altered sensation no complaints of anxiety or depression.. Physical Exam Physical Exam: The patient appeared well nourished and normally developed. Vital signs as documented. Head exam is normocephalic atraumatic Neck is without JVD, thyromegaly, or carotid bruits. Lungs are coarse at the bases diminished air movement Cardiac exam, Rhythm is irregularly irregular with rates in the low 100s.. Abdominal exam reveals normal bowel sounds, soft non tender, no masses Extremities are nonedematous and both pedal pulses are present Neurologic exam is alert and oriented, no focal loss of strength or sensation Skin is without bruises or rashes Psychologically is without concerns for anxiety or depression.. Results & Data Results & Data ([facility]) Vital Signs (Past 12 Hours) Vital Signs Temp Pulse Pulse Resp BP BP Pulse Ox 06/03/22 07:55 97.9 F 108 H 18 178/92 H 90 06/03/22 07:47 115 H 18 92 06/03/22 07:46 95 H 06/03/22 03:16 97.3 F L 106 H 18 167/88 H 90 06/03/22 00:53 94 H 18 92 06/03/22 00:05 141/86 H 06/02/22 22:54 97.7 F 106 H 18 90 O2 Del Method 06/03/22 07:55 Room Air 06/03/22 07:47 Room Air 06/03/22 07:46 06/03/22 03:16 Room Air 06/03/22 00:53 Room Air 06/03/22 00:05 06/02/22 22:54 Room Air PG Care Time/CCT Total # of Minutes Spent Total Time Spent with Patient: Total time spent is greater than 50% in coordination of care (as documented) at patient's floor/unit and/or counseling patient: Coding Level of Care Code 91205 SUB INP/OBS CARE 3/50MIN Diagnoses Acute on chronic respiratory failure with hypoxemia J96.21 Abnormal ECG R94.31 Hypokalemia E87.6 Atrial fibrillation with rapid ventricular response I48.91 CAD (coronary artery disease) I25.10 Pulmonary hypertension I27.20 SIADH (syndrome of inappropriate ADH production) E22.2
[2022-06-03] MEDS: cefTRIAXone SODIUM 2,000 MG in DEXTROSE 5% 50 ML IV SCH (11:33)
--- NOTE | 2022-06-03 14:35 | Pulmonology Progress Note ---
Date of Service June 03, 2022 Assessment & Plan (1) RSV infection: (2) Hypoxia: (3) Atrial fibrillation with rapid ventricular response: (4) Asthma-COPD overlap syndrome: Plan -- Acute hypoxic respiratory failure Likely secondary to exacerbation of patient's underlying asthma-COPD from RSV infection A. 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 Right ventricle is normal in size and function mild TR, mild MR -- Ex-smoker Only 4-pack-year smoking history Quit at the age of 22 Encouraged to continue abstinence from smoking --A. fib Beta-charlene has been changed to diltiazem Given the heart rate might need to increase the dose. Will defer to hospitalist team Plan: In/out: -260ml ,+ 300 mL since coming to the hospital Decreased Solu-Medrol to 40 mg on a daily basis. Can transition to p.o. prednisone tomorrow. 40 mg for 3 days followed by 20 mg for 3 days and then stop. Continue with hypertonic saline nebulized, budesonide and Perforomist nebulized along with flutter valve and chest vest therapy Continue with hypertonic saline nebulized therapy even on discharge Repeat chest x-ray in the morning Continue with diuresis Please note the above document was generated using voice recognition software. It may contain grammatical, syntax or spelling errors.Any formal questions or concerns about the content, text or information contained within the body of this dictation should be directly addressed to the provider for clarification. Admission and Anticipated Discharge Date Admission Date: May 29, 2022 Subjective Patient seen and examined at bedside. No acute distress, no adverse events overnight She was saturating 97% on room air with heart rate of 108 at the time of examination Denied any chest pain. She says that her phlegm is loosening up and she is able to bring it up. Shortness of breath is improved. Denies any headache, no nausea vomiting Fair appetite. Is feeling more energetic today Review of Systems Review of Systems: All systems reviewed & are unremarkable except as noted in Subjective Physical Exam Physical Exam: Constitutional: No acute distress HEENT: EOMI, PERRLA Respiratory system: Decreased air entry bilaterally, no rhonchi, no wheeze, positive crackles bilateral lower lobes CVS: S1-S2 positive, no murmurs or gallops Abdomen: Soft, nontender, nondistended, positive bowel sounds x4 Extremities: +2 pulses bilaterally radialis/ dorsalis pedis, no cyanosis, no edema Neuro: Awake alert oriented x3 Psych: Normal mood and affect G/U: No Watts Skin: no rashes, warm and dry Lymphatic: no cervical or axillary lymphadenopathy Results & Data Results & [facility] ([facility]) Vital Signs (Past 12 Hours) Vital Signs Temp Pulse Pulse Resp BP BP Pulse Ox 06/03/22 13:19 105 H 18 91 06/03/22 12:00 36.3 C L 109 H 19 155/94 H 90 06/03/22 07:30 06/03/22 07:55 36.6 C 108 H 18 178/92 H 90 06/03/22 07:47 115 H 18 92 06/03/22 07:46 95 H 06/03/22 03:16 36.3 C L 106 H 18 167/88 H 90 O2 Del Method 06/03/22 13:19 Room Air 06/03/22 12:00 Room Air 06/03/22 07:30 Room Air 06/03/22 07:55 Room Air 06/03/22 07:47 Room Air 06/03/22 07:46 06/03/22 03:16 Room Air Laboratory Results 06/03/22 06:09 06/03/22 06:09 PG Care Time/CCT Total # of Minutes Spent Total Time Spent with Patient: Total time spent is greater than 50% in coordination of care (as documented) at patient's floor/unit and/or counseling patient: Coding Level of Care Code 99015 SUB INP/OBS CARE 2/35MIN Diagnoses RSV infection B33.8 Hypoxia R09.02 Atrial fibrillation with rapid ventricular response I48.91 Asthma-COPD overlap syndrome J44.9
[2022-06-03] MEDS ORDERED: dilTIAZem HCL 30 MG TAB PO STA (15:36)
[2022-06-03] MEDS ORDERED: METOPROLOL TARTRATE 25 MG TAB PO SCH (21:00)
[2022-06-03] MEDS ORDERED: dilTIAZem HCL 30 MG TAB PO SCH (21:00)
[2022-06-03] MEDS: ZOLPIDEM TARTRATE 5 MG TAB PO SCH (21:49)
[2022-06-03] MEDS: POLYETHYLENE (MIRALAX) 17 GM PACK PO PRN (22:01)
[2022-06-04] MEDS: DOXYCYCLINE HYCLATE 100 MG in DEXTROSE 5% 100 ML IV SCH ×2 (02:16→15:36)
[2022-06-04] MEDS: LEVALBUTEROL HCL 0.63 MG/3 ML NEB NEB SCH ×4 (04:00→20:02)
[2022-06-04] MEDS: IPRATROPIUM BROMIDE NEB SOLN 0.02% 2.5 ML VIAL INH SCH ×4 (04:00→20:02)
--- NOTE | 2022-06-04 07:34 | Pulmonology Progress Note ---
Date of Service June 04, 2022 Assessment & Plan (1) RSV infection: (2) Hypoxia: (3) Atrial fibrillation with rapid ventricular response: (4) Asthma-COPD overlap syndrome: Plan -- Acute hypoxic respiratory failure Likely secondary to exacerbation of patient's underlying asthma-COPD from RSV infection A. 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 Right ventricle is normal in size and function mild TR, mild MR -- Ex-smoker Only 4-pack-year smoking history Quit at the age of 22 Encouraged to continue abstinence from smoking --A. fib Beta-charlene has been changed to diltiazem Given the heart rate might need to increase the dose. Will defer to hospitalist team Plan: In/out: -1260 ml DC Solu-Medrol. Recommend prednisone taper 40 mg for 3 days followed by 20 mg for 3 days and then stop. Continue with hypertonic saline nebulized along with flutter valve and Mucinex at home. Continue with Trelegy inhaler Continue with diuresis even at home Complete course of antibiotics for total of 10 days Chest x-ray from today shows improvement compared to before. Case was discussed with No further recommendation from my perspective. We will sign off Please call directly with any questions Please note the above document was generated using voice recognition software. It may contain grammatical, syntax or spelling errors.Any formal questions or concerns about the content, text or information contained within the body of this dictation should be directly addressed to the provider for clarification. Admission and Anticipated Discharge Date Admission Date: May 29, 2022 Subjective Patient seen and examined at bedside. No acute distress, no dressings over night. Overall patient is feeling much better. Able to bring up phlegm which has loosened up. Denies any chest pain, no headache, no nausea, no vomiting Fair appetite. Review of Systems Review of Systems: All systems reviewed & are unremarkable except as noted in Subjective Physical Exam Physical Exam: Constitutional: No acute distress HEENT: EOMI, PERRLA Respiratory system: Decreased air entry bilaterally, no rhonchi, no wheeze, positive crackles bilateral lower lobes CVS: S1-S2 positive, no murmurs or gallops Abdomen: Soft, nontender, nondistended, positive bowel sounds x4 Extremities: +2 pulses bilaterally radialis/ dorsalis pedis, no cyanosis, no edema Neuro: Awake alert oriented x3 Psych: Normal mood and affect G/U: No Watts Skin: no rashes, warm and dry Lymphatic: no cervical or axillary lymphadenopathy Results & Data Results & Data ([facility]) Vital Signs (Past 12 Hours) Vital Signs Temp Pulse Pulse Resp BP Pulse Ox O2 Del Method 06/04/22 07:12 36.7 C 94 H 18 172/96 H 93 Room Air 06/04/22 03:05 36.3 C L 85 18 145/61 H 92 Room Air 06/04/22 00:00 95 H 06/03/22 20:00 Room Air 06/03/22 23:08 36.4 C L 95 H 18 151/83 H 95 Room Air 06/03/22 19:44 18 90 Room Air 06/03/22 19:42 36.3 C L 96 H 18 134/75 90 Room Air Laboratory Results 06/03/22 06:09 06/03/22 06:09 PG Care Time/CCT Total # of Minutes Spent Total Time Spent with Patient: Total time spent is greater than 50% in coordination of care (as documented) at patient's floor/unit and/or counseling patient: Coding Level of Care Code 08435 SUB INP/OBS CARE 2/35MIN Diagnoses RSV infection B33.8 Hypoxia R09.02 Atrial fibrillation with rapid ventricular response I48.91 Asthma-COPD overlap syndrome J44.9
[2022-06-04] MEDS: BUDESONIDE 0.5 MG/2 ML VIAL (PULMICORT) NEB SCH ×2 (07:47→17:58)
[2022-06-04] MEDS: FORMOTEROL 20 MCG/2 ML VIAL INH SCH ×2 (07:47→17:58)
[2022-06-04] MEDS: SODIUM CHLOR 7% 4 ML NEB NEB SCH ×2 (07:47→17:57)
[2022-06-04] MEDS ORDERED: dilTIAZem HCl 60 MG TAB PO SCH (09:00)
[2022-06-04] MEDS ORDERED: methylPREDNISolone 40 MG in SYRINGE 0 ML IV SCH (09:00)
[2022-06-04] MEDS ORDERED: METOPROLOL TARTRATE 25 MG TAB PO SCH (09:00)
[2022-06-04] MEDS ORDERED: METOPROLOL TARTRATE 25 MG TAB PO ONE (09:18)
[2022-06-04] MEDS: LOSARTAN POTASSIUM 50 MG TAB PO SCH ×2 (09:34→20:01)
[2022-06-04] MEDS: FUROSEMIDE 20 MG TAB PO SCH (09:34)
[2022-06-04] MEDS: ISOSORBIDE MONO EXTENDED REL 30 MG TABCR PO SCH (09:34)
[2022-06-04] MEDS: ATORVASTATIN 40 MG TAB PO SCH (09:34)
[2022-06-04] MEDS: ASPIRIN 81 MG ECTAB PO SCH (09:34)
[2022-06-04] MEDS: MONTELUKAST SODIUM 10 MG TABLET PO SCH (09:35)
[2022-06-04] MEDS: APIXABAN 2.5 MG TAB PO SCH ×2 (09:35→20:01)
[2022-06-04] MEDS: LEVOTHYROXINE SODIUM 25 MCG TABLET PO SCH (09:35)
--- NOTE | 2022-06-04 09:57 | XRay Report ---
XR chest 1V portable CLINICAL HISTORY: f/u COMPARISON STUDY: Chest radiograph June 01, 2022. 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 There is no pneumothorax. No definite pleural effusion. Right lower lung airspace opacity has significantly improved. Linear le ft basilar opacity reflects atelectasis. Cardiomediastinal silhouette is stable. Pulmonary vascular c ongestion has slightly improved. IMPRESSION: 1. Significant improvement in right lower lung airspace opacity. 2. Interval improvement in pulmonary vascular congestion. ACT 112: Negative or not required by law. Electronically signed by: Reginaldo Barnes M.D. 06/04/2022 9:56 AM
[2022-06-04] MEDS: cefTRIAXone SODIUM 2,000 MG in DEXTROSE 5% 50 ML IV SCH (12:51)
--- NOTE | 2022-06-04 13:47 | Hospitalist Progress Note ---
Date of Service June 04, 2022 Assessment & Plan (1) Acute on chronic respiratory failure with hypoxemia: Plan: Patient presents acute chronic respiratory failure due to influenza and likely rapid atrial fibrillation with mild acute on chronic diastolic heart failure. Influenza is improving currently on room air with low oxygen sats Concern for bronchitis patient remains on ceftriaxone Because of her tachycardia she is only levalbuterol ipratropium and formoterol plus Singulair Cough suppression (2) Atrial fibrillation with rapid ventricular response: Plan: Patient is on aspirin apixaban and typically was rate controlled with metoprolol. Patient should return to her metoprolol dose of tartrate 75 twice daily with continued rapid rate and elevated blood pressure subsequently we changed diltiazem extended release 180 on 06/04/2022 (3) Hypokalemia: Plan: Replete (4) CAD (coronary artery disease): Plan: Continues on aspirin and atorvastatin and isosorbide and secondary risk prevention with hypertension control (5) Pulmonary hypertension: Plan: Patient typically on dose of diuretic for this, certainly contributes to her dyspneic symptomology (6) SIADH (syndrome of inappropriate ADH production): Plan: Sodium is stable 133 Admission and Anticipated Discharge Date Admission Date: May 29, 2022 Subjective pt is still with variable heart rate control and high blood pressure' her issues with influenza A her biggest c/o is ranauds to her feet Review of Systems Review of Systems: Mild distress and fatigue no headache, no visual changes no speech or swallowing issues no chest pain, pressure or palpitations shortness of breath, non productive cough scant wheezes no abdominal pain, nausea or vomiting, diarrhea or constipation no dysuria, hematuria or frequency no focal joint pain or swelling, c/o feet pain no back pain, CVA tenderness or radicular pain no bruising, bleeding or rashes no focal signs of weakness or numbness or altered sensation no complaints of anxiety or depression.. Physical Exam Physical Exam: The patient appeared well nourished and normally developed. she is thin with bmi 21 Vital signs as documented. Head exam is normocephalic atraumatic Neck is without JVD, thyromegaly, or carotid bruits. Lungs are coarse with scant cough Cardiac exam, Rhythm is regular.. No murmurs, rubs or gallops. Abdominal exam reveals normal bowel sounds, soft non tender, no masses Extremities are nonedematous and both pedal pulses are present claims foot pain from Raynauds but not blanching seen on exam Neurologic exam is alert and oriented, no focal loss of strength or sensation Skin is without bruises or rashes Psychologically is without concerns for anxiety or depression.. Results & Data Results & Data ([facility]) Vital Signs (Past 12 Hours) Vital Signs Temp Pulse Pulse Resp BP BP Pulse Ox 06/04/22 12:58 80 18 93 06/04/22 12:32 96.8 F L 86 20 159/106 H 152/94 H 94 06/04/22 07:00 87 06/04/22 07:47 100 H 18 93 06/04/22 07:12 98.1 F 94 H 18 172/96 H 93 06/04/22 03:05 97.3 F L 85 18 145/61 H 92 O2 Del Method 06/04/22 12:58 Room Air 06/04/22 12:32 Room Air 06/04/22 07:00 06/04/22 07:47 Room Air 06/04/22 07:12 Room Air 06/04/22 03:05 Room Air PG Care Time/CCT Total # of Minutes Spent Total Time Spent with Patient: Total time spent is greater than 50% in coordination of care (as documented) at patient's floor/unit and/or counseling patient: Coding Level of Care Code 64849 SUB INP/OBS CARE 3/50MIN Diagnoses Acute on chronic respiratory failure with hypoxemia J96.21 Atrial fibrillation with rapid ventricular response I48.91 Hypokalemia E87.6 CAD (coronary artery disease) I25.10 Pulmonary hypertension I27.20 SIADH (syndrome of inappropriate ADH production) E22.2
[2022-06-04] MEDS: dilTIAZem HCL 180 MG CAPCR PO SCH (14:25)
[2022-06-04] MEDS: METOPROLOL TARTRATE 25 MG TAB PO SCH (20:00)
[2022-06-04] MEDS: ZOLPIDEM TARTRATE 5 MG TAB PO SCH (20:01)
[2022-06-05] MEDS: IPRATROPIUM BROMIDE NEB SOLN 0.02% 2.5 ML VIAL INH SCH ×4 (01:12→19:29)
[2022-06-05] MEDS: LEVALBUTEROL HCL 0.63 MG/3 ML NEB NEB SCH ×4 (01:12→19:29)
[2022-06-05] MEDS: DOXYCYCLINE HYCLATE 100 MG in DEXTROSE 5% 100 ML IV SCH ×2 (01:45→14:25)
[2022-06-05] MEDS: LEVOTHYROXINE SODIUM 25 MCG TABLET PO SCH (05:51)
[2022-06-05] MEDS: BUDESONIDE 0.5 MG/2 ML VIAL (PULMICORT) NEB SCH ×2 (07:08→19:30)
[2022-06-05] MEDS: FORMOTEROL 20 MCG/2 ML VIAL INH SCH ×2 (07:08→19:29)
[2022-06-05] MEDS: SODIUM CHLOR 7% 4 ML NEB NEB SCH ×2 (07:25→19:29)
--- NOTE | 2022-06-05 07:26 | Pulmonology Progress Note ---
Date of Service June 05, 2022 Assessment & Plan (1) RSV infection: (2) Hypoxia: (3) Atrial fibrillation with rapid ventricular response: (4) Asthma-COPD overlap syndrome: Plan -- Acute hypoxic respiratory failure Likely secondary to exacerbation of patient's underlying asthma-COPD from RSV infection A. 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 Right ventricle is normal in size and function mild TR, mild MR -- Ex-smoker Only 4-pack-year smoking history Quit at the age of 22 Encouraged to continue abstinence from smoking --A. fib Beta-charlene has been changed to diltiazem Given the heart rate might need to increase the dose. Will defer to hospitalist team Plan: In/out: -2.7 L Prednisone taper 40 mg for 3 days followed by 20 mg for 3 days and then stop. Continue with hypertonic saline nebulized along with flutter valve and Mucinex at home. Continue with Trelegy inhaler Continue with diuresis even at home Complete course of antibiotics for total of 10 days No further recommendation from my perspective. Please call directly with any questions Case discussed with Dr. Beth Please note the above document was generated using voice recognition software. It may contain grammatical, syntax or spelling errors.Any formal questions or concerns about the content, text or information contained within the body of this dictation should be directly addressed to the provider for clarification. Admission and Anticipated Discharge Date Admission Date: May 29, 2022 Subjective Patient seen and examined at bedside. No acute distress, no adverse events overnight. Overall she is doing better when it comes to her breathing Able to bring phlegm up with the help of flutter valve. Has been using incentive spirometry on an hourly basis Denies any chest pain No fever or chills Fair appetite Review of Systems Review of Systems: All systems reviewed & are unremarkable except as noted in Subjective Physical Exam Physical Exam: Constitutional: No acute distress HEENT: EOMI, PERRLA Respiratory system: Decreased air entry bilaterally, no rhonchi, no wheeze, po sitive crackles bilateral lower lobes CVS: S1-S2 positive, no murmurs or gallops Abdomen: Soft, nontender, nondistended, positive bowel sounds x4 Extremities: +2 pulses bilaterally radialis/ dorsalis pedis, no cyanosis, no edema Neuro: Awake alert oriented x3 Psych: Normal mood and affect G/U: No Watts Skin: no rashes, warm and dry Lymphatic: no cervical or axillary lymphadenopathy Results & Data Results & Data ([facility]) Vital Signs (Past 12 Hours) Vital Signs Temp Pulse Pulse Resp BP Pulse Ox O2 Del Method 06/05/22 07:11 90 18 92 Room Air 06/05/22 02:57 36.5 C 89 18 196/87 H 92 Room Air 06/04/22 23:00 36.8 C 80 18 152/89 H 94 Room Air 06/05/22 01:12 91 H 16 94 Room Air 06/04/22 20:00 75 06/04/22 20:00 Room Air 06/04/22 19:28 36.6 C 112 H 18 152/81 H 89 L Room Air Laboratory Results 06/03/22 06:09 06/03/22 06:09 PG Care Time/CCT Total # of Minutes Spent Total Time Spent with Patient: Total time spent is greater than 50% in coordination of care (as documented) at patient's floor/unit and/or counseling patient: Coding Level of Care Code 34974 SUB INP/OBS CARE 2/35MIN Diagnoses RSV infection B33.8 Hypoxia R09.02 Atrial fibrillation with rapid ventricular response I48.91 Asthma-COPD overlap syndrome J44.9
[2022-06-05] MEDS: ASPIRIN 81 MG ECTAB PO SCH (09:23)
[2022-06-05] MEDS: APIXABAN 2.5 MG TAB PO SCH ×2 (09:23→21:08)
[2022-06-05] MEDS: ATORVASTATIN 40 MG TAB PO SCH (09:23)
[2022-06-05] MEDS: MONTELUKAST SODIUM 10 MG TABLET PO SCH (09:24)
[2022-06-05] MEDS: LOSARTAN POTASSIUM 50 MG TAB PO SCH ×2 (09:24→21:07)
[2022-06-05] MEDS: predniSONE 20 MG TAB PO SCH (09:24)
[2022-06-05] MEDS: ISOSORBIDE MONO EXTENDED REL 30 MG TABCR PO SCH (09:24)
[2022-06-05] MEDS: FUROSEMIDE 20 MG TAB PO SCH (09:24)
[2022-06-05] MEDS: dilTIAZem HCL 180 MG CAPCR PO SCH (09:25)
[2022-06-05] MEDS: METOPROLOL TARTRATE 25 MG TAB PO SCH ×2 (09:25→21:05)
[2022-06-05] MEDS: cefTRIAXone SODIUM 2,000 MG in DEXTROSE 5% 50 ML IV SCH (13:02)
--- NOTE | 2022-06-05 19:00 | Hospitalist Progress Note ---
Date of Service June 05, 2022 Assessment & Plan (1) Acute on chronic respiratory failure with hypoxemia: Plan: Patient presents acute chronic respiratory failure due to influenza and likely rapid atrial fibrillation with mild acute on chronic diastolic heart failure. Influenza is improving currently on room air with low oxygen sats Concern for bronchitis patient remains on ceftriaxone Because of her tachycardia she is only levalbuterol ipratropium and formoterol plus Singulair Cough suppression check CXR (2) Atrial fibrillation with rapid ventricular response: Plan: Patient is on aspirin apixaban and typically was rate controlled with metoprolol. Patient should return to her metoprolol dose of tartrate 75 twice daily with continued rapid rate and elevated blood pressure subsequently we changed diltiazem extended release 180 on 06/04/2022 with good results (3) Hypokalemia: Plan: Replete (4) CAD (coronary artery disease): Plan: Continues on aspirin and atorvastatin and isosorbide and secondary risk prevention with hypertension control (5) Pulmonary hypertension: Plan: Patient typically on dose of diuretic for this, certainly contributes to her dyspneic symptomology (6) SIADH (syndrome of inappropriate ADH production): Plan: Sodium is stable 133 Admission and Anticipated Discharge Date Admission Date: May 29, 2022 Subjective pt feels improved but still feels a bit weakened and deconditioned, c/o foot pain with raynauds has better control of afib rates but still wtih some rales at bases left > right Review of Systems 2 Review of Systems: Mild distress and fatigue no headache, no visual changes no speech or swallowing issues no chest pain, pressure or palpitations shortness of breath, non productive cough scant wheezes no abdominal pain, nausea or vomiting, diarrhea or constipation no dysuria, hematuria or frequency no focal joint pain or swelling, c/o feet pain no back pain, CVA tenderness or radicular pain no bruising, bleeding or rashes no focal signs of weakness or numbness or altered sensation no complaints of anxiety or depression.. Physical Exam Physical Exam: The patient appeared well nourished and normally developed. she is thin with bmi 21 Vital signs as documented. Head exam is normocephalic atraumatic Neck is without JVD, thyromegaly, or carotid bruits. Lungs are coarse with scant cough Cardiac exam, Rhythm is regular.. No murmurs, rubs or gallops. Abdominal exam reveals normal bowel sounds, soft non tender, no masses Extremities are nonedematous and both pedal pulses are present claims foot pain from Raynauds but not blanching seen on exam Neurologic exam is alert and oriented, no focal loss of strength or sensation Skin is without bruises or rashes Psychologically is without concerns for anxiety or depression.. Results & Data Results & Data ([facility]) Vital Signs (Past 12 Hours) Vital Signs Temp Pulse Pulse Resp BP Pulse Ox O2 Del Method 06/05/22 15:00 74 06/05/22 16:06 97.7 F 68 18 102/60 91 Room Air 06/05/22 13:22 75 18 92 Room Air 06/05/22 11:45 97.9 F 69 19 121/74 90 Room Air 06/05/22 07:00 94 H 06/05/22 08:00 97.9 F 88 19 148/82 H 92 Room Air 06/05/22 07:11 90 18 92 Room Air PG Care Time/CCT Total # of Minutes Spent Total Time Spent with Patient: Total time spent is greater than 50% in coordination of care (as documented) at patient's floor/unit and/or counseling patient: Coding Level of Care Code 63390 SUB INP/OBS CARE 2/35MIN Diagnoses Acute on chronic respiratory failure with hypoxemia J96.21 Atrial fibrillation with rapid ventricular response I48.91 Hypokalemia E87.6 CAD (coronary artery disease) I25.10 Pulmonary hypertension I27.20 SIADH (syndrome of inappropriate ADH production) E22.2
[2022-06-05] MEDS: ZOLPIDEM TARTRATE 5 MG TAB PO SCH (22:20)
[2022-06-06] MEDS: IPRATROPIUM BROMIDE NEB SOLN 0.02% 2.5 ML VIAL INH SCH ×3 (01:39→12:48)
[2022-06-06] MEDS: LEVALBUTEROL HCL 0.63 MG/3 ML NEB NEB SCH ×3 (01:39→12:48)
[2022-06-06] MEDS: LEVOTHYROXINE SODIUM 25 MCG TABLET PO SCH (05:35)
[2022-06-06] MEDS: BUDESONIDE 0.5 MG/2 ML VIAL (PULMICORT) NEB SCH (07:16)
[2022-06-06] MEDS: FORMOTEROL 20 MCG/2 ML VIAL INH SCH (07:18)
[2022-06-06] MEDS: SODIUM CHLOR 7% 4 ML NEB NEB SCH (07:36)
--- NOTE | 2022-06-06 08:20 | XRay Report ---
XR chest 2V PA/lateral HISTORY: 86 years-old Female Eval LLL acute chest pain COMPARISON: Chest radiograph June 04, 2022 TECHNIQUE: PA and lateral views of the chest FINDINGS: Cardiomediastinal and hilar silhouettes are within normal limits. No pneumothorax, pleural effusion, airspace consolidation or overt pulmonary edema. Decreased pulmonary vascular congestion. Improved ae ration of the right lung base. Scattered thoracic compression deformities. Degenerative changes of th e shoulders and spine. IMPRESSION: 1. Mild subsegmental right basilar opacities have improved from prior. 2. Decreased pulmonary vascular congestion. ACT 112: Negative or not required by law. The above report was generated using voice recognition software. It may contain grammatical, syntax o r spelling errors. Electronically signed by: Jeffrey Kitchen M.D. 06/06/2022 8:18 AM
[2022-06-06] MEDS: METOPROLOL TARTRATE 25 MG TAB PO SCH (09:57)
[2022-06-06] MEDS: ATORVASTATIN 40 MG TAB PO SCH (09:58)
[2022-06-06] MEDS: FUROSEMIDE 20 MG TAB PO SCH (09:58)
[2022-06-06] MEDS: dilTIAZem HCL 180 MG CAPCR PO SCH (09:58)
[2022-06-06] MEDS: MONTELUKAST SODIUM 10 MG TABLET PO SCH (09:59)
[2022-06-06] MEDS: APIXABAN 2.5 MG TAB PO SCH (09:59)
[2022-06-06] MEDS: ISOSORBIDE MONO EXTENDED REL 30 MG TABCR PO SCH (09:59)
[2022-06-06] MEDS: ASPIRIN 81 MG ECTAB PO SCH (09:59)
[2022-06-06] MEDS: LOSARTAN POTASSIUM 50 MG TAB PO SCH (10:00)
[2022-06-06] MEDS: predniSONE 20 MG TAB PO SCH (10:01)
--- NOTE | 2022-06-06 10:45 | Pulmonology Progress Note ---
Date of Service June 06, 2022 Assessment & Plan (1) RSV infection: (2) Hypoxia: (3) Asthma-COPD overlap syndrome: Plan -- Acute hypoxic respiratory failure Likely secondary to exacerbation of patient's underlying asthma-COPD from RSV infection A. 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 Right ventricle is normal in size and function mild TR, mild MR -- Ex-smoker Only 4-pack-year smoking history Quit at the age of 22 Encouraged to continue abstinence from smoking --A. fib Beta-charlene has been changed to diltiazem Given the heart rate might need to increase the dose. Will defer to hospitalist team Plan: In/out: -460 mL Prednisone taper 40 mg for 2 days followed by 20 mg for 3 days and then stop. Continue with hypertonic saline nebulized along with flutter valve and Mucinex at home. Continue with Trelegy inhaler Continue with diuresis even at home Complete course of antibiotics for total of 10 days No further recommendation from my perspective. Please call directly with any questions Case discussed with Dr. Beth Please note the above document was generated using voice recognition software. It may contain grammatical, syntax or spelling errors.Any formal questions or concerns about the content, text or information contained within the body of this dictation should be directly addressed to the provider for clarification. Admission and Anticipated Discharge Date Admission Date: May 29, 2022 Subjective Patient seen and examined at bedside. No acute distress, no adverse events overnight. Was saturating 97% on room air. Still rhonchi's able to bring up phlegm with the help of flutter valve and chest vest. Denies any headache, no nausea, vomiting Fair appetite. No chest pain Review of Systems Review of Systems: All systems reviewed & are unremarkable except as noted in Subjective Physical Exam Physical Exam: Constitutional: No acute distress HEENT: EOMI, PERRLA Respiratory system: Decreased air entry bilaterally, positive rhonchi rhonchi, no wheeze, positive crackles bilateral lower lobes CVS: S1-S2 positive, no murmurs or gallops Abdomen: Soft, nontender, nondistended, positive bowel sounds x4 Extremities: +2 pulses bilaterally radialis/ dorsalis pedis, no cyanosis, no edema Neuro: Awake alert oriented x3 Psych: Normal mood and affect G/U: No [place] Skin: no rashes, warm and dry Lymphatic: no cervical or axillary lymphadenopathy Results & Data Results & Data ([facility]) Vital Signs (Past 12 Hours) Vital Signs Temp Pulse Pulse Resp BP Pulse Ox O2 Del Method 06/06/22 07:59 36.7 C 88 18 169/97 H 95 Room Air 06/06/22 07:57 70 06/06/22 07:20 68 18 92 Room Air 06/06/22 04:55 36.8 C 76 16 164/89 H 92 Room Air 06/06/22 01:39 69 18 94 Room Air 06/05/22 23:52 36.5 C 72 16 121/69 93 Room Air 06/05/22 23:23 72 Laboratory Results 06/03/22 06:09 06/03/22 06:09 PG Care Time/CCT Total # of Minutes Spent Total Time Spent with Patient: Total time spent is greater than 50% in coordination of care (as documented) at patient's floor/unit and/or counseling patient: Coding Level of Care Code 00763 SUB INP/OBS CARE 2/35MIN Diagnoses RSV infection B33.8 Hypoxia R09.02 Asthma-COPD overlap syndrome J44.9
--- NOTE | 2022-06-06 18:12 | Discharge Summary ---
Date of Service June 06, 2022 Principal Diagnosis Acute on chronic diastolic heart failure due to atrial fibrillation rapid ventricular response Acute on chronic respiratory failure due to RSV infection Discharge Exam The patient appeared stable Vital signs as documented. Lungs are clear to auscultation and appear unlabored basilar rales have cleared Cardiac exam, irregular rate controlled rhythm with a systolic ejection murmur Abdominal exam reveals normal bowel sounds, soft non tender, no masses Extremities are nonedematous and both pedal pulses are normal. Neurologic exam is alert and oriented, no focal loss of strength or sensation Skin is without bruises or rashes Psychologically is without concerns for anxiety or depression. Discharge Data Allergies Allergy/AdvReac Type Severity Reaction Status Date / Time clomipramine AdvReac Intermediate FLU-LIKE Verified 05/29/22 10:27 SYMPTOMS Consultations 05/29/22 12:29 ED Decision to Admit Stat 05/30/22 11:00 Consult Cardiology Routine 05/30/22 12:11 Consult Pulmonology Routine 06/06/22 12:49 Consult JEISON community case manager Routine Hospital Course (1) Acute on chronic respiratory failure with hypoxemia: Patient presents acute chronic respiratory failure due to RSV and likely rapid a trial fibrillation with mild acute on chronic diastolic heart failure. Influenza is improving currently on room air with low oxygen sats Concern for bronchitis in addition to her RSV infection patient completed a course of ceftriaxone while inpatient Will be discharged with albuterol/ipratropium and formoterol plus Singulair Cough suppression Read check CXR 06/05 without infiltrate or heart failure (2) Atrial fibrillation with rapid ventricular response: Patient is on aspirin apixaban and typically was rate controlled with metoprolol. Patient should return to her metoprolol dose of tartrate 75 twice daily with diltiazem extended release 180 on 06/04/2022 with good results (3) Hypokalemia: Replete (4) CAD (coronary artery disease): Continues on aspirin and atorvastatin and isosorbide and secondary risk prevention with hypertension control (5) Pulmonary hypertension: Patient typically on dose of diuretic for this, certainly contributes to her dyspneic symptomology (6) SIADH (syndrome of inappropriate ADH production): Sodium is stable 133 Plan Patient request possible pulmonary rehab will message nurse navigator for the same Total Time Total Time Spent Total Time Spent (In Minutes): It required greater than 30 minutes to prepare this patient for discharge Discharge Plan Discharge Items Patient Disposition: Home - Self-Care Reason For Visit: ACUTE ON CHRONIC RESP FAILURE W/ HYPOX, PNX, RSV Discharge Diagnosis: heart failure from rapid heart rate from atrial fibrillation Activity: Per Instructions section Activity Comment: slowly increase activity Non-emergency contact: Primary Care Provider and Air Filler Call non-emergency contact if: your symptoms worsen Follow-up/Referrals: Irasema Madera CRNP [Primary Care Provider] - Diet: Regular Addtl Attending Provider Instructions: please take your mediations as listed and follow up with Dr Mally walters intake Felisa hyman will be calling to arrange appointment for pulmonary rehab Pending Studies at Discharge: No Stand-Alone Forms: My i[employer], Smoking Cessation Medications and DC Order Prescriptions: New diltiazem HCl 180 mg Capsule,Extended Release 24hr 180 mg PO QAM Qty: 30 3RF Continued cholecalciferol (vitamin D3) 2,000 unit capsule 2,000 units PO QAM atorvastatin 40 mg tablet 40 mg PO QAM 30 Days Qty: 30 11RF furosemide 20 mg tablet 20 mg PO QAM Qty: 30 11RF isosorbide mononitrate 30 mg tablet extended release 24 hr 30 mg PO QAM Qty: 30 11RF metoprolol tartrate 50 mg tablet 75 mg PO BID Qty: 270 3RF losartan 100 mg tablet 50 mg PO BID Qty: 90 3RF Eliquis 2.5 mg tablet 2.5 mg PO BID Qty: 180 3RF levothyroxine 25 mcg tablet 25 mcg PO QAM Qty: 90 3RF Trelegy Ellipta 200-62.5-25 mcg blister with device 1 inh inhalation DAILY Qty: 3 1RF zolpidem 5 mg tablet 5 mg PO HS Qty: 30 1RF albuterol sulfate [ProAir HFA] 90 mcg/actuation HFA aerosol inhaler 2 puff inhalation QID PRN (Reason: Shortness Of Breath) Qty: 18 4RF montelukast 10 mg tablet 10 mg PO QAM Qty: 90 1RF omega 0-avy-kdb-fish oil [Fish Oil] 360-1,200 mg capsule,delayed release(DR/EC) 1 cap PO QAM calcium carbonate [Calcium 500] 500 mg calcium (1,250 mg) tablet,chewable 500 mg PO BID acetaminophen 500 mg capsule 1,000 mg PO BID PRN (Reason: Pain) biotin 5,000 mcg Tablet,Disintegrating 7,500 mcg PO QAM Glucosamine Chondroitin 550-30-1 mg Capsule 1 cap PO QAM prednisone 20 mg tablet 20 mg PO .COMPLEX Qty: 30 0RF Rx Instructions: 20 mg orally 3 tab for 5 days, 2 tab for 5 days, 1 tab for 5 days; Discharge Orders: Discharge Order (Routine); Ordered 06/06/22 Ordered By: Andres Beth Admission Data Admit Date/Time: 05/29/22 12:44 Attending Provider: Andres Beth Admit Provider: Andres Beth Primary Care Provider: Irasema Madera Other Providers: Andres Beth ; Da Altamirano ; Finesse Hoffman Other Interventions: Discharge Summary Assessment (RN) Last Done: 06/06/22 14:19 Coding Level of Care Code HOSP INP/OBS DISCH >30 MIN Diagnoses Acute on chronic respiratory failure with hypoxemia J96.21 Atrial fibrillation with rapid ventricular response I48.91 Hypokalemia E87.6 CAD (coronary artery disease) I25.10 Pulmonary hypertension I27.20 SIADH (syndrome of inappropriate ADH production) E22.2
== END 2022-06-06 15:16 | disposition home or self-care (01) | DRG 193 ==
LOC: ED 09:55 → 4W 12:44 → SUATTDRO 12:44 → 4W 16:00